=== PATIENT | male | born 1940 | race Caucasian/White ===

== ENCOUNTER 2016-09-28 21:31 | Emergency (ER) | payer MEDICARE, OTHER ==
[2016-09-28] MEDS ORDERED: OXYMETAZOLINE 0.05% NASL SPRAY 15 ML NASAL STA (22:25)
[2016-09-28 22:26] VITALS: RESP 18
--- NOTE | 2016-09-28 22:31 | ED ---
General Adult HPI - General Chief complaint: ENT Stated complaint: nose bleed-recurring Time Seen by Provider: 09/28/16 22:05 Source: patient, RN notes reviewed Mode of arrival: ambulatory Limitations: no limitations - History of Present Illness Initial comments: Chief complaint and history of present illness a 75-year-old male to complaint of on-again off-again nosebleed for the past 24 hours. It appears to be an anterior nosebleed the patient is able to control it by holding it. It starts again. Patient recently had a sinus infection for which she was treated. Denies injury, denies being on blood thinners other than aspirin. - Related Data Previous Rx's Medication Instructions Recorded Cephalexin [Keflex] 500 mg PO Q6HR #10 cap 09/28/16 Allergies Allergy/AdvReac Type Severity Reaction Status Date / Time No Known Allergies Allergy Verified 09/28/16 21:59 Review of Systems ROS Statement: Those systems with pertinent positive or pertinent negative responses have been documented in the HPI. Review of systems no headache or visual acuity changes no pain to his nose just right sided epistaxis. he presents to the emergency room with cotton stuffed in both nares. Leading at this time is controlled. Denies chest pain shows breath GI/ problems and denies any neuro deficits. All systems were reviewed. Past medical problems significant for hypertension. Denies any surgeries. Family history not to be dry. Patient denies any ALLERGIES. Nonsmoker. ROS Other: All systems not noted in ROS Statement are negative. Past Medical History Past Medical History: Hypertension History of Any Multi-Drug Resistant Organisms: None Reported Past Surgical History: No Surgical Hx Reported Past Psychological History: No Psychological Hx Reported Smoking Status: Never smoker Past Alcohol Use History: Occasional Past Drug Use History: None Reported General Exam - General Exam Comments Initial Comments: General: The patient is awake and alert, presents with right nares epistaxis. Vital signs are temperature 98.2 pulse 80 respiratory rate 20 pulse ox 97% room air blood pressure 188/91. This is repeated just after his nose was fixed with a Merocel. At 140/105. This be repeated Eye: Pupils are equal, round and reactive to light, extra-ocular movements are intact ; there is normal conjunctiva bilaterally. No signs of icterus. Ears, nose, mouth and throat: There are moist mucous membranes. Patient denies bleeding from the right nares which is controlled at this time. Patient blow his nose removed clots. Neck: The neck is supple, Cardiovascular: Regular rate and rhythm. No murmur appreciated. No chest pain. Respiratory: No difficulty breathing Gastrointestinal: No complaint of nausea vomiting or diarrhea. Limitations: no limitations Course Vital Signs 09/28/16 09/28/16 21:59 22:25 Temperature 98.2 F Pulse Rate 80 76 Respiratory 20 18 Rate Blood Pressure 188/91 148/108 O2 Sat by Pulse 97 97 Oximetry Medical Decision Making - Medical Decision Making Patient tolerated procedure well of placing a Merocel sponges with Afrin in his right nares. No bleeding. The patient's blood pressure came down to 139/86. Accu-Chek was performed. Patient is alert oriented having a difficulties. He was given 1 cephalexin 500 to be on antibiotics as long as his koi nasal passageways plugged. The patient wants to try to remove the nasal packing on his own in 2 days. He was advised how to do that by using an keeping the sponge moist with Afrin which is provided. If after removal he develops a recurrent bleeding is return emergency room. Disposition Clinical Impression: Anterior epistaxis Disposition: HOME SELF-CARE Condition: Stable Instructions: Nosebleed (ED) Additional Instructions: Use provided nasal clamp as directed. Follow directions for home well in 2 days. Take cephalexin 4 times daily as long as the sponges and your nose. Follow-up with family physician return emergency room as needed. Prescriptions: Cephalexin [Keflex] 500 mg PO Q6HR #10 cap Time of Disposition: 23:16
[2016-09-28] MEDS ORDERED: CEPHALEXIN 500MG STARTER PACK 4 CAP BTL PO STA (23:12)
[2016-09-28 23:13] VITALS: BP 139/86; PULSE 60
[2016-09-28 23:15] LABS: Glucose,Whole Blood 131 mg/dL (75-99)
[2016-09-28 23:26] VITALS: TEMP 97
== END 2016-09-28 23:29 | disposition home or self-care (01) ==
LOC: EC 21:31
DX: R04.0 Epistaxis (principal)
CPT/HCPCS: 30901; 36415; 99283

== ENCOUNTER 2017-10-13 17:00 | Inpatient (IN) | payer MEDICARE, OTHER ==
[2017-10-13 17:24] LABS: Glucose,Whole Blood 125 mg/dL (75-99)
[2017-10-13] MEDS ORDERED: SODIUM CHLORIDE 0.9% 1,000 ML IV STA (17:36)
--- NOTE | 2017-10-13 18:16 | CT ---
EXAMINATION TYPE: CT brain wo con DATE OF EXAM: 10/13/2017 COMPARISON: NONE HISTORY: Hand and facial numbness on and off for 1-[address] DLP: 1266 mGycm Automated exposure control for dose reduction was used. FINDINGS: There is cerebral cortical atrophy. There is no mass effect nor midline shift. There is no sign of in tracranial hemorrhage. There is some hypodensity in the periventricular white matter. There is mild m ucosal thickening in the lateral right maxillary sinus. Calvarium is intact. IMPRESSION: CEREBRAL ATROPHY AND CHRONIC SMALL VESSEL ISCHEMIA. NO ACUTE INTRACRANIAL ABNORMALITY.
--- NOTE | 2017-10-13 18:17 | XR ---
EXAMINATION TYPE: XR chest 2V DATE OF EXAM: 10/13/2017 COMPARISON: NONE HISTORY: Altered mental status TECHNIQUE: Frontal and lateral views of the chest are obtained. FINDINGS: There is no heart failure nor confluent pneumonic infiltrate. There is some linear density at the left lung base. There are chest leads. Costophrenic angles are clear. There is spurring in th e thoracic spine. IMPRESSION: Subsegmental atelectasis at the left lung base. No heart failure.
[2017-10-13 18:29] LABS: Basophils % (A) 1 %; Eosinophils # (A) 0.1 k/uL (0-0.7); Eosinophils % (A) 3 %; HCT 40.6 % (39.0-53.0); Lymphocytes # (A) 1.4 k/uL (1.0-4.8); Lymphocytes % (A) 27 %; MCH 29.2 pg (25.0-35.0); MCHC 34.3 g/dL (31.0-37.0); MCV 85.2 fL (80.0-100.0); Mean Platelet Volume 8.2; Monocytes # (A) 0.4 k/uL (0-1.0); Monocytes % (A) 8 %; Neutrophils # (A) 3.1 k/uL (1.3-7.7); Neutrophils % (A) 60 %; Platelet Count 167 k/uL (150-450); RBC 4.77 m/uL (4.30-5.90); RDW 13.7 % (11.5-15.5); WBC 5.1 k/uL (3.8-10.6)
[2017-10-13 18:39] LABS: INR 1.1 (<1.2); Partial Thromboplastin Time 22.5 sec (22.0-30.0); Prothrombin Time 10.6 sec (9.0-12.0)
[2017-10-13 18:50] LABS: ALT 24 U/L (21-72); AST 26 U/L (17-59); Albumin 3.9 g/dL (3.5-5.0); Alkaline Phosphatase 66 U/L (38-126); Anion Gap 16 mmol/L; Blood Urea Nitrogen 22 mg/dL (9-20); Calcium 9.4 mg/dL (8.4-10.2); Carbon Dioxide 24 mmol/L (22-30); Chloride 106 mmol/L (98-107); Glucose 119 mg/dL (74-99); Potassium 3.6 mmol/L (3.5-5.1); Sodium 146 mmol/L (137-145); Total Bilirubin 0.5 mg/dL (0.2-1.3); Total Protein 6.6 g/dL (6.3-8.2)
[2017-10-13 19:22] LABS: Creatine Kinase 165 U/L (55-170)
[2017-10-13 19:35] LABS: Creatine Kinase MB 1.9 ng/mL (0.0-2.4); Troponin I <0.012 ng/mL (0.000-0.034)
[2017-10-13] MEDS ORDERED: ENOXAPARIN 100 MG/ML SYRINGE SQ STA (21:01)
[2017-10-13] MEDS ORDERED: DILTIAZEM 50 MG in SODIUM CHLORIDE 0.9% 40 ML IV ONE (21:15)
--- NOTE | 2017-10-13 21:20 | ED ---
General Adult HPI - General Chief complaint: Neuro Symptoms/Deficit Stated complaint: Stroke like symptoms Time Seen by Provider: 10/13/17 17:29 Source: patient Mode of arrival: wheelchair Limitations: no limitations - History of Present Illness Initial comments: 76 years old male was visiting [place] 3 days ago he had episode where family noticed that he was forgetful for about a half an hour he was also complaining about some numbness and tingling in his fingers down his both hands. No weakness of upper or lower extremities he does have a history of firm high blood pressure he does take him parents for that today in the ER he noticed will complain about palpitations now there is no confusion some palpitation no chest pain no pleuritic chest pain no symptoms of TIA or CVA no abdominal pain no frequency urgency dysuria no signs of TIA or CVA - Related Data Home Medications Medication Instructions Recorded Confirmed Allopurinol [Zyloprim] 300 mg PO DAILY 10/13/17 10/13/17 Atorvastatin [Lipitor] 20 mg PO HS 10/13/17 10/13/17 Fluticasone Nasal [place] [Flonase 1 spray EA NOSTRIL RT-DAILY PRN 10/13/17 Nasal [place]] Ginkgo Biloba 500 mg PO DAILY 10/13/17 10/13/17 Metoprolol Succinate (ER) [Toprol 50 mg PO DAILY 10/13/17 10/13/17 Xl] Mirabegron [Myrbetriq] 25 mg PO DAILY 10/13/17 10/13/17 Prostate 1 tab PO DAILY 10/13/17 10/13/17 Triamterene/Hydrochlorothiazid 1 cap PO DAILY 10/13/17 10/13/17 [Dyazide 37.5-25 Capsule] amLODIPine BESYLATE/BENAZEPRIL 1 cap PO DAILY 10/13/17 10/13/17 [Lotrel 10-20 mg Capsule] Allergies Allergy/AdvReac Type Severity Reaction Status Date / Time No Known Allergies Allergy Verified 10/13/17 18:24 Review of Systems ROS Statement: Those systems with pertinent positive or pertinent negative responses have been documented in the HPI. ROS Other: All systems not noted in ROS Statement are negative. Past Medical History Past Medical History: Hypertension History of Any Multi-Drug Resistant Organisms: None Reported Past Surgical History: No Surgical Hx Reported Past Psychological History: No Psychological Hx Reported Smoking Status: Former smoker Past Alcohol Use History: Occasional Past Drug Use History: None Reported General Exam - General Exam Comments Initial Comments: General: The patient is awake and alert, in no distress, and does not appear acutely ill. Skin: Skin is warm and dry and no rashes or lesions are noted. Eye: Pupils are equal, round and reactive to light, extra-ocular movements are intact; there is normal conjunctiva bilaterally. Ears, nose, mouth and throat: There are moist mucous membranes and no oral lesions. Neck: The neck is supple, there is no tenderness or JVD. Cardiovascular: Noticed atrial fibrillation with RVR at the time of the exam heart rate was once pain Respiratory: To auscultation bilateral, no wheezing no rhonchi no distress respiratory sterling noticed Gastrointestinal: Soft, non-distended, non-tender abdomen without masses or organomegaly noted. There is no rebound or guarding present. Bowel sounds are unremarkable. Back: There is no tenderness to palpation in the midline. There is no obvious deformity. Musculoskeletal: Normal ROM, no tenderness, There is no pedal edema. There is no calf tenderness or swelling. No cords were appreciated. Neurological: CN II-XII intact, Cranial nerves III through XII are intact. There are no obvious motor or sensory deficits. Coordination appears grossly intact. Speech is normal. Psychiatric: Cooperative, appropriate mood & affect, normal judgment. Limitations: no limitations Course Vital Signs 10/13/17 10/13/17 10/13/17 17:03 17:32 18:07 Temperature 98.7 F Pulse Rate 101 H 71 92 Respiratory 18 20 18 Rate Blood Pressure 169/86 131/69 148/80 O2 Sat by Pulse 95 97 96 Oximetry 10/13/17 20:43 Temperature Pulse Rate 90 Respiratory 18 Rate Blood Pressure 170/106 O2 Sat by Pulse 98 Oximetry EKG Findings - EKG Comments: EKG Findings:: ALLERGIES no defibrillation medical evaluation he wants to got the old EKG from 2069 is a sinus rhythm medical rate is 93 QRS duration is 86 QT/QTc is 370/460 review of this EKG does not reveal any ST elevation or definite afebrile afebrile Medical Decision Making - Lab Data Result diagrams: 10/13/17 18:18 10/13/17 18:18 Lab Results 05/07/18 05/07/18 05/07/18 Range/Units 17:23 18:18 18:18 WBC 5.1 (3.8-10.6) k/uL RBC 4.77 (4.30-5.90) m/uL Hgb 14.0 (13.0-17.5) gm/dL Hct 40.6 (39.0-53.0) % MCV 85.2 (80.0-100.0) fL MCH 29.2 (25.0-35.0) pg MCHC 34.3 (31.0-37.0) g/dL RDW 13.7 (11.5-15.5) % Plt Count 167 (150-450) k/uL Neutrophils % 60 % Lymphocytes % 27 % Monocytes % 8 % Eosinophils % 3 % Basophils % 1 % Neutrophils # 3.1 (1.3-7.7) k/uL Lymphocytes # 1.4 (1.0-4.8) k/uL Monocytes # 0.4 (0-1.0) k/uL Eosinophils # 0.1 (0-0.7) k/uL Basophils # 0.0 (0-0.2) k/uL PT (9.0-12.0) sec INR (<1.2) APTT (22.0-30.0) sec Sodium (137-145) mmol/L Potassium (3.5-5.1) mmol/L Chloride (98-107) mmol/L Carbon Dioxide (22-30) mmol/L Anion Gap mmol/L BUN (9-20) mg/dL Creatinine (0.66-1.25) mg/dL Est GFR (CKD-EPI)AfAm (>60 ml/min/1.73 sqM) Est GFR (CKD-EPI)NonAf (>60 ml/min/1.73 sqM) Glucose (74-99) mg/dL POC Glucose (mg/dL) 125 H (75-99) mg/dL POC Glu Detail Technician ID Ambreen Ferreira Calcium (8.4-10.2) mg/dL Total Bilirubin (0.2-1.3) mg/dL AST (17-59) U/L ALT (21-72) U/L Alkaline Phosphatase (38-126) U/L Total Creatine Kinase 165 (55-170) U/L CK-MB (CK-2) 1.9 (0.0-2.4) ng/mL CK-MB (CK-2) Rel Index 1.2 Troponin I <0.012 (0.000-0.034) ng/mL Total Protein (6.3-8.2) g/dL Albumin (3.5-5.0) g/dL 10/13/17 10/13/17 Range/Units 18:18 18:18 WBC (3.8-10.6) k/uL RBC (4.30-5.90) m/uL Hgb (13.0-17.5) gm/dL Hct (39.0-53.0) % MCV (80.0-100.0) fL MCH (25.0-35.0) pg MCHC (31.0-37.0) g/dL RDW (11.5-15.5) % Plt Count (150-450) k/uL Neutrophils % % Lymphocytes % % Monocytes % % Eosinophils % % Basophils % % Neutrophils # (1.3-7.7) k/uL Lymphocytes # (1.0-4.8) k/uL Monocytes # (0-1.0) k/uL Eosinophils # (0-0.7) k/uL Basophils # (0-0.2) k/uL PT 10.6 (9.0-12.0) sec INR 1.1 (<1.2) APTT 22.5 (22.0-30.0) sec Sodium 146 H (137-145) mmol/L Potassium 3.6 (3.5-5.1) mmol/L Chloride 106 (98-107) mmol/L Carbon Dioxide 24 (22-30) mmol/L Anion Gap 16 mmol/L BUN 22 H (9-20) mg/dL Creatinine 0.90 (0.66-1.25) mg/dL Est GFR (CKD-EPI)AfAm >90 (>60 ml/min/1.73 sqM) Est GFR (CKD-EPI)NonAf 82 (>60 ml/min/1.73 sqM) Glucose 119 H (74-99) mg/dL POC Glucose (mg/dL) (75-99) mg/dL POC Glu Detail Technician ID Calcium 9.4 (8.4-10.2) mg/dL Total Bilirubin 0.5 (0.2-1.3) mg/dL AST 26 (17-59) U/L ALT 24 (21-72) U/L Alkaline Phosphatase 66 (38-126) U/L Total Creatine Kinase (55-170) U/L CK-MB (CK-2) (0.0-2.4) ng/mL CK-MB (CK-2) Rel Index Troponin I (0.000-0.034) ng/mL Total Protein 6.6 (6.3-8.2) g/dL Albumin 3.9 (3.5-5.0) g/dL Critical Care Time Total Critical Care Time: 30 Critical Care Time: Noticed new-onset atrial fibrillation with the RVR also noticed blood pressure was quite elevated patient had the PA and a TIA when he was traveling to [place] his amnesia stayed for about half an hour then he had down change in the mental status where he was confused there was also 2 days ago he is not on any blood thinners at this point her blood pressure was quite high as well though he does take him Norvasc plus KARLI inhibitor combination along with some diuretics and he said he took all his pills today he was given Lovenox 1 mg/kg subcu his creatinine is good, cardiology be consulted and he is currently echocardiogram to see if he needs to go on his overall toe a Coumadin with the that to cardiology will also consult neurology for amnesia which lasted for about [address] was done it did not show any subdural or epidural, didn't show any infarction either Disposition Clinical Impression: Atrial fibrillation with RVR, TIA (transient ischemic attack), Hypertension Disposition: ADMITTED IP TO THIS HOSP Condition: Good Referrals: Julio Gurrola MD [Primary Care Provider] - 1-2 days
[2017-10-13] MEDS ORDERED: ONDANSETRON 4 MG/2 ML VIAL IVP PRN (21:25)
[2017-10-13] MEDS ORDERED: MORPHINE SULFATE 4 MG/ML SYRINGE IV PRN (21:25)
[2017-10-13] MEDS ORDERED: NALOXONE 0.4 MG/ML 1 ML VIAL IV PRN (21:25)
[2017-10-13] MEDS ORDERED: FLUTICASONE 50MCG/SPRAY NASAL 16GM EA NOSTRIL PRN (21:31)
[2017-10-13 22:38] VITALS: BMI 32.5
[2017-10-14] MEDS: DILTIAZEM 50 MG in SODIUM CHLORIDE 0.9% 40 ML IV SCH ×2 (06:24→16:10)
--- NOTE | 2017-10-14 06:33 | HP ---
HISTORY AND PHYSICAL DATE OF SERVICE: 10/14/2017. CHIEF COMPLAINTS: Tingling, numbness, some forgetfulness. HISTORY OF PRESENT ILLNESS: This 77-year-old gentleman with a past medical history of multiple medical problems including hypertension, being followed by Dr. Gurrola in the outpatient setting was apparently went down to and the patient woke up and the family found the patient slightly disoriented. Patient feeling dizzy. Because of concern for stroke, patient taken to [facility] and admitted for further evaluation and treatment. CT scan of the brain did not show any acute abnormality, but however the patient was found to have new onset atrial fibrillation. Lovenox was given and the patient was also started on Cardizem drip at 5 mg with control of the heart rate. There is no history of any fever, rigors. No history of chest pain, palpitation at this time. PAST MEDICAL HISTORY: History of hypertension. MEDICATIONS: Prior to admission include home medications are: 1. Ginkgo biloba prostate 1 p.o. daily. 2. Zyloprim 300 mg. 3. Myrbetriq 25 mg p.o. daily. 4. Flonase 1 spray daily p.r.n. 5. Lipitor 20 mg q.h.s. 6. Lotrel 10/20 p.o. daily. 7. 37.5/25 p.o. daily. 8. Toprol-XL 50 mg. ALLERGIES: None. FAMILY HISTORY: History of CVA, TIA in the family. SOCIAL HISTORY: History of alcohol. No history of smoking. REVIEW OF SYSTEMS: ENT: No diminished hearing or vision. CARDIOVASCULAR: No angina. RESPIRATORY: As mentioned earlier. GI: No nausea. : No dysuria. NERVOUS SYSTEM: As mentioned earlier. ALLERGY: No asthma. MUSCULOSKELETAL: As mentioned earlier. HEMATOLOGY: No history of anemia. ENDOCRINE: No history of diabetes or hyperthyroidism. CONSTITUTIONAL: As mentioned earlier. DERMATOLOGY: Negative. RHEUMATOLOGY: Negative. PSYCHIATRY: As mentioned earlier. PHYSICAL EXAMINATION: Alert and oriented x2. Pulse 95. Blood pressure 149/83, respiration 18, temperature 98.3, pulse ox 94% on room air. HEENT: Conjunctivae normal. Oral mucosa moist. Neck is no jugular venous distention. No carotid bruit. No lymph node enlargement. CARDIOVASCULAR: S1, S2. No S3, no S4. RESPIRATORY: Breath sounds diminished in the bases. A few scattered rhonchi. No crackles. ABDOMEN: Soft, nontender. No mass palpable. LEGS: No edema, no swelling. NERVOUS SYSTEM: Higher functions as mentioned earlier. Moves all 4 limbs. No focal motor deficits. LYMPHATICS: No lymphadenopathy in the neck, axillae, groin. SKIN: No ulcers. LAB STUDIES: At this time, sodium 142. CBC within normal limits. ASSESSMENT: 1. Weakness and dizziness and disorientation, possible acute transient ischemic attack. 2. Atrial fibrillation with new fast ventricular rate. 3. Hypertension. 4. Hyperlipidemia. RECOMMENDATIONS AND DISCUSSION: This 77-year-old gentleman who presented with multiple complex medical issues, will monitor the patient closely. Continue the current management and symptomatic treatment. Start antiplatelet agents, full neurovascular workup. Cardiology and neurology consultations will be obtained. 2D echo and carotid Doppler. Prognosis guarded because of the complex medical issues. The patient is given Lovenox at this time. Long-term anticoagulation is recommended after evaluation with a 2D echo. Discussed with the patient who understands. Further recommendations to follow. Dr. Bush will follow. MMODL / IJN: [id number] / MTDD
[2017-10-14] MEDS: amLODIPine 10 MG TAB PO SCH (08:49)
[2017-10-14] MEDS: METOPROLOL SUCCINATE (ER) 50 MG TAB.ER.24H PO SCH (08:49)
[2017-10-14] MEDS: TRIAMTERENE-HCTZ 37.5-25MG 1 EACH CAP PO SCH (08:49)
[2017-10-14] MEDS: ALLOPURINOL 300 MG TAB PO SCH (08:49)
[2017-10-14] MEDS: ASPIRIN 81 MG PO SCH (08:49)
[2017-10-14] MEDS: LISINOPRIL 20 MG TAB PO SCH (08:49)
[2017-10-14] MEDS: NON-FORMULARY DRUG (Mirabegron [Myrbetriq] 25 MG) PO SCH (08:59)
[2017-10-14] MEDS ORDERED: NON-FORMULARY DRUG (Ginkgo Biloba [Ginkgo Biloba] 500 MG) PO SCH (09:00)
[2017-10-14] MEDS ORDERED: ENOXAPARIN 100 MG/ML SYRINGE SQ SCH (09:00)
[2017-10-14] MEDS ORDERED: PROSTATE PO SCH (09:00)
--- NOTE | 2017-10-14 10:25 | ECHOF ---
Referral Reason:New onset afib MEASUREMENTS -------- HEIGHT: 152.4 cm WEIGHT: 103.0 kg BP: 200/60 IVSd: 1.4 cm (0.6 - 1.1) LVIDd: 5.2 cm (3.9 - 5.3) LVPWd: 1.2 cm (0.6 - 1.1) IVSs: 1.5 cm LVIDs: 3.1 cm LVPWs: 1.6 cm LA Diam: 4.9 cm (2.7 - 3.8) LAESV Index (A-L): 35.46 ml/m Ao Diam: 4.0 cm (2.0 - 3.7) AV Cusp: 1.9 cm (1.5 - 2.6) LA Diam: 4.2 cm (2.7 - 3.8) MV EXCURSION: 16.898 mm (> 18.000) MV EF SLOPE: 158 mm/s (70 - 150) EPSS: 0.2 cm MV E Thor: 0.86 m/s MV DecT: 157 ms MV A Thor: 0.33 m/s MV E/A Ratio: 2.63 RAP: 5.00 mmHg RVSP: 27.27 mmHg FINDINGS -------- Atrial fibrillation. This was a technically adequate study. The left ventricular size is normal. There is mild concentric left ventricular hypertrophy. Overa ll left ventricular systolic function is low-normal with, an EF between 50 - 55 %. The right ventricle is normal in size. The left atrium is markedly dilated. LA is moderately dilated 34-39 ml/m2 The right atrial size is normal. The aortic valve is trileaflet, and appears structurally normal. No aortic stenosis or regurgitation. Mild mitral annular calcification present. Mild mitral regurgitation is present. Mild tricuspid regurgitation present. There is no evidence of pulmonary hypertension. The right v entricular systolic pressure, as measured by Doppler, is 27.27mmHg. There is no pulmonic regurgitation present. The aortic root size is normal. There is no pericardial effusion. CONCLUSIONS -------- 1. The left ventricular size is normal. 2. There is mild concentric left ventricular hypertrophy. 3. Overall left ventricular systolic function is low-normal with, an EF between 50 - 55 %. 4. The left atrium is markedly dilated. 5. LA is moderately dilated 34-39 ml/m2 6. The aortic valve is trileaflet, and appears structurally normal. No aortic stenosis or regurgitati on. 7. Mild mitral annular calcification present. 8. Mild mitral regurgitation is present. 9. Mild tricuspid regurgitation present. 10. There is no evidence of pulmonary hypertension. 11. The right ventricular systolic pressure, as measured by Doppler, is 27.27mmHg. 12. There is no pulmonic regurgitation present. 13. The aortic root size is normal. 14. There is no pericardial effusion. COMMUNICATIONS PROJECT MANAGER: Jennifer Alston RDCS
[2017-10-14] MEDS ORDERED: MORPHINE ORAL SOLN 10 MG/5 ML CUP PO PRN (10:33)
--- NOTE | 2017-10-14 12:05 | US ---
EXAMINATION TYPE: US carotid duplex BILAT DATE OF EXAM: 10/14/2017 COMPARISON: NONE CLINICAL HISTORY: 77-year-old male numbness/tingling in arms, episode of amnesia. TECHNIQUE: Carotid duplex ultrasound examination. Indirect Doppler criteria was utilized. FINDINGS: EXAM MEASUREMENTS: RIGHT: Peak Systolic Velocity (PSV) cm/sec ----- Right CCA: 70.3 ----- Right ICA: 104.4 ----- Right ECA: 95.6 ICA/CCA ratio: 1.5 RIGHT: End Diastole cm/sec ----- Right CCA: 20.6 ----- Right ICA: 21.3 ----- Right ECA: 11.8 LEFT: Peak Systolic Velocity (PSV) cm/sec ----- Left CCA: 63.6 ----- Left ICA: 65.0 ----- Left ECA: 23.9 ICA/CCA ratio: 1.0 LEFT: End Diastole cm/sec ----- Left CCA: 13.4 ----- Left ICA: 14.8 ----- Left ECA: 23.9 VERTEBRALS (direction of flow): Right Vertebral: unable to visualize Left Vertebral: Antegrade Rhythm: Arrhythmia Emergency Management System Director notes: Patient had thick neck, some technical limitations. Severe atherosclerotic changes with no significant velocity increases seen bilaterally. IMPRESSION: 1. 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 2. Unable to visualize the right vertebral artery. This could be due to technical limitations, congen itally diminutive size, or occlusion. Criteria for Assigning % of Stenosis / Diameter reduction (Estimation based on the indirect measurements of the internal carotid artery velocities (ICA PSV). 1. Normal (no stenosis)=ICA PSV < 125 cm/s: ratio < 2.0: ICA EDV<40 cm/s. 2. Less than 50% stenosis=ICA PSV < 125 cm/s: ratio < 2.0: ICA EDV<40 cm/s. 3. 50 to 69% stenosis=ICA PSV of 125 to 230 cm/s: ration 2.0 ? 4.0: ICA EDV 40-100 cm/s. 4. Greater than 70% stenosis to near occlusion= ICA PSV > 230 cm/s: ratio > 4.0: ICA EDV > 100 cm/s. 5. Near occlusion= ICA PSV velocities may be low or undetectable: variable ratio and ICA EDV. 6. Total occlusion=unable to detect flow.
[2017-10-14] MEDS ORDERED: PROPAFENONE 150 MG TAB PO STA (15:56)
--- NOTE | 2017-10-14 16:01 | P.CRDCN ---
History of Present Illness Consult date: 10/14/17 Requesting physician: Qing Alonso Consult reason: atrial fibrillation Chief complaint: Brief episode of memory loss, atrial fibrillation History of present illness: This is a pleasant 77-year-old gentleman with history of hypertension , hyperlipidemia, prior TIA, who was recently at the [facility], he states that he drank an excessive amount while he was there, the following morning upon wakening he did not know he where he was, the symptoms lasted approximately 15 minutes in duration. They drove home, and patient came to the hospital and for further evaluation. On presentation here patient was found to be in atrial fibrillation with rapid ventricular response on he was initiated on Lovenox as well as a Cardizem drip.Echo revealed an ejection fraction of 50- 55%. Time of my examination, patient continues to be in atrial fibrillation, he is asymptomatic. He is on a Cardizem drip at 5 and his heart rate is low 100s. We will give the patient a one-time dose of Rythmol to see if we can convert the patient to normal sinus rhythm. We'll discontinue the Lovenox and start the patient on Eliquis 5 mg one tablet by mouth twice a day. It was explained to the patient the importance of anticoagulation for stroke prevention. Past Medical History Past Medical History: Hypertension History of Any Multi-Drug Resistant Organisms: None Reported Past Surgical History: No Surgical Hx Reported Past Anesthesia/Blood Transfusion Reactions: Unable to Obtain Past Psychological History: No Psychological Hx Reported Smoking Status: Never smoker Past Alcohol Use History: Occasional Additional Past Alcohol Use History / Comment(s): Reports drinking 1-2 drinks per day. Used to smoke cigars. Past Drug Use History: None Reported - Past Family History Mother Family Medical History: CVA/TIA Father Family Medical History: Myocardial Infarction ([place]) Medications and Allergies Home Medications Medication Instructions Recorded Confirmed Type Allopurinol [Zyloprim] 300 mg PO DAILY 10/13/17 10/13/17 History Atorvastatin [Lipitor] 20 mg PO HS 10/13/17 10/13/17 History Fluticasone Nasal [place] [Flonase 1 spray EA NOSTRIL RT-DAILY PRN 10/13/17 History Nasal [place]] Ginkgo Biloba 500 mg PO DAILY 10/13/17 10/13/17 History Metoprolol Succinate (ER) [Toprol 50 mg PO DAILY 10/13/17 10/13/17 History Xl] Mirabegron [Myrbetriq] 25 mg PO DAILY 10/13/17 10/13/17 History Prostate 1 tab PO DAILY 10/13/17 10/13/17 History Triamterene/Hydrochlorothiazid 1 cap PO DAILY 10/13/17 10/13/17 History [Dyazide 37.5-25 Capsule] amLODIPine BESYLATE/BENAZEPRIL 1 cap PO DAILY 10/13/17 10/13/17 History [Lotrel 10-20 mg Capsule] Allergies Allergy/AdvReac Type Severity Reaction Status Date / Time No Known Allergies Allergy Verified 10/13/17 18:24 Physical Exam Vitals: Vital Signs Temp Pulse Pulse Resp BP BP Pulse Ox 10/14/17 15:19 96.0 F L 74 18 136/79 97 10/14/17 11:39 96.8 F L 92 16 167/87 95 10/14/17 09:13 95 10/14/17 08:00 96.0 F L 91 16 139/88 95 10/14/17 03:30 96.1 F L 98 18 141/83 96 10/14/17 00:00 97.0 F L 87 18 123/87 95 10/13/17 22:20 96.3 F L 95 18 148/93 94 L 10/13/17 22:03 94 18 160/80 98 10/13/17 21:25 98.2 F 93 20 146/80 98 10/13/17 20:43 90 18 170/106 98 10/13/17 18:07 92 18 148/80 96 10/13/17 17:32 71 20 131/69 97 10/13/17 17:03 98.7 F 101 H 18 169/86 95 Intake and Output 10/14/17 10/14/17 10/14/17 06:59 14:59 22:59 Intake Total 490 Output Total 450 Balance -450 490 Intake: Intake, IV Titration 160 Amount Sodium Chloride 0.9% 1, 160 000 ml @ 100 mls/hr IV . Q10H STA Rx#:[id number] Oral 330 Output: Urine 450 Other: Voiding Method Toilet Urinal # Voids 2 # Bowel Movements 0 Weight 103 kg PHYSICAL EXAMINATION: HEENT: Head is atraumatic, normocephalic. Pupils equal, round. Neck is supple. There is no elevated jugular venous pressure. HEART EXAMINATION: Heart S1 and S2 irregularly irregular CHEST EXAMINATION: Lungs are clear to auscultation and precussion. No chest wall tenderness is noted on palpation or with deep breathing. ABDOMEN: Soft, nontender. Bowel sounds are heard. No organomegaly noted. EXTREMITIES: 2+ peripheral pulses with no evidence of peripheral edema and no calf tenderness noted. NEUROLOGIC patient is awake, alert and oriented -3. . Results 10/13/17 18:18 10/13/17 18:18 Cardiac Enzymes 10/13/17 10/13/17 Range/Units 18:18 18:18 AST 26 (17-59) U/L CK-MB (CK-2) 1.9 (0.0-2.4) ng/mL Troponin I <0.012 (0.000-0.034) ng/mL Coagulation 10/13/17 Range/Units 18:18 PT 10.6 (9.0-12.0) sec APTT 22.5 (22.0-30.0) sec CBC 10/13/17 Range/Units 18:18 WBC 5.1 (3.8-10.6) k/uL RBC 4.77 (4.30-5.90) m/uL Hgb 14.0 (13.0-17.5) gm/dL Hct 40.6 (39.0-53.0) % Plt Count 167 (150-450) k/uL Comprehensive Metabolic Panel 10/13/17 Range/Units 18:18 Sodium 146 H (137-145) mmol/L Potassium 3.6 (3.5-5.1) mmol/L Chloride 106 (98-107) mmol/L Carbon Dioxide 24 (22-30) mmol/L BUN 22 H (9-20) mg/dL Creatinine 0.90 (0.66-1.25) mg/dL Glucose 119 H (74-99) mg/dL Calcium 9.4 (8.4-10.2) mg/dL AST 26 (17-59) U/L ALT 24 (21-72) U/L Alkaline Phosphatase 66 (38-126) U/L Total Protein 6.6 (6.3-8.2) g/dL Albumin 3.9 (3.5-5.0) g/dL Current Medications Generic Name Dose Route Start Last Admin Trade Name Freq PRN Reason Stop Dose Admin Allopurinol 300 mg 10/14/17 09:00 10/14/17 08:49 Zyloprim PO 300 mg DAILY CHAITANYA Administration Amlodipine Besylate 10 mg 10/14/17 09:00 10/14/17 08:49 Norvasc PO 10 mg DAILY CHAITANYA Administration Aspirin 81 mg 10/14/17 09:00 10/14/17 08:49 Aspirin PO 81 mg DAILY CHAITANYA Administration Atorvastatin Calcium 20 mg 10/14/17 21:00 Lipitor PO HS CHAITANYA Enoxaparin Sodium 100 mg 10/14/17 09:00 10/14/17 08:49 Lovenox SQ 100 mg BID [facility] Administration Fluticasone Propionate 1 spray 10/13/17 21:31 Flonase Nasal [place] EA NOSTRIL RT-DAILY PRN Allergy Symptoms Diltiazem HCl 50 mg/ Sodium 50 mls @ 5 mls/hr 10/14/17 04:00 10/14/17 06:24 Chloride IV 5 mg/hr .Q10H CHAITANYA 5 mls/hr 5 MG/HR Administration Lisinopril 20 mg 10/14/17 09:00 10/14/17 08:49 Zestril PO 20 mg DAILY [facility] Administration Metoprolol Succinate 50 mg 10/14/17 09:00 10/14/17 08:49 Toprol Xl PO 50 mg DAILY CHAITANYA Administration Morphine Sulfate 12 mg 10/14/17 10:33 Morphine Oral Allyn 2mg/Ml PO Q4HR PRN Severe Pain Naloxone HCl 0.2 mg 10/13/17 21:25 Narcan IV Q2M PRN Opioid Reversal Non-Formulary Medication 25 mg 10/14/17 09:00 10/14/17 08:59 Mirabegron [Myrbetriq] PO Not Given DAILY [facility] Ondansetron HCl 4 mg 10/13/17 21:25 Zofran IVP Q8HR PRN Nausea And Vomiting Triamterene/HCTZ 1 each 10/14/17 09:00 10/14/17 08:49 Dyazide PO 1 each DAILY CHAITANYA Administration Intake and Output 10/14/17 10/14/17 10/14/17 06:59 14:59 22:59 Intake Total 490 Output Total 450 Balance -450 490 Intake: Intake, IV Titration 160 Amount Sodium Chloride 0.9% 1, 160 000 ml @ 100 mls/hr IV . Q10H STA Rx#:[id number] Oral 330 Output: Urine 450 Other: Voiding Method Toilet Urinal # Voids 2 # Bowel Movements 0 Weight 103 kg 10/13/17 18:18 10/13/17 18:18 EKG Interpretations (text) EKG shows atrial fibrillation with a rapid ventricular response. Assessment and Plan Plan: Assessment and plan #1 atrial fibrillation with rapid ventricular response, of new onset, paroxysmal. #2 hypertension #3 hyperlipidemia #4 prior TIA #5 episode of excessive alcohol intake the night prior. #6 brief episode of memory loss. CT of the chest reveals cerebral atrophy and chronic small vessel ischemia. No acute intracranial abnormality noted Plan Echocardiogram with Doppler study was performed which revealed an ejection fraction of 50-55%. We will give the patient one time dose of Rythmol 600 mg now. Discontinue the IV Cardizem drip. Obtain TSH level .Discontinue Lovenox and initiate Eliquis 5 mg one tablet by mouth twice a day. Patient has been educated regarding the importance of anticoagulation for stroke prevention. We will continue to follow. DNP note has been reviewed, I agree with a documented findings and plan of care. Patient was seen and examined.
[2017-10-14] MEDS ORDERED: RX INFO: IV CONTRAST WAS GIVEN 1 EACH MISC MISCELLANE PRN (19:40)
[2017-10-14] MEDS: ATORVASTATIN 20 MG TAB PO SCH (20:24)
[2017-10-14] MEDS: APIXABAN 5 MG TAB PO SCH (20:25)
--- NOTE | 2017-10-14 22:51 | CONS ---
CONSULTATION DATE OF CONSULTATION: 10/14/2017 CHIEF COMPLAINT: Altered mental status. HISTORY OF PRESENT ILLNESS: The patient is a pleasant 77-year-old male who is being evaluated by the Neurology service per the request of Dr. Alonso for an episode of confusion. The patient was with his family on Friday night and was drinking heavily. When he woke up on Friday morning, he was quite confused and disoriented. The patient was taken home by his family and his symptoms slowly improved over the next couple of days. The patient was taken to his primary care physician, Dr. Gurrola yesterday and it was recommended that he be admitted for further workup and management. In the emergency room, a CT scan of the brain was done, which showed no acute findings. There was generalized atrophy and small-vessel ischemic changes. According to his son, who was at bedside at the time of my evaluation, the patient was still somewhat confused yesterday. His symptoms were gradually getting better. Today, the patient appears to be at his baseline. The patient denies any lateralizing numbness or weakness and denies any headache or dizziness. A carotid Doppler was done, which showed moderate atherosclerosis bilaterally with no hemodynamically significant stenosis. His right vertebral artery was not visualized. His CBC, INR, comprehensive metabolic profile, TSH and cardiac enzymes were reviewed and were all within normal limits. At the time of my evaluation, he is sitting in his bedside chair and appears to be in no acute distress. The patient has been ambulating with no difficulties. PAST MEDICAL HISTORY: Hypertension, dyslipidemia. SOCIAL HISTORY: He drinks alcohol usually on weekends. There is no history of any tobacco or drug use. FAMILY HISTORY: Positive for strokes. HOME MEDICATIONS: Reviewed in the chart. ALLERGIES: No known drug allergies. REVIEW OF SYSTEMS: CONSTITUTIONAL: Negative. EYES: Negative. ENT: Negative. CARDIOVASCULAR: Negative. RESPIRATORY: Negative. NEUROLOGICAL: As mentioned above. GASTROINTESTINAL: Negative. GENITOURINARY: Negative. DERMATOLOGICAL: Negative. PSYCHIATRIC: Negative. MUSCULOSKELETAL: Positive for occasional joint pain. ENDOCRINE: Negative. PHYSICAL EXAM: Vital signs show a temperature of 96.0, pulse 74, respiration 18, blood pressure 136/79. GENERAL APPEARANCE: The patient is a well-developed, elderly male, who appears to be in no acute distress. HEENT: Normocephalic, atraumatic, no facial asymmetry is seen. NECK: Supple with no masses felt. CARDIOVASCULAR: Irregularly irregular rhythm with a normal rate. ABDOMEN: Nontender, nondistended. Extremities showed no edema or clubbing. NEUROLOGICAL EXAM: The patient is alert, aware and oriented x3. Speech and language are normal. Strength is full in all 4 extremities. Sensory exam was normal to light touch in all 4 extremities. No pronator drift is seen. No tremors or seizure-like activity is noticed. No facial asymmetry is seen on cranial nerve testing. IMPRESSION: 1. Transient confusion. 2. Small vessel ischemic disease. 3. Atrial fibrillation, new diagnosis. 4. Abnormal carotid Doppler. RECOMMENDATION: The patient's altered mental status occurred after a night of heavy alcohol use. I do believe this was mostly alcohol related as he gradually improved over the weekend as mentioned above. The patient is back to baseline at this time. His CT of the brain showed no significant abnormalities and his neurological examination is normal. An EEG has been ordered. As for his carotid Doppler findings, which mentions that the right vertebral artery was not visualized, I will order a CT angiogram of the brain and the neck for confirmation of any occlusion versus normal variance. Continue neuro checks. I will continue to follow with you. Further recommendations to follow. Thank you for allowing me to participate in the care of your patient. If you have any questions, please feel free to contact me. KRISTA / IJN: [id number] /
--- NOTE | 2017-10-15 00:33 | CT ---
EXAMINATION TYPE: CT angio head neck DATE OF EXAM: 10/14/2017 HISTORY: Numbness in bilateral arms. COMPARISON: NONE CT DLP: 427.1 mGycm. Automated Exposure Control for Dose Reduction was Utilized. TECHNIQUE: CTA scan of the neck is performed with IV Contrast, patient injected with 65ml mL of Isov ue 370, axial images are obtained, coronal and sagittal reformatted images are reviewed. Three-D arden nstructed images are created on an independent workstation and reviewed. FINDINGS: There is normal branching pattern of the great vessels on the aortic arch. There is arterial flow in the vertebral arteries. Left vertebral artery is much larger than the right. There is arterial flow i n the common internal and external carotid arteries bilaterally. There is significant lung segment pl aque formation at the right carotid artery bifurcation and estimated lumen narrowing of 60-70%. This is seen in the proximal right internal carotid artery. There is mild plaque formation on the left anali e and estimated lumen narrowing of 25% in the proximal left internal carotid artery. There is bilater al wide patency of the external carotid arteries. There is no evidence of carotid dissection. There is arterial flow in the vertebral basilar artery system. There is no significant flow in the po sterior communicating arteries. There is arterial flow in the anterior middle and posterior cerebral arteries. There is flow in both intracranial internal carotid arteries. I see no evidence of aneurysm or neovascularity. There is no sign of spasm. There is no mass effect. I see no significant luminal narrowing. There is normal contrast opacification of the venous sinuses. : Conclusion There is approximate 70% stenosis in the proximal right internal carotid artery due to extensive calc ified plaque. There is approximate 25% stenosis proximal left internal carotid artery due to plaque. No significant intracranial abnormality.
[2017-10-15] MEDS: APIXABAN 5 MG TAB PO SCH ×2 (10:52→21:28)
[2017-10-15] MEDS: LISINOPRIL 20 MG TAB PO SCH (10:52)
[2017-10-15] MEDS: ASPIRIN 81 MG PO SCH (10:52)
[2017-10-15] MEDS: amLODIPine 10 MG TAB PO SCH (10:52)
[2017-10-15] MEDS: ALLOPURINOL 300 MG TAB PO SCH (10:52)
[2017-10-15] MEDS: TRIAMTERENE-HCTZ 37.5-25MG 1 EACH CAP PO SCH (10:53)
[2017-10-15] MEDS: METOPROLOL SUCCINATE (ER) 50 MG TAB.ER.24H PO SCH (10:53)
[2017-10-15] MEDS: NON-FORMULARY DRUG (Mirabegron [Myrbetriq] 25 MG) PO SCH (10:53)
[2017-10-15] MEDS ORDERED: DEXTROSE 5% IN WATER 100 ML with AMIODARONE 150 MG IV ONE (14:08)
--- NOTE | 2017-10-15 14:34 | P.PN ---
Subjective Progress Note Date: 10/15/17 Principal diagnosis: Altered mental status This 77-year-old male continuing be evaluated by the neurology service for an episode of confusion. He woke up confused on Friday morning after a Friday night of drinking. His symptoms were slow to improve over the next couple days. He was seen by his primary care physician and they felt that he needed further workup. CT of the brain in the emergency room showed no acute intracranial abnormalities. There was some generalized fast atrophy and small vessel ischemia. His altered mental status is resolved. Recall that her carotid Doppler showed moderate atherosclerosis bilaterally. The right vertebral artery was not visualized so CTA was performed. CTA showed 70% occlusion of the right internal carotid artery and 25% on the left. Cardiology is following. At the time of my exam he is resting comfortably in bed in no acute distress. Objective - Vital Signs Vital signs: Vital Signs Temp 97.1 F L 10/15/17 11:07 Pulse 87 10/15/17 11:09 Resp 18 10/15/17 11:09 BP 173/97 10/15/17 11:07 Pulse Ox 96 10/15/17 11:07 Intake & Output 10/14/17 10/15/17 10/15/17 18:59 06:59 18:59 Intake Total 730 230 Balance 730 230 Weight 105.9 kg Intake: Intake, IV Titration 160 Amount Sodium Chloride 0.9% 1, 160 000 ml @ 100 mls/hr IV . Q10H STA Rx#:[id number] Oral 570 230 Other: Voiding Method Toilet Toilet Urinal Urinal # Voids 2 2 # Bowel Movements 0 - Constitutional General appearance: Present: average body habitus, cooperative - EENT Eyes: Present: abnormal pupil, PERRLA. Absent: ptosis ENT: Present: hearing grossly normal - Neck Neck: Present: normal ROM. Absent: rigidity - Respiratory Respiratory: negative: prolonged expiration, prolonged inspiration - Cardiovascular Rhythm: regular - Gastrointestinal General gastrointestinal: Absent: distended, tenderness - Neurologic Neurologic Comment(s): The patient is alert awake and oriented 3. Speech and language are normal. There is no facial asymmetry. Strength is 5 out of 5 in bilateral upper and lower extremities. There is no sensory deficit. No tremors or seizures are seen. Cranial nerves II through XII are intact globally. - Labs CBC & Chem 7: 10/13/17 18:18 05/07/18 18:18 Assessment and Plan (1) Altered mental status Current Visit: Yes Status: Resolved Code(s): R41.82 - ALTERED MENTAL STATUS , UNSPECIFIED SNOMED Code(s): 961107402 (2) Small vessel disease, cerebrovascular Current Visit: Yes Status: Chronic Code(s): I67.9 - CEREBROVASCULAR DISEASE , UNSPECIFIED SNOMED Code(s): 779965935 (3) Atrial fibrillation Current Visit: Yes Status: Acute Code(s): I48.91 - UNSPECIFIED ATRIAL FIBRILLATION SNOMED Code(s): 12435058 (4) Carotid stenosis Current Visit: Yes Status: Chronic Code(s): I65.29 - OCCLUSION AND STENOSIS OF UNSPECIFIED CAROTID ARTERY SNOMED Code(s): 59254014 Plan: The patient's altered mental status has improved. Recommend following an outpatient with cardiovascular surgeon. Highly recommend alcohol cessation. Continue antiplatelets and antihyperlipidemics. Barring any unforeseen abnormalities on his EEG he is cleared from a neurological standpoint. I have performed a history and physical on the above patient. I have reviewed the above note, and agree.
[2017-10-15] MEDS: AMIODARONE 450 MG in DEXTROSE 5% IN WATER 250 ML IV SCH ×4 (15:26→21:25)
[2017-10-15] MEDS: SODIUM CHLORIDE 0.9% 1,000 ML IV SCH (17:17)
--- NOTE | 2017-10-15 18:28 | EEG ---
ELECTROENCEPHALOGRAM REPORT DATE OF SERVICE: 10/15/2017. REASON FOR TESTING: Altered mental status. DESCRIPTION OF THE PROCEDURE: This EEG was performed using a 21 channel digital electroencephalograph, following international 10-20 system. DESCRIPTION OF THE RECORDING: From the beginning of the tracing, and with patient's eyes closed, the background rhythm was mostly consisting of 8 Hz alpha frequency in the posterior occipital leads. No obvious asymmetry is seen. Photic stimulation was performed with a minimal driving response seen. No pathological waves were elicited. Hyperventilation was not performed. Occasional movement artifacts are seen. The patient remains awake throughout the tracing. No epileptiform discharges were seen. His EKG lead showed an irregularly irregular rhythm with a normal rate. INTERPRETATION: This awake EEG can be considered within normal limits except his EKG lead showed an irregularly irregular rhythm with a normal rate. No epileptiform discharges were seen. The absence of epileptiform discharges does not rule out the diagnosis of epilepsy, therefore clinical correlation is recommended. MMHEATHERL / IJN: [id number] /
--- NOTE | 2017-10-15 18:55 | PN ---
PROGRESS NOTE This patient was admitted with some mental status changes and questionable TIA. Neurology consultation noted. The patient remains in atrial flutter with a controlled rate. Blood pressure is 160/70 mmHg. First and second heart sounds are normal. Lungs are clinically clear to auscultation and percussion. Patient's carotid duplex study shows 70% stenosis. Discussed with the patient we will start the patient on IV amiodarone and see whether we can convert the patient to the normal sinus rhythm, otherwise patient will be considered for a STONE cardioversion tomorrow. MMODL / IJN: [id number] /
--- NOTE | 2017-10-15 20:09 | MR ---
EXAMINATION TYPE: MR brain wo/w con DATE OF EXAM: 10/15/2017 COMPARISON: NONE HISTORY: R/O CVA Gadavist 10 TECHNIQUE: Multiplanar, multisequence images of the brain and brainstem is performed without and with IV contras t, utilizing 10 mL intravenous Gadavist . FINDINGS: There is cerebral cortical atrophy. There is no mass effect nor midline shift. There is no sign of intracranial hemorrhage. There is thinning of the corpus callosum. There is mild extensive nu merous foci of increased signal in the periventricular white matter on the T2 and FLAIR images. These measure up to 1 cm in the total number is more than 25. There is mild mucosal thickening in the righ t maxillary and ethmoid air cells. There is no evidence of orbital mass. The brainstem is intact. I s ee no definite cortical infarct. I see no pathologic enhancement. IMPRESSION: Mild sinusitis. Extensive white matter changes consistent with chronic small vessel ischemia or demyelinating disease . Cerebral atrophy. No evidence of cortical infarct.
[2017-10-15] MEDS: ATORVASTATIN 20 MG TAB PO SCH (21:28)
--- NOTE | 2017-10-15 21:34 | PN ---
PROGRESS NOTE DATE OF SERVICE: 10/15/2017 PRESENTING COMPLAINT: Increasing forgetfulness. INTERVAL HISTORY: The patient admitted with increasing forgetfulness. Neuro workup is in play. The patient is more awake today, tolerating a diet, awaiting some more studies, including EEG results when I saw this patient, also was pending an MRI as per Neurology. The patient also remains in atrial fibrillation. REVIEW OF SYSTEMS: Done for constitutional, cardiovascular, GI, pulmonary; relevant findings as above. CURRENT MEDICATIONS: Reviewed that include: 1. Allopurinol. 2. Norvasc. 3. Eliquis. 4. Zestril. 5. Toprol. EXAMINATION: Temperature 97.1 pulse 87, respirations 18, blood pressure 133/97, pulse ox 96% on room air. GENERAL APPEARANCE: Sitting up at the edge of the bed, more comfortable. EYES: Pupil equal. Conjunctivae normal. NECK: JVD not raised. Mass not palpable. RESPIRATORY: Effort normal. LUNGS: Slightly decreased breath sounds. CARDIOVASCULAR: Heart sounds irregular. No edema. ABDOMEN: Soft, nontender. Liver, spleen not palpable. PSYCHIATRY: Awake, answering questions appropriately. INVESTIGATIONS: White count 5.1, potassium 4.6. ASSESSMENT: 1. Possible acute metabolic upon admission, cause unclear. 2. Essential hypertension. 3. Persistent atrial fibrillation. 4. Check for cognitive impairment. 5. Right internal carotid artery 70% stenosis. PLAN: Continue current medication and treatment plan. Await further input from Neurology later in the day. Cardiology has decided to put the patient on IV amiodarone and if does not revert to sinus rhythm, will consider doing a STONE and a cardioversion. It may be noted that the patient's left atrium is rather enlarged and the probability of him staying in sinus rhythm is not very high. Will do a mini-mental state examination on the patient. MMODL / IJN: [id number] /
[2017-10-16] MEDS: AMIODARONE 450 MG in DEXTROSE 5% IN WATER 250 ML IV SCH ×2 (01:11)
[2017-10-16 08:21] VITALS: RESP 16
[2017-10-16] MEDS ORDERED: IV FLUID CONTINUATION 950 ML IV ONE (08:25)
[2017-10-16] MEDS ORDERED: LIDOCAINE 1% INJ 10MG/ML (20 ML MDV) ONE (08:28)
[2017-10-16] MEDS ORDERED: PROPOFOL 10 MG/ML 20 ML VIAL IV ONE (08:28)
[2017-10-16] MEDS: BENZOCAINE SPRAY 1 CAN MUCOUS MEM ONE ×2 (08:40→08:44)
--- NOTE | 2017-10-16 09:14 | ECHOT ---
TRANSESOPHAGEAL ECHOCARDIOGRAM TRANSESOPHAGEAL ECHOCARDIOGRAM: Mr. Pierre is a 76-year-old gentleman who came to the hospital with recent onset of atrial fibrillation. Patient was tried on Rythmol as well as IV amiodarone but he persisted to be in atrial fibrillation. In view of that, the patient was advised transesophageal echocardiogram and cardioversion. PROCEDURE #1: Patient was given intravenous sedation with propofol by the nurse pest control service technician and transesophageal echocardiogram was performed without any complications. The left ventricular chamber is normal in size with normal left ventricular systolic function. There is a mild thickening of the mitral and aortic leaflets noted, tricuspid valve morphology is normal. There is mild to moderate mitral regurgitation noted. There is no evidence of thrombus in left atrium or atrial appendage. Mild amount of smoke is noted in the left atrium. There is no evidence of any significant aortic regurgitation. Interatrial septum is intact and there is no evidence of any PFO by saline contrast study. FINAL IMPRESSION: 1. Left ventricular systolic function is normal. 2. There is no evidence of thrombus in the left atrium or atrial appendage. A small amount of smoke is noted. 3. There is evidence of mild degree of mitral regurgitation. Interatrial septum is intact. RECOMMENDATIONS: Proceed with cardioversion. PROCEDURE #2: Elective cardioversion. Patient was given intravenous sedation by nurse pest control service technician and subsequently elective cardioversion was performed in synchronous mode with 200 joules. Patient converted to the normal sinus rhythm, and his vital signs remain stable. MMODL / IJN: [id number] /
[2017-10-16] MEDS: TRIAMTERENE-HCTZ 37.5-25MG 1 EACH CAP PO SCH (09:46)
[2017-10-16] MEDS: METOPROLOL SUCCINATE (ER) 50 MG TAB.ER.24H PO SCH (09:47)
[2017-10-16] MEDS: amLODIPine 10 MG TAB PO SCH (09:48)
[2017-10-16] MEDS: ALLOPURINOL 300 MG TAB PO SCH (09:48)
[2017-10-16] MEDS: ASPIRIN 81 MG PO SCH (09:48)
[2017-10-16] MEDS: APIXABAN 5 MG TAB PO SCH ×2 (09:48→21:16)
[2017-10-16] MEDS: LISINOPRIL 20 MG TAB PO SCH (09:48)
[2017-10-16] MEDS: NON-FORMULARY DRUG (Mirabegron [Myrbetriq] 25 MG) PO SCH (09:50)
[2017-10-16] MEDS ORDERED: SENNOSIDES 8.6 MG TAB PO STA (09:53)
[2017-10-16] MEDS: AMIODARONE 200 MG TAB PO SCH ×2 (11:03→21:16)
--- NOTE | 2017-10-16 15:35 | PN ---
PROGRESS NOTE DATE OF SERVICE: October 16, 2017. PRESENTING COMPLAINT: Increased forgetful. RECENT HISTORY: This patient admitted with increasing forgetfulness. Neuro workup was done. The patient also been in atrial fibrillation. This morning the patient did have a STONE. The thrombus was ruled out. Patient did undergo an successful cardioversion. Sitting up in a chair, comfortable. REVIEW OF SYSTEMS: Done for constitutional, cardiovascular, GI, pulmonary; relevant findings as above. CURRENT MEDICATIONS: Reviewed. EXAMINATION: Temperature 97.7, pulse 68, respirations 18, blood pressure 147/87, pulse ox 93% on room air. GENERAL APPEARANCE: Sitting up in a chair, comfortable. Eyes pupils are equal. Conjunctivae normal. HEENT external appearance of nose and ears normal. Oral cavity normal. Neck: JVD not raised. Mass not palpable. Respiratory effort normal. Lungs decreased breath sounds. Cardiovascular: First and second sounds normal. No edema. ABDOMEN: Soft. The liver and spleen not palpable. Psychiatry: Alert and oriented times three. Mood and affect normal. INVESTIGATIONS: No blood work from today. ASSESSMENT: 1. Acute metabolic encephalopathy, present on admission, cause unclear. 2. Essential hypertension. 3. Persistent atrial fibrillation, now status post cardioversion and sinus rhythm. 4. Right internal carotid artery stenosis 70%. 5. Possible mild cognitive impairment. PLAN: Continue current medication and treatment plan. Watch telemetry for another 24 hours. Will follow. MMHEATHERL / IJN: [id number] /
[2017-10-16] MEDS: SODIUM CHLORIDE 0.9% 1,000 ML IV SCH (16:25)
[2017-10-16] MEDS ORDERED: BISACODYL 5 MG TABLET.DR PO STA (16:34)
[2017-10-16 17:37] VITALS: TEMP 97.6
[2017-10-16] MEDS: ATORVASTATIN 20 MG TAB PO SCH (21:16)
[2017-10-17] MEDS: LISINOPRIL 20 MG TAB PO SCH (07:48)
[2017-10-17] MEDS: AMIODARONE 200 MG TAB PO SCH ×2 (07:48→15:30)
[2017-10-17] MEDS: METOPROLOL SUCCINATE (ER) 50 MG TAB.ER.24H PO SCH (07:48)
[2017-10-17] MEDS: ALLOPURINOL 300 MG TAB PO SCH (07:48)
[2017-10-17] MEDS: amLODIPine 10 MG TAB PO SCH (07:48)
[2017-10-17] MEDS: TRIAMTERENE-HCTZ 37.5-25MG 1 EACH CAP PO SCH (07:48)
[2017-10-17] MEDS: ASPIRIN 81 MG PO SCH (07:49)
[2017-10-17] MEDS: APIXABAN 5 MG TAB PO SCH (07:49)
[2017-10-17] MEDS: NON-FORMULARY DRUG (Mirabegron [Myrbetriq] 25 MG) PO SCH (07:50)
[2017-10-17 08:00] VITALS: PULSE 74
[2017-10-17 11:56] VITALS: BP 141/71
[2017-10-17] MEDS: SODIUM CHLORIDE 0.9% 1,000 ML IV SCH (13:38)
[2017-10-17] MEDS ORDERED: CEPHALEXIN 500 MG CAP PO STA (14:46)
--- NOTE | 2017-10-17 19:27 | DS ---
DISCHARGE SUMMARY DATE OF ADMISSION: 10/13/17. DATE OF DISCHARGE: 10/17/17. FINAL DIAGNOSES: 1. Acute metabolic encephalopathy, present on admission. 2. Essential hypertension. 3. Persistent atrial fibrillation, status post cardioversion and into sinus rhythm. 4. Right internal carotid artery stenosis 70%. 5. Possible mild cognitive impairment. 6. Acute cellulitis at the IV site in the right arm. HOSPITAL COURSE: This patient presented with some forgetfulness. The patient's MRI of the brain showed some chronic changes, some cerebral atrophy. EEG was within normal limits. CT angio 70% stenosis of the proximal right internal carotid artery. 2D echo, EF of 50-55%. No wall motion abnormality. The patient also had a STONE that did not show any thrombus, and cardioversion was done. Patient remained in sinus rhythm. The patient was noticed to have some cellulitis at the IV site for which patient was started on Keflex. The patient was cleared by Cardiology and Dr. Duran to be discharged. EXAM: Lungs: Fair entry. Cardiovascular: First and second sounds normal. Some redness in the right forearm at the IV site. DC MEDICATIONS: Allopurinol 300 mg a day, Lipitor 20 mg q.h.s., Flonase 1 spray each nostril daily, Toprol-XL 50 mg a day. Myrbetriq 25 mg p.o. daily, prostate 1 tab p.o. daily, Dyazide 37.5/125 one capsule p.o. daily, Cordarone 200 mg p.o. t.i.d., Eliquis 5 mg b.i.d., aspirin 81 mg a day, Keflex 500 mg p.o. q.8, Norvasc 10 mg p.o. daily. FOLLOWUP: Follow up with Dr. Gurrola on 10/27/17. Follow up with Dr. Duran in 10 days, follow Dr. VC Stein on 11/04/17. MMODL / IJN: [id number] /
== END 2017-10-17 16:00 | disposition home or self-care (01) | DRG 308 ==
LOC: EC 17:00 → 6SEL 21:31
PROVIDERS: ADMIT Hospitalist; ATTEND Hospitalist
PROC: B24BZZ4 Ultrasonography of Heart with Aorta, Transesophageal (ICD-10-PCS; 2017-10-16)
PROC: 5A2204Z Restoration of Cardiac Rhythm, Single (ICD-10-PCS; principal; 2017-10-16 09:40)
DX: I48.1 Persistent atrial fibrillation (principal); G93.41 Metabolic encephalopathy; L03.113 Cellulitis of right upper limb; T82.7XXA Infection and inflammatory reaction due to other cardiac and vascular devices, implants and grafts, initial encounter; E78.5 Hyperlipidemia, unspecified; I10 Essential (primary) hypertension; I65.21 Occlusion and stenosis of right carotid artery; I73.9 Peripheral vascular disease, unspecified; M10.9 Gout, unspecified; G31.84 Mild cognitive impairment of uncertain or unknown etiology; Z79.899 Other long term (current) drug therapy; Z87.891 Personal history of nicotine dependence; Z86.73 Personal history of transient ischemic attack (TIA), and cerebral infarction without residual deficits; Z82.49 Family history of ischemic heart disease and other diseases of the circulatory system; Z82.3 Family history of stroke
CPT/HCPCS: 36415; 70450; 70496; 70498; 70553; 71046; 80053; 82550; 82553; 84443; 84484; 85025; 85610; 85730; 92960; 93005; 93306; 93312; 93320; 93325; 93880; 94760; 95819

== ENCOUNTER 2018-05-07 10:29 | Emergency (ER) | payer MEDICARE, OTHER ==
[2018-05-07 10:59] VITALS: RESP 18
--- NOTE | 2018-05-07 11:39 | ED ---
Extremity Problem HPI - General Chief complaint: Extremity Problem,Nontraumatic Stated complaint: poss blood clot-sent by Time Seen by Provider: 05/07/18 11:15 Source: patient, RN notes reviewed, old records reviewed Mode of arrival: ambulatory - History of Present Illness Initial comments: Patient is a 77-year-old male presents emergency murmurs today with chief complaint of one week of left leg pain and swelling. He has a history of A. fib , currently in [facility]. He's had a history of TIAs. He denies any chest pain headaches or shortness of breath. Patient states that he went to his PCP for the leg pain and swelling yesterday. They called today due to increasing swelling and pain. They sent him here to get an ultrasound to rule out blood clot. Patient reports that he has had no trauma the leg. He denies any skin changes. - Related Data Home Medications Medication Instructions Recorded Confirmed Allopurinol [Zyloprim] 300 mg PO DAILY 10/13/17 05/07/18 Atorvastatin [Lipitor] 20 mg PO HS 10/13/17 05/07/18 Fluticasone Nasal [place] [Flonase 2 spray EA NOSTRIL BID 10/13/17 05/07/18 Nasal [place]] Metoprolol Succinate (ER) [Toprol 50 mg PO DAILY 10/13/17 05/07/18 XL] Triamterene/Hydrochlorothiazid 1 cap PO DAILY 10/13/17 05/07/18 [Dyazide 37.5-25 Capsule] ALPRAZolam [Xanax] 0.125 - 0.25 mg PO BID PRN 05/07/18 05/07/18 Amiodarone [Cordarone] 200 mg PO DAILY 05/07/18 05/07/18 Fish Oil/Dha/Epa [Fish Oil 1,200 2 cap PO DAILY 05/07/18 05/07/18 mg Fish Oil] Olmesartan Medoxomil 40 mg PO DAILY 05/07/18 05/07/18 Potassium Chloride ER [K-Dur 20] 20 meq PO DAILY 05/07/18 05/07/18 Tamsulosin HCl [Flomax] 0.4 mg PO DAILY 05/07/18 05/07/18 amLODIPine BESYLATE 5 mg PO DAILY 05/07/18 05/07/18 Previous Rx's Medication Instructions Recorded Apixaban [Eliquis] 5 mg PO BID #60 tab 10/17/17 amLODIPine [Norvasc] 10 mg PO DAILY #30 tab 10/17/17 Allergies Allergy/AdvReac Type Severity Reaction Status Date / Time No Known Allergies Allergy Verified 05/07/18 11:19 Review of Systems ROS Statement: Those systems with pertinent positive or pertinent negative responses have been documented in the HPI. ROS Other: All systems not noted in ROS Statement are negative. Past Medical History Past Medical History: Atrial Fibrillation, Hypertension History of Any Multi-Drug Resistant Organisms: None Reported Past Surgical History: No Surgical Hx Reported Past Anesthesia/Blood Transfusion Reactions: Unable to Obtain Past Psychological History: No Psychological Hx Reported Smoking Status: Never smoker Past Alcohol Use History: Occasional Past Drug Use History: None Reported - Past Family History Mother Family Medical History: CVA/TIA Father Family Medical History: Myocardial Infarction ([place]) General Exam - General Exam Comments Initial Comments: 77-year-old male. Alert and oriented. Patient appears in no significant distress. General appearance: alert, in no apparent distress Head exam: Present: atraumatic, normocephalic, normal inspection Eye exam: Present: normal appearance, PERRL, EOMI. Absent: scleral icterus, conjunctival injection, periorbital swelling ENT exam: Present: normal exam, mucous membranes moist Neck exam: Present: normal inspection. Absent: tenderness, meningismus, lymphadenopathy Respiratory exam: Present: normal lung sounds bilaterally. Absent: respiratory distress, wheezes, rales, rhonchi, stridor Cardiovascular Exam: Present: regular rate, normal rhythm, normal heart sounds. Absent: systolic murmur, diastolic murmur, rubs, gallop, clicks GI/Abdominal exam: Present: soft, normal bowel sounds. Absent: distended, tenderness, guarding, rebound, rigid Extremities exam: Present: normal inspection, full ROM, normal capillary refill. Absent: tenderness, pedal edema, joint swelling, calf tenderness Left Lower Leg exam: Present: normal inspection, full ROM Ankle exam: Present: normal inspection, full ROM Foot/Toe exam: Present: swelling (2+ swelling.). Absent: normal inspection Back exam: Present: normal inspection Course Vital Signs 05/07/18 10:53 Temperature 98.4 F Pulse Rate 55 L Respiratory 18 Rate Blood Pressure 154/67 O2 Sat by Pulse 95 Oximetry Medical Decision Making - Medical Decision Making 77-year-old male with left lower extremity swelling stepson week. Was sent in for ultrasound for DVT. He does have 2+ pedal edema. Compartment are soft. No overlying skin changes. There is no warmth. He does have some tenderness just generalized pain to the leg. At this time ultrasound was completed and negative for DVT. Discussed he may need to repeat an ultrasound in 2 days to reevaluate. X-ray shows degenerative disc changes. He states he feels like he may have pulled a muscle. She has no chest pain, shortness breath. Lungs are clear to auscultation. I discussed the Patient she is compression stockings. Legs up and elevated. Patient agrees to treatment plan will comply. Return parameters were discussed. - Radiology Data Radiology results: report reviewed Ultrasound is negative for DVT in the left lower extremity. No acute fracture dislocation and tib-fib. Moderate tricompartment degenerative change in the knee. There is mild spurring and ankle joint. There is diffuse and moderate subcu edema most prominent posterior mainly. Disposition Clinical Impression: Swelling of lower limb Disposition: HOME SELF-CARE Condition: Good Instructions: Leg Edema (ED) Additional Instructions: Patient is advised to keep the leg up and elevated. Use compression stockings. A temperature medication such as Motrin and Tylenol. Patient advised to keep the legs up of the heart with pillows while sleeping. Patient may need to repeat ultrasound in 2-3 days if swelling contains to persist. Is patient prescribed a controlled substance at d/c from ED?: No Referrals: Julio Gurrola MD [Primary Care Provider] - 1-2 days Time of Disposition: 13:51
--- NOTE | 2018-05-07 12:24 | US ---
EXAMINATION TYPE: US venous doppler duplex LE LT DATE OF EXAM: 05/07/2018 12:18 PM COMPARISON: NONE CLINICAL HISTORY: Pain. Left leg pain SIDE PERFORMED: Left TECHNIQUE: The lower extremity deep venous system is examined utilizing real time linear array sonog [employer] with graded compression, doppler sonography and color-flow sonography. VESSELS IMAGED: External Iliac Vein (EIV) Common Femoral Vein Deep Femoral Vein Greater Saphenous Vein * Femoral Vein Popliteal Vein Small Saphenous Vein * Proximal Calf Veins (* superficial vessels) Left Leg: Negative for DVT Grayscale, color doppler, spectral doppler imaging performed of the deep veins of the left lower extr emity. There is normal flow, compressibility, vascular waveforms. IMPRESSION: No ultrasound evidence for acute DVT in the left lower extremity.
--- NOTE | 2018-05-07 13:42 | XR ---
EXAMINATION TYPE: XR tibia fibula LT DATE OF EXAM: 05/07/2018 CLINICAL HISTORY: Pain mid calf. TECHNIQUE: Two views of the left leg are obtained. COMPARISON: None. FINDINGS: There is no acute fracture or dislocation seen in the left tibia or fibula. Mild to modera te tricompartment degenerative changes in the knee with anterior patellar spurring is present. . Ther e is mild to moderate spurring at ankle joint. There is mild to moderate diffuse subcutaneous edema m ost prominent posteriorly and medially. IMPRESSION: As above .
[2018-05-07 14:10] VITALS: BP 160/89; PULSE 57; TEMP 97.3
== END 2018-05-07 14:10 | disposition home or self-care (01) ==
LOC: EC 10:29
DX: M17.12 Unilateral primary osteoarthritis, left knee (principal); I48.91 Unspecified atrial fibrillation; I10 Essential (primary) hypertension; Z86.73 Personal history of transient ischemic attack (TIA), and cerebral infarction without residual deficits; Z79.899 Other long term (current) drug therapy
CPT/HCPCS: 99284

== ENCOUNTER 2018-06-29 00:26 | Emergency (ER) | payer MEDICARE, OTHER ==
[2018-06-29] MEDS ORDERED: hydrALAZINE HCL 20 MG/ML 1 ML VIAL IM STA (01:07)
--- NOTE | 2018-06-29 01:11 | ED ---
General Adult HPI - General Chief complaint: Recheck/Abnormal Lab/Rx Stated complaint: High blood pressure Source: patient Mode of arrival: ambulatory Limitations: no limitations - Related Data Home Medications Medication Instructions Recorded Confirmed Allopurinol [Zyloprim] 300 mg PO DAILY 10/13/17 05/07/18 Atorvastatin [Lipitor] 20 mg PO HS 10/13/17 05/07/18 Fluticasone Nasal [place] [Flonase 2 spray EA NOSTRIL BID 10/13/17 05/07/18 Nasal [place]] Metoprolol Succinate (ER) [Toprol 50 mg PO DAILY 10/13/17 05/07/18 XL] Triamterene/Hydrochlorothiazid 1 cap PO DAILY 10/13/17 05/07/18 [Dyazide 37.5-25 Capsule] ALPRAZolam [Xanax] 0.125 - 0.25 mg PO BID PRN 05/07/18 05/07/18 Amiodarone [Cordarone] 200 mg PO DAILY 05/07/18 05/07/18 Fish Oil/Dha/Epa [Fish Oil 1,200 2 cap PO DAILY 05/07/18 05/07/18 mg Fish Oil] Olmesartan Medoxomil 40 mg PO DAILY 05/07/18 05/07/18 Potassium Chloride ER [K-Dur 20] 20 meq PO DAILY 05/07/18 05/07/18 Tamsulosin HCl [Flomax] 0.4 mg PO DAILY 05/07/18 05/07/18 amLODIPine BESYLATE 5 mg PO DAILY 05/07/18 05/07/18 Previous Rx's Medication Instructions Recorded Apixaban [Eliquis] 5 mg PO BID #60 tab 10/17/17 amLODIPine [Norvasc] 10 mg PO DAILY #30 tab 10/17/17 Allergies Allergy/AdvReac Type Severity Reaction Status Date / Time No Known Allergies Allergy Verified 06/29/18 00:33 Review of Systems ROS Statement: Those systems with pertinent positive or pertinent negative responses have been documented in the HPI. ROS Other: All systems not noted in ROS Statement are negative. Past Medical History Past Medical History: Atrial Fibrillation, Hypertension History of Any Multi-Drug Resistant Organisms: None Reported Past Surgical History: No Surgical Hx Reported Past Anesthesia/Blood Transfusion Reactions: Unable to Obtain Past Psychological History: No Psychological Hx Reported Smoking Status: Never smoker Past Alcohol Use History: Occasional Past Drug Use History: None Reported - Past Family History Mother Family Medical History: CVA/TIA Father Family Medical History: Myocardial Infarction ([place]) General Exam Limitations: no limitations Course Vital Signs 06/29/18 06/29/18 00:30 02:33 Temperature 97.7 F Pulse Rate 85 70 Respiratory 18 16 Rate Blood Pressure 214/101 184/92 O2 Sat by Pulse 97 97 Oximetry Medical Decision Making - Medical Decision Making Dictation was produced using [employer] dictation software. please excuse any grammatical, word or spelling errors. Chief Complaint: 77-year-old male past medical history of H fibrillation and hypertension presents with elevated blood pressure. History of Present Illness: She was at home today. He checks his blood pressure intermittently. Several months ago patient had atrial fibrillation. He had STONE and cardioversion. Since then he was instructed by his primary care doctor to monitor his blood pressure at home. Patient takes blood pressure every other day. Patient was watching TV [employer] football playoff games today and had multiple alcoholic beverages. He checked his blood pressure after that and saw that it was abnormally high. Patient does not have any symptoms at this time. Denies headache, no symptoms. No chest pain or shortness of breath. Patient does take medications for his blood pressure. Patient was concerned came to the emergency department. The ROS documented in this emergency department record has been reviewed and confirmed by me. Those systems with pertinent positive or negative responses have been documented in the HPI. All other systems are other negative and/or noncontributory. PHYSICAL EXAM: General Impression: Alert and oriented x3, not in acute distress HEENT: Normocephalic atraumatic, extra-ocular movements intact, pupils equal and reactive to light bilaterally, mucous membranes moist. Cardiovascular: Heart regular rate and rhythm, S1&S2 audible, no murmurs, rubs or gallops Chest: Lungs clear to auscultation bilaterally, no rhonchi, no wheeze, no rales Abdomen: Bowel sounds present, abdomen soft, non-tender, non-distended, no organomegaly Musculoskeletal: Pulses present and equal in all extremities, no peripheral edema Motor: Power 5/5 bilaterally, no focal deficits noted Neurological: CN II-XII grossly intact, no focal motor or sensory deficits noted Skin: Intact with no visualized rashes Psych: Normal affect and mood ED course: 77-year-old male presents with clinical presentation consistent with asymptomatic hypertension. All signs upon arrival shows blood pressure 214/ 101. Patient does not have any symptoms at this time. Physical examination is unremarkable. EKG is unremarkable. Patient does not drink regularly. Patient' s elevated blood pressures likely secondary to alcohol ingestion. Patient given some IM hydralazine. EKG was obtained. There is findings of prolonged QT. QTC is 511. Laboratory evaluation obtained. Patient does have a potassium of 3.3. Discussed patient case with Dr. Benton who recommends providing potassium correction and recheck an EKG. EKG was performed showing correctional QT. It is now 484. Patient repeat vitals are improved. Patient clear for discharge. He is told to recheck his blood pressure tomorrow. Advised to follow-up with primary care physician for outpatient management of hypertension. - Lab Data Result diagrams: 06/29/18 00:55 Lab Results 06/29/18 Range/Units 00:55 Sodium 143 (137-145) mmol/L Potassium 3.3 L (3.5-5.1) mmol/L Chloride 104 (98-107) mmol/L Carbon Dioxide 29 (22-30) mmol/L Anion Gap 10 mmol/L BUN 18 (9-20) mg/dL Creatinine 1.11 (0.66-1.25) mg/dL Est GFR (CKD-EPI)AfAm 73 (>60 ml/min/1.73 sqM) Est GFR (CKD-EPI)NonAf 63 (>60 ml/min/1.73 sqM) Glucose 116 H (74-99) mg/dL Calcium 9.8 (8.4-10.2) mg/dL Magnesium 2.1 (1.6-2.3) mg/dL Disposition Clinical Impression: Hypokalemia, Hypertension Disposition: HOME SELF-CARE Condition: Good Instructions: Hypertension in the Older Adult (ED) Is patient prescribed a controlled substance at d/c from ED?: No Referrals: Julio Gurrola MD [Primary Care Provider] - 1-2 days Time of Disposition: 03:26
[2018-06-29 01:38] LABS: Potassium 3.3 mmol/L (3.5-5.1)
[2018-06-29 01:41] LABS: Calcium 9.8 mg/dL (8.4-10.2); Magnesium 2.1 mg/dL (1.6-2.3)
[2018-06-29] MEDS ORDERED: POTASSIUM CHLORIDE ER 20 MEQ TAB.ER PO STA (01:48)
[2018-06-29] MEDS ORDERED: POTASSIUM CHLORIDE 20 MEQ in WATER FOR INJECTION 1 100ML.BAG IVPB STA (02:09)
[2018-06-29 04:20] VITALS: BP 152/94; PULSE 87; RESP 18; TEMP 98
== END 2018-06-29 04:19 | disposition home or self-care (01) ==
LOC: EC 00:26
DX: E87.6 Hypokalemia (principal); I10 Essential (primary) hypertension; I45.81 Long QT syndrome; I48.91 Unspecified atrial fibrillation; Z79.899 Other long term (current) drug therapy
CPT/HCPCS: 36415; 93005; 80048; 83735; 99283; 96365; 96366; 96372; J0360; J3480

== ENCOUNTER 2018-07-01 10:17 | Inpatient (IN) | payer MEDICARE, OTHER ==
[2018-07-01] MEDS ORDERED: SODIUM CHLORIDE 0.9% 500 ML 500 ML IV STA (11:12)
[2018-07-01] MEDS ORDERED: ONDANSETRON 4 MG/2 ML VIAL IVP STA (11:12)
[2018-07-01] MEDS ORDERED: MECLIZINE 25 MG TAB PO STA (11:12)
[2018-07-01] MEDS ORDERED: DIAZEPAM 5 MG/ML 2 ML INJ IVP STA (11:12)
--- NOTE | 2018-07-01 11:25 | ED ---
General Adult HPI - General Chief complaint: Dizziness Stated complaint: Nausea, vomiting Time Seen by Provider: 07/01/18 10:20 Source: patient, EMS, RN notes reviewed Mode of arrival: EMS Limitations: no limitations - History of Present Illness Initial comments: This is a 77-year-old male presents emergency Department for being off balance. Patient states last night before he went to bed he tried to walk down the hallway is very off balance and he thought he might fall over. Patient use a multivitamin went to bed. Patient states when he got up this morning he continued to be off balance when he walks. Patient states after he was off balance and started becoming very nauseated and then even was sweaty. Patient denies any chest pain palpitations or difficulty breathing. Patient states movement does seem to make the symptoms worse. Family states they've noticed a couple times in the recent past where he was off balance and fell over 2 of those times occurred when he was on a cruise ship so they assumed the slow movement of the ship made it worse. Patient's family also states that he's been intermittently confused lately even this morning when they asked her who the president was he didn't know later on he didn't know and then again they asked him lately and he doesn't know again. Patient states that been new lately and these forgetful episode seemed to be worse at night. Patient denies any recent fever chills or cough. Patient denies any abdominal pain. Patient does states he still is nauseous - Related Data Home Medications Medication Instructions Recorded Confirmed Allopurinol [Zyloprim] 300 mg PO DAILY 10/13/17 05/07/18 Atorvastatin [Lipitor] 20 mg PO HS 10/13/17 05/07/18 Fluticasone Nasal [place] [Flonase 2 spray EA NOSTRIL BID 10/13/17 05/07/18 Nasal [place]] Metoprolol Succinate (ER) [Toprol 50 mg PO DAILY 10/13/17 05/07/18 XL] Triamterene/Hydrochlorothiazid 1 cap PO DAILY 10/13/17 05/07/18 [Dyazide 37.5-25 Capsule] ALPRAZolam [Xanax] 0.125 - 0.25 mg PO BID PRN 05/07/18 05/07/18 Amiodarone [Cordarone] 200 mg PO DAILY 05/07/18 05/07/18 Fish Oil/Dha/Epa [Fish Oil 1,200 2 cap PO DAILY 05/07/18 05/07/18 mg Fish Oil] Olmesartan Medoxomil 40 mg PO DAILY 05/07/18 05/07/18 Potassium Chloride ER [K-Dur 20] 20 meq PO DAILY 05/07/18 05/07/18 Tamsulosin HCl [Flomax] 0.4 mg PO DAILY 05/07/18 05/07/18 amLODIPine BESYLATE 5 mg PO DAILY 05/07/18 05/07/18 Previous Rx's Medication Instructions Recorded Apixaban [Eliquis] 5 mg PO BID #60 tab 10/17/17 amLODIPine [Norvasc] 10 mg PO DAILY #30 tab 10/17/17 Allergies Allergy/AdvReac Type Severity Reaction Status Date / Time No Known Allergies Allergy Verified 07/01/18 10:57 Review of Systems ROS Statement: Those systems with pertinent positive or pertinent negative responses have been documented in the HPI. ROS Other: All systems not noted in ROS Statement are negative. Past Medical History Past Medical History: Atrial Fibrillation, Hypertension History of Any Multi-Drug Resistant Organisms: None Reported Past Surgical History: No Surgical Hx Reported Past Anesthesia/Blood Transfusion Reactions: Unable to Obtain Past Psychological History: No Psychological Hx Reported Smoking Status: Never smoker Past Alcohol Use History: Occasional Past Drug Use History: None Reported - Past Family History Mother Family Medical History: CVA/TIA Father Family Medical History: Myocardial Infarction ([place]) General Exam - General Exam Comments Initial Comments: GENERAL: Patient is well-developed and well-nourished. Patient is nontoxic and well- hydrated and is in mild distress. ENT: Neck is soft and supple. No significant lymphadenopathy is noted. Oropharynx is clear. Moist mucous membranes. Neck has full range of motion without eliciting any pain. EYES: The sclera were anicteric and conjunctiva were pink and moist. Extraocular movements were intact and pupils were equal round and reactive to light. Eyelids were unremarkable. PULMONARY: Unlabored respirations. Good breath sounds bilaterally. No audible rales rhonchi or wheezing was noted. CARDIOVASCULAR: There is a regular rate and rhythm without any murmurs gallops or rubs. Femoral pulses are equal bilaterally ABDOMEN: Soft and nontender with normal bowel sounds. No palpable organomegaly was noted. There is no palpable pulsatile mass. SKIN: Skin is clear with no lesions or rashes and otherwise unremarkable. NEUROLOGIC: Patient is alert and oriented x3. Cranial nerves II through XII are grossly intact. Motor and sensory are also intact. Normal speech, volume and content. Symmetrical smile. MUSCULOSKELETAL: Normal extremities with adequate strength and full range of motion. No lower extremity swelling or edema. No calf tenderness. LYMPHATICS: No significant lymphadenopathy is noted PSYCHIATRIC: Normal psychiatric evaluation. Limitations: no limitations Course Vital Signs 07/01/18 07/01/18 10:20 13:03 Temperature 96.9 F L Pulse Rate 56 L 59 L Respiratory 18 16 Rate Blood Pressure 186/84 179/90 O2 Sat by Pulse 97 97 Oximetry Medical Decision Making - Medical Decision Making EKG shows sinus bradycardia 57 bpm OH interval is 2:30 QRS is 96 QT interval 424 QTC is 412. Patient's EKG shows no ST segment elevation or depression or T wave abnormalities are noted. Chest x-ray showed no acute abnormality. Computed tomography scan showed no acute normalities. Daughter came back to the room and went back to talk with her she stated that he did vomit earlier and there was some blood in the vomit as well. She also states this is been an ongoing problem with his dizziness and is getting worse and that he was also altered mentally did not know the high school library media specialist which she would normally know. She states that this waxes and wanes quite quickly and currently he is alert and oriented [address] Bush agreed to admit the patient admitted the patient wrote admitting orders. - Lab Data Result diagrams: 07/01/18 10:58 07/01/18 10:58 Lab Results 07/01/18 07/01/18 07/01/18 Range/Units 10:58 10:58 10:58 WBC 6.0 (3.8-10.6) k/uL RBC 4.85 (4.30-5.90) m/uL Hgb 13.9 (13.0-17.5) gm/dL Hct 42.4 (39.0-53.0) % MCV 87.5 (80.0-100.0) fL MCH 28.7 (25.0-35.0) pg MCHC 32.7 (31.0-37.0) g/dL RDW 13.7 (11.5-15.5) % Plt Count 146 L (150-450) k/uL Neutrophils % 84 % Lymphocytes % 8 % Monocytes % 5 % Eosinophils % 1 % Basophils % 1 % Neutrophils # 5.0 (1.3-7.7) k/uL Lymphocytes # 0.5 L (1.0-4.8) k/uL Monocytes # 0.3 (0-1.0) k/uL Eosinophils # 0.1 (0-0.7) k/uL Basophils # 0.0 (0-0.2) k/uL PT (9.0-12.0) sec INR (<1.2) APTT (22.0-30.0) sec Sodium 142 (137-145) mmol/L Potassium 3.8 (3.5-5.1) mmol/L Chloride 107 (98-107) mmol/L Carbon Dioxide 27 (22-30) mmol/L Anion Gap 8 mmol/L BUN 23 H (9-20) mg/dL Creatinine 0.95 (0.66-1.25) mg/dL Est GFR (CKD-EPI)AfAm 88 (>60 ml/min/1.73 sqM) Est GFR (CKD-EPI)NonAf 76 (>60 ml/min/1.73 sqM) Glucose 153 H (74-99) mg/dL Calcium 9.4 (8.4-10.2) mg/dL Magnesium 2.1 (1.6-2.3) mg/dL Total Bilirubin 1.3 (0.2-1.3) mg/dL AST 39 (17-59) U/L ALT 65 (21-72) U/L Alkaline Phosphatase 62 (38-126) U/L Total Creatine Kinase 112 (55-170) U/L CK-MB (CK-2) 0.9 (0.0-2.4) ng/mL CK-MB (CK-2) Rel Index 0.8 Troponin I <0.012 (0.000-0.034) ng/mL Total Protein 7.5 (6.3-8.2) g/dL Albumin 4.5 (3.5-5.0) g/dL Urine Color Urine Appearance (Clear) Urine pH (5.0-8.0) Ur Specific [place] (1.001-1.035) Urine Protein (Negative) Urine Glucose (UA) (Negative) Urine Ketones (Negative) Urine Blood (Negative) Urine Nitrite (Negative) Urine Bilirubin (Negative) Urine Urobilinogen (<2.0) mg/dL Ur Leukocyte Esterase (Negative) Urine RBC (0-5) /hpf Urine WBC (0-5) /hpf Urine Mucus (None) /hpf 07/01/18 07/01/18 Range/Units 10:58 12:29 WBC (3.8-10.6) k/uL RBC (4.30-5.90) m/uL Hgb (13.0-17.5) gm/dL Hct (39.0-53.0) % MCV (80.0-100.0) fL MCH (25.0-35.0) pg MCHC (31.0-37.0) g/dL RDW (11.5-15.5) % Plt Count (150-450) k/uL Neutrophils % % Lymphocytes % % Monocytes % % Eosinophils % % Basophils % % Neutrophils # (1.3-7.7) k/uL Lymphocytes # (1.0-4.8) k/uL Monocytes # (0-1.0) k/uL Eosinophils # (0-0.7) k/uL Basophils # (0-0.2) k/uL PT 11.2 (9.0-12.0) sec INR 1.1 (<1.2) APTT 22.8 (22.0-30.0) sec Sodium (137-145) mmol/L Potassium (3.5-5.1) mmol/L Chloride (98-107) mmol/L Carbon Dioxide (22-30) mmol/L Anion Gap mmol/L BUN (9-20) mg/dL Creatinine (0.66-1.25) mg/dL Est GFR (CKD-EPI)AfAm (>60 ml/min/1.73 sqM) Est GFR (CKD-EPI)NonAf (>60 ml/min/1.73 sqM) Glucose (74-99) mg/dL Calcium (8.4-10.2) mg/dL Magnesium (1.6-2.3) mg/dL Total Bilirubin (0.2-1.3) mg/dL AST (17-59) U/L ALT (21-72) U/L Alkaline Phosphatase (38-126) U/L Total Creatine Kinase (55-170) U/L CK-MB (CK-2) (0.0-2.4) ng/mL CK-MB (CK-2) Rel Index Troponin I (0.000-0.034) ng/mL Total Protein (6.3-8.2) g/dL Albumin (3.5-5.0) g/dL Urine Color Yellow Urine Appearance Clear (Clear) Urine pH 6.0 (5.0-8.0) Ur Specific [place] 1.018 (1.001-1.035) Urine Protein 2+ H (Negative) Urine Glucose (UA) Negative (Negative) Urine Ketones 2+ H (Negative) Urine Blood Negative (Negative) Urine Nitrite Negative (Negative) Urine Bilirubin Negative (Negative) Urine Urobilinogen 2.0 (<2.0) mg/dL Ur Leukocyte Esterase Negative (Negative) Urine RBC 2 (0-5) /hpf Urine WBC 1 (0-5) /hpf Urine Mucus Rare H (None) /hpf Disposition Clinical Impression: Hematemesis, Vertigo, Altered mental status Disposition: ADMITTED IP TO THIS HOSP Referrals: Julio Gurrola MD [Primary Care Provider] - 1-2 days Time of Disposition: 13:40
--- NOTE | 2018-07-01 11:45 | XR ---
EXAMINATION TYPE: XR chest 2V DATE OF EXAM: 07/01/2018 COMPARISON: 10/13/2017 HISTORY: 77-year-old male with chest pain TECHNIQUE: AP and lateral views FINDINGS: Heart mildly enlarged. Mild interstitial prominence. Stable opacity at the cardiac apex suggesting ep icardial fat pad. The mild patchy posterior basilar opacity on the lateral view. IMPRESSION: 1. Mild cardiomegaly and chronic changes. 2. Some patchy posterior basilar atelectasis or early infiltrate on the lateral view. The former is f avored.
--- NOTE | 2018-07-01 11:47 | CT ---
EXAMINATION TYPE: CT brain wo con DATE OF EXAM: 07/01/2018 COMPARISON: 10/13/2017 HISTORY: Nausea and vomiting CT DLP: 1140.[address] of the brain was performed. The ventricles, basal cisterns and sulci overlying the cerebral convexities demonstrate mild enlargem ent. There is no evidence for intracranial hemorrhage or sulcal effacement. There is decreased attenuation about the periventricular white matter and deep white matter of both c erebral hemispheres, compatible with chronic small vessel ischemia. Differential diagnosis does inclu de demyelination. No mass effects are seen.No midline shift. Osseous calvarium is intact. If symptoms persist consider MRI. IMPRESSION: 1. Age related atrophic and chronic small vessel ischemic change without acute intracranial process s een at this time.
[2018-07-01 11:52] LABS: Basophils % (A) 1 %; Eosinophils # (A) 0.1 k/uL (0-0.7); Eosinophils % (A) 1 %; HCT 42.4 % (39.0-53.0); HGB 13.9 gm/dL (13.0-17.5); Lymphocytes # (A) 0.5 k/uL (1.0-4.8); Lymphocytes % (A) 8 %; MCH 28.7 pg (25.0-35.0); MCHC 32.7 g/dL (31.0-37.0); MCV 87.5 fL (80.0-100.0); Mean Platelet Volume 7.6; Monocytes # (A) 0.3 k/uL (0-1.0); Monocytes % (A) 5 %; Neutrophils % (A) 84 %; Platelet Count 146 k/uL (150-450); RBC 4.85 m/uL (4.30-5.90); RDW 13.7 % (11.5-15.5)
[2018-07-01 12:00] LABS: Albumin 4.5 g/dL (3.5-5.0); Calcium 9.4 mg/dL (8.4-10.2); Magnesium 2.1 mg/dL (1.6-2.3); Total Bilirubin 1.3 mg/dL (0.2-1.3); Total Protein 7.5 g/dL (6.3-8.2)
[2018-07-01 12:06] LABS: Potassium 3.8 mmol/L (3.5-5.1)
[2018-07-01 12:11] LABS: Creatine Kinase 112 U/L (55-170)
[2018-07-01 12:19] LABS: INR 1.1 (<1.2); Partial Thromboplastin Time 22.8 sec (22.0-30.0); Prothrombin Time 11.2 sec (9.0-12.0)
[2018-07-01 12:25] LABS: Creatine Kinase MB 0.9 ng/mL (0.0-2.4); Troponin I <0.012 ng/mL (0.000-0.034)
[2018-07-01 12:52] LABS: Appearance,Urine Clear (Clear); Bilirubin,Urine Negative (Negative); Blood,Urine Negative (Negative); Color,Urine Yellow; Glucose,Urine (UA) Negative (Negative); Ketones,Urine 2+ (Negative); Leukocyte Esterase,Urine Negative (Negative); Mucus,Urine Rare /hpf; Nitrite,Urine Negative (Negative); Protein,Urine 2+ (Negative); RBC,Urine 2 /hpf (0-5); Specific Gravity,Urine 1.018 (1.001-1.035); WBC,Urine 1 /hpf (0-5)
[2018-07-01] MEDS ORDERED: SODIUM CHLORIDE 0.9% 1,000 ML IV ONE (13:44)
[2018-07-01] MEDS ORDERED: MECLIZINE 25 MG TAB PO PRN (13:50)
[2018-07-01] MEDS ORDERED: hydrALAZINE HCL 20 MG/ML 1 ML VIAL IVP STA (14:29)
[2018-07-01] MEDS ORDERED: LOSARTAN 50 MG TAB PO SCH (16:45)
[2018-07-01] MEDS ORDERED: amLODIPine 5 MG TAB PO SCH (16:45)
[2018-07-01] MEDS ORDERED: TRIAMTERENE-HCTZ 37.5-25MG 1 EACH CAP PO SCH (16:45)
[2018-07-01] MEDS: ALLOPURINOL 300 MG TAB PO SCH (17:26)
[2018-07-01] MEDS: AMIODARONE 200 MG TAB PO SCH (17:26)
[2018-07-01] MEDS: SODIUM CHLORIDE 0.9% 1,000 ML IV SCH (17:27)
[2018-07-01] MEDS: TAMSULOSIN 0.4 MG CAP.ER.24H PO SCH (17:27)
[2018-07-01 20:47] LABS: Basophils % (A) 1 %; Eosinophils # (A) 0.1 k/uL (0-0.7); Eosinophils % (A) 1 %; HCT 41.9 % (39.0-53.0); HGB 14.2 gm/dL (13.0-17.5); Lymphocytes # (A) 1.1 k/uL (1.0-4.8); Lymphocytes % (A) 17 %; MCH 30.2 pg (25.0-35.0); MCHC 33.9 g/dL (31.0-37.0); MCV 88.9 fL (80.0-100.0); Mean Platelet Volume 8.4; Monocytes # (A) 0.5 k/uL (0-1.0); Monocytes % (A) 8 %; Neutrophils % (A) 73 %; Platelet Count 149 k/uL (150-450); RBC 4.71 m/uL (4.30-5.90); RDW 13.8 % (11.5-15.5); WBC 6.8 k/uL (3.8-10.6)
[2018-07-01] MEDS ORDERED: ATORVASTATIN 20 MG TAB PO SCH (21:00)
[2018-07-01] MEDS: APIXABAN 5 MG TAB PO SCH (21:37)
[2018-07-01] MEDS ORDERED: amLODIPine 5 MG TAB PO STA (22:38)
[2018-07-01] MEDS ORDERED: LISINOPRIL-HCTZ 10-12.5 MG 1 EACH TAB PO SCH (22:45)
--- NOTE | 2018-07-02 00:02 | HP ---
HISTORY AND PHYSICAL DATE OF ADMISSION AND SERVICE: 07/01/2018 PRESENTING COMPLAINT: Dizziness. HISTORY OF PRESENTING COMPLAINT: This is a pleasant 77-year-old patient who follows with Dr. Gurrola. Chronic stable medical conditions include atrial fibrillation, hyperlipidemia, osteoarthritis. Patient presents with unsteadiness of the gait and blood pressure running high. The family had left when I saw the patient but did inform the nurse that he has been having some neurological symptoms since around [place], when they went on a cruise, and they thought they were because of being out on the sea; they felt his symptoms were from that. Patient states that his blood pressure has been running quite high at home, patient has been having some flushed feeling. The patient also noticed that his walking is somewhat unsteady, going from one side to the other side. It happened 2 or 3 times yesterday. He also had some perspiration. He thinks he occasionally gets blurring of the vision. Denies any focal weakness. The patient also noticed that he has been becoming forgetful. Patient's blood pressure has been running high. Patient was here in the ER a couple of days ago with a high blood pressure. Patient's telemetry did report patient being in and out of atrial fibrillation, which he has had in the past and for which patient is already on Eliquis. The patient did have a slight cough today and maybe brought up a very tiny amount of blood, maybe dime-sized. Hence patient was admitted to the hospital. Also patient had a slight headache earlier which is better now. REVIEW OF SYSTEMS: CONSTITUTIONAL: Tired. HEENT: A bit flushed. RESPIRATORY: None. CARDIOVASCULAR: No chest pain. GASTROINTESTINAL: None. GENITOURINARY: None. MUSCULOSKELETAL: Arthritic pain in many joints. DERMATOLOGICAL: None. HEMATOLOGICAL: None. LYMPHATICS: None. PSYCHIATRY: Has been starting to get forgetful. NEUROLOGICAL: As above. PAST MEDICAL HISTORY: 1. Atrial fibrillation. 2. Questionable TIA. 3. Hyperlipidemia. 4. Hypertension. 5. Memory impairment. 6. Osteoarthritis. 7. Prostate disorder. 8. Gout. 9. Arthritis. 10.Right carotid stenosis 70%. SURGICAL HISTORY: 1. STONE. 2. Cardioversion. SOCIAL HISTORY: Lives by himself. Smoked about 3 packs a day for 20 years. Stopped in 1978, FAMILY HISTORY: CVA. HOME MEDICATIONS: 1. Olmesartan 40 mg p.o. daily. 2. Amlodipine 5 mg p.o. daily. 3. Dyazide 37.5/25 one capsule p.o. daily. 4. Flomax 0.4 mg p.o. daily. 5. Potassium 20 mEq p.o. daily. 6. Lipitor 20 mg at bedtime. 7. Eliquis 5 mg p.o. b.i.d. 8. Cordarone 200 mg p.o. daily. 9. Allopurinol 300 mg p.o. daily. 10.Toprol-XL 50 mg p.o. daily. ALLERGIES: NONE. PHYSICAL EXAMINATION: VITAL SIGNS ON PRESENTATION: Temperature 97.7, pulse 55, respiration 18, blood pressure 214/101, pulse ox 97% on room air. GENERAL APPEARANCE: Well built; BMI 31.6. Lying in bed, not in distress. EYES: Pupils equal. Conjunctivae normal. HEENT: External appearance of nose and ears normal. Oral cavity normal. NECK: JVD not raised. Mass not palpable. RESPIRATORY: Effort normal. LUNGS: Fair air entry. CARDIOVASCULAR: First and second sounds normal. No edema. ABDOMEN: Soft, non-tender. Liver and spleen not palpable. LYMPHATIC: No lymph node palpable in neck or axillae. PSYCHIATRY: Patient is able to answer questions mostly, but sometimes slow. NEUROLOGICAL: Questionable right-gaze nystagmus. Some dysdiadochokinesia, questionable past-pointing. Power and sensation grossly intact. INVESTIGATIONS: White count 6.8, hemoglobin 14.2, platelets 149. Potassium 3.8, BUN 23, creatinine 0.95. EKG tracing, personally reviewed by me, shows normal sinus rhythm, nonspecific T-wave changes. CT scan of the brain shows age-related changes. Chest x-ray film, personally reviewed by me, shows some cardiomegaly, questionable venous prominence. ASSESSMENT: 1. This is a patient who, according to the family, has been having symptoms since [place]; that is close to 5 weeks; has been unsteady on his feet, a bit more forgetful, with some blurriness of vision. Blood pressure has been running high at home, uncontrolled. Now presents with some possible findings of cerebellar ischemia. 2. Intermittent/paroxysmal atrial fibrillation with prior history of cardioversion, for which patient is on Eliquis. 3. Hyperlipidemia. 4. Primary osteoarthritis. 5. Obesity; body mass index of 31.6. 6. Mild cognitive impairment. 7. Right carotid stenosis of 30%. PLAN: Will do an MRI of the brain with and without contrast, carotid Doppler, 2D echo. Will get a cardiology consultation. For blood pressure, will increase the amlodipine to 10 mg a day, cut back on the fluids started in the ER. Patient only had a very small amount of bloody emesis when he coughed up, which was very minimal. I am not sure there is much significance to the same. Will do neuro checks, move the patient to telemetry floor. Currently no family is at the bedside. MMODL / IJN: [id number] /
[2018-07-02] MEDS: TAMSULOSIN 0.4 MG CAP.ER.24H PO SCH (08:15)
[2018-07-02] MEDS: METOPROLOL SUCCINATE (ER) 50 MG TAB.ER.24H PO SCH (08:15)
[2018-07-02] MEDS: POTASSIUM CHLORIDE ER 20 MEQ TAB.ER PO SCH (08:15)
[2018-07-02] MEDS: AMIODARONE 200 MG TAB PO SCH (08:15)
[2018-07-02] MEDS: APIXABAN 5 MG TAB PO SCH ×2 (08:15→20:05)
[2018-07-02] MEDS: amLODIPine 10 MG TAB PO SCH (08:15)
[2018-07-02] MEDS: ALLOPURINOL 300 MG TAB PO SCH (08:15)
--- NOTE | 2018-07-02 09:53 | ECHOF ---
Referral Reason:af MEASUREMENTS -------- HEIGHT: 152.4 cm WEIGHT: 108.0 kg BP: 144/74 RVIDd: 2.8 cm (< 3.3) IVSd: 1.3 cm (0.6 - 1.1) LVIDd: 5.3 cm (3.9 - 5.3) LVPWd: 1.1 cm (0.6 - 1.1) IVSs: 1.5 cm LVIDs: 3.4 cm LVPWs: 1.6 cm LAESV Index (A-L): 30.12 ml/m MV EXCURSION: 17.961 mm (> 18.000) MV EF SLOPE: 93 mm/s (70 - 150) EPSS: 0.5 cm MV E Thor: 0.57 m/s MV DecT: 286 ms MV A Thor: 0.71 m/s MV E/A Ratio: 0.81 RAP: 5.00 mmHg RVSP: 10.02 mmHg FINDINGS -------- Sinus rhythm. This was a technically adequate study. The left ventricular size is normal. There is mild concentric left ventricular hypertrophy. Overa ll left ventricular systolic function is normal with, an EF between 55 - 60 %. The right ventricle is normal in size. The left atrial size is normal. The right atrial size is normal. There is mild aortic valve sclerosis. There is no evidence of aortic regurgitation. Mild mitral annular calcification present. Mild mitral regurgitation is present. There is no pulmonic regurgitation present. The aortic root size is normal. There is no pericardial effusion. CONCLUSIONS -------- 1. The left ventricular size is normal. 2. There is mild concentric left ventricular hypertrophy. 3. Overall left ventricular systolic function is normal with, an EF between 55 - 60 %. 4. The right ventricle is normal in size. 5. The left atrial size is normal. 6. The right atrial size is normal. 7. There is mild aortic valve sclerosis. 8. Mild mitral annular calcification present. 9. Mild mitral regurgitation is present. 10. There is no pulmonic regurgitation present. 11. The aortic root size is normal. 12. There is no pericardial effusion. MEDIA SERVICES DIRECTOR: Jennifer Alston RDCS
--- NOTE | 2018-07-02 10:06 | MR ---
EXAMINATION TYPE: MR angio head wo con DATE OF EXAM: 07/02/2018 COMPARISON: NONE HISTORY: Dizzy spells TECHNIQUE: Utilizing 3-D [id number] intracranial MRA of the [place] was performed. FINDINGS: The vertebrobasilar and carotid systems are patent. There is no sizable aneurysm or vascular malform ation. IMPRESSION: 1. No evidence of vascular malformation or sizable aneurysm.
--- NOTE | 2018-07-02 10:42 | P.CONS ---
History of Present Illness - Reason for Consult Consult date: 07/02/18 hematemesis Requesting physician: Zak Bush - Chief Complaint weakness increased forgetfulness, hematemesis - History of Present Illness 77-year-old gentleman with a past medical history of atrial fibrillation maintained on Eliquis, hyperlipidemia, forgetfulness admitted with worsening forgetfulness were last few months weakness unsteadiness of his gait elevated blood pressures. Patient states he has been intermittently forgetful for the last 4 years but worsened over the last few months. Patient states he had a few episodes of blood-tinged emesis yesterday without hematochezia or melena. No history GI bleed. No history of recent EGD colonoscopy. No NSAIDs alcohol. Admission hemoglobin 13.9 presently increased to 14.2. Platelet 149. INR 1.1. BUN 23. Creatinine 0.9. Denies abdominal pain weight loss changes in appetite. MRA head/MRI brain completed results pending. CT brain age-related atrophic chronic small vessel ischemic changes without acute intracranial process. Review of Systems Constitutional: Denies fever, chills, sweats, weight gain, or loss. History of forgetfulness. Admitted with weakness. HEENT: Negative for migraines, blurred vision or loss, earaches, drainage, tinnitus, oral mucosal lesions, dysphagia, or odynophagia. Cardiac: Negative for chest pain, arrhythmias, or palpitation. Respiratory: Negative for shortness of breath, hemoptysis, cough, or sputum production. Gastrointestinal: See HPI for pertinent findings. Genitourinary: Negative for hematuria, urgency, frequency, polyuria, dysuria, or penile discharge. Musculoskeletal: Negative for muscle aches, swelling, arthritis, and arthralgias. Neurologic: Negative for stroke or TIA. Endocrine: Negative for thyroid problems. Skin: Negative for rash or itching. Psychiatric: Negative history for depression and anxiety Past Medical History Past Medical History: Atrial Fibrillation, CVA/TIA, Hyperlipidemia, Hypertension , Memory Impairment, Osteoarthritis (OA), Prostate Disorder Additional Past Medical History / Comment(s): 07-01-18 admission-pt's daughter stated that friday was in [place] d/t "feeling funny" and elevated bp. furthur stated pt having episodes of dizziness/headache/reddness and puffiness to face / and today 07-01-18 balance issues,confusion, rt eye blurry and vomited x2 they noted blood in it. other pmh includes: tia 2009,gout, arthirits lt hip, gets up at least 3 times at night to urinate History of Any Multi-Drug Resistant Organisms: None Reported Past Surgical History: No Surgical Hx Reported Additional Past Surgical History / Comment(s): ebony, cardioversion, colonoscopy/ polypectomy-benign Past Anesthesia/Blood Transfusion Reactions: No Reported Reaction Additional Past Anesthesia/Blood Transfusion Reaction / Comm: pt lives alone in a single level home, [address], no home care services, no medical equipment. pt served in the [employer]. Smoking Status: Former smoker - Past Family History Mother Family Medical History: CVA/TIA Father Family Medical History: Myocardial Infarction ([place]) Medications and Allergies Home Medications Medication Instructions Recorded Confirmed Type Allopurinol [Zyloprim] 300 mg PO DAILY 10/13/17 07/01/18 History Atorvastatin [Lipitor] 20 mg PO HS 10/13/17 07/01/18 History Metoprolol Succinate (ER) [Toprol 50 mg PO DAILY 10/13/17 07/01/18 History XL] Triamterene/Hydrochlorothiazid 1 cap PO DAILY 10/13/17 07/01/18 History [Dyazide 37.5-25 Capsule] Apixaban [Eliquis] 5 mg PO BID #60 tab 10/17/17 07/01/18 Rx Amiodarone [Cordarone] 200 mg PO DAILY 05/07/18 07/01/18 History Olmesartan Medoxomil 40 mg PO DAILY 05/07/18 07/01/18 History Potassium Chloride ER [K-Dur 20] 20 meq PO DAILY 05/07/18 07/01/18 History Tamsulosin HCl [Flomax] 0.4 mg PO DAILY 05/07/18 07/01/18 History amLODIPine BESYLATE 5 mg PO DAILY 05/07/18 07/01/18 History Allergies Allergy/AdvReac Type Severity Reaction Status Date / Time No Known Allergies Allergy Verified 07/01/18 13:47 Physical Exam Vitals: Vital Signs Temp Pulse Pulse Resp BP BP BP 07/02/18 08:00 98.4 F 60 16 163/82 07/02/18 04:00 60 15 144/74 01/24/19 00:00 64 16 178/77 153/70 07/01/18 22:45 198/89 07/01/18 21:50 60 175/82 07/01/18 21:00 97.1 F L 58 L 16 197/85 07/01/18 18:48 62 176/81 07/01/18 17:23 61 162/77 07/01/18 15:30 97.6 F 63 18 197/88 07/01/18 15:04 56 L 18 170/87 07/01/18 13:03 59 L 16 179/90 Pulse Ox 07/02/18 08:00 93 L 07/02/18 04:00 90 L 07/02/18 00:00 92 L 07/01/18 22:45 07/01/18 21:50 94 L 07/01/18 21:00 91 L 07/01/18 18:48 94 L 07/01/18 17:23 07/01/18 15:30 91 L 07/01/18 15:04 93 L 07/01/18 13:03 97 Intake and Output 07/01/18 07/02/18 07/02/18 22:59 06:59 14:59 Intake Total 1080 Output Total 800 500 400 Balance 280 -500 -400 Intake: Intake, IV Titration 200 Amount Sodium Chloride 0.9% 1, 200 000 ml @ 10 mls/hr IV . Q24H [facility] Rx#:[id number] Oral 880 Output: Urine 800 500 400 Other: Voiding Method Urinal Urinal Urinal # Voids 1 Weight 99.3 kg General appearance: The patient is alert, oriented, in no acute distress. HET: Head is normocephalic and atraumatic. Pupils are equal and reactive. Oropharynx is clear without lesions. Neck: Supple without lymphadenopathy. Trachea midline. Heart: S1 S2. Lungs: No crackles or wheezes are heard. Abdomen: Soft, nontender, nondistended with bowel sounds. No peritoneal signs. No palpable organomegaly or masses. Extremities: Normal skin color and turgor. No cyanosis, rash, ulceration, clubbing, or edema. Radial and pedal pulses are 2/4 bilaterally. Neurological: No focal deficits. Strength and sensation are grossly intact. Results CBC & Chem 7: 07/01/18 19:53 07/01/18 10:58 Labs: Abnormal Lab Results - Last 24 Hours (Table) 07/01/18 07/01/18 07/01/18 Range/Units 10:58 10:58 12:29 Plt Count 146 L (150-450) k/uL Lymphocytes # 0.5 L (1.0-4.8) k/uL BUN 23 H (9-20) mg/dL Glucose 153 H (74-99) mg/dL Urine Protein 2+ H (Negative) Urine Ketones 2+ H (Negative) Urine Mucus Rare H (None) /hpf 07/01/18 Range/Units 19:53 Plt Count 149 L (150-450) k/uL Lymphocytes # (1.0-4.8) k/uL BUN (9-20) mg/dL Glucose (74-99) mg/dL Urine Protein (Negative) Urine Ketones (Negative) Urine Mucus (None) /hpf Assessment and Plan (1) Hematemesis Narrative/Plan: 77-year-old male and with acute on chronic forgetfulness with vertigo hypertension weakness few episodes of pink red tinged hematemesis on anticoagulation for history of atrial fibrillation. Suspect a Stacey-Silvestre tear underlying peptic ulcer disease cannot be excluded however hemoglobin is trending upwards presently 14.2 with no recurrence of hematemesis, hematochezia or melena. Current Visit: Yes Status: Acute Code(s): K92.0 - HEMATEMESIS SNOMED Code( s): 2487998 (2) Altered mental status Current Visit: Yes Status: Acute Code(s): R41.82 - ALTERED MENTAL STATUS, UNSPECIFIED SNOMED Code(s): 723450289 (3) Vertigo Current Visit: Yes Status: Acute Code(s): R42 - DIZZINESS AND GIDDINESS SNOMED Code(s): 220875894 (4) Atrial fibrillation Current Visit: No Status: Acute Code(s): I48.91 - UNSPECIFIED ATRIAL FIBRILLATION SNOMED Code(s): 10507786 Plan: 1. Inpatient endoscopic exams not planned at this time unless patient manifests active GI bleed or precipitous drop in hemoglobin. Patient is to receiving anticoagulation. CBC monitoring. We'll follow with you. Thank you for this kind referral and the opportunity to participate in the care of your patient. This consultation was discussed with Dr. Reyez. The impression and plan of care have been directed as dictated.
--- NOTE | 2018-07-02 11:00 | MR ---
EXAMINATION TYPE: MR brain wo/w con DATE OF EXAM: 07/02/2018 COMPARISON: 10/15/2017 HISTORY: Dizziness TECHNIQUE: Multiplanar, multisequence images of the brain and brainstem is performed without and with IV contras t, utilizing 10 mL intravenous Gadavist . FINDINGS: Diffusion weighted images demonstrate 2 mm area of increased signal diffusion imaging the r ight parietal lobe. There is moderate generalized degenerative change and there are diffuse areas of abnormal signal thro ughout the white matter bilaterally in a nonspecific pattern. Changes of chronic sinusitis noted with nasal septal deviation. No midline shift or mass effect. There is a partially empty sella turcica. Craniocervical junction maintained. No enhancing mass or mass effect. Abnormal signal seen in the basal ganglia may represent prominent V irchow-Oleg spaces rather than tiny remote lacunar infarcts. Trace amount of fluid surrounding the o ptic nerves correlate for papilledema. IMPRESSION: 1. Small focal area of acute ischemia measuring 2 to 3 mm right parietal lobe. Report called to patie nt's nurse. No mass effect. 2. Degenerative and nonspecific white matter changes most typical remote microvascular ischemia. 3. Trace amount of fluid surrounding the optic nerves is a nonspecific finding correlate clinically t o exclude papilledema or increased intracranial pressure.
[2018-07-02] MEDS: ASPIRIN 81 MG PO SCH (11:16)
--- NOTE | 2018-07-02 12:33 | US ---
EXAMINATION TYPE: US carotid duplex BILAT DATE OF EXAM: 07/02/2018 COMPARISON: CLINICAL HISTORY: dizziness. HTN- controlled with meds, TIA x 10 years ago EXAM MEASUREMENTS: RIGHT: Peak Systolic Velocity (PSV) cm/sec ----- Right CCA: 77.3 ----- Right ICA: 132.4 ----- Right ECA: 168.6 ICA/CCA ratio: 1.7 RIGHT: End Diastole cm/sec ----- Right CCA: 12.7 ----- Right ICA: 18.1 ----- Right ECA: 11.0 LEFT: Peak Systolic Velocity (PSV) cm/sec ----- Left CCA: 74.5 ----- Left ICA: 157.5 ----- Left ECA: 154.9 ICA/CCA ratio: 2.1 LEFT: End Diastole cm/sec ----- Left CCA: 12.4 ----- Left ICA: 21.5 ----- Left ECA: 9.1 VERTEBRALS (direction of flow): Right Vertebral: Unable to visualized Left Vertebral: Antegrade Rhythm: Normal Elevated right proximal ICA, bilateral ECA and proximal left ICA. Plaque seen in bilateral bulbs ext ending into proximal ICA. No wall thickening. Elevated left significant stenosis. IMPRESSION: 1. Atheromatous plaquing contributing to moderate stenosis at the bilateral carotid bifurcations, est imated between 50 and 69%. 2. Nonvisualization of the right vertebral artery. Criteria for Assigning % of Stenosis / Diameter reduction (Estimation based on the indirect measurements of the internal carotid artery velocities (ICA PSV). 1. Normal (no stenosis)=ICA PSV < 125 cm/s: ratio < 2.0: ICA EDV<40 cm/s. 2. Less than 50% stenosis=ICA PSV < 125 cm/s: ratio < 2.0: ICA EDV<40 cm/s. 3. 50 to 69% stenosis=ICA PSV of 125 to 230 cm/s: ration 2.0 ? 4.0: ICA EDV 40-100 cm/s. 4. Greater than 70% stenosis to near occlusion= ICA PSV > 230 cm/s: ratio > 4.0: ICA EDV > 100 cm/s. 5. Near occlusion= ICA PSV velocities may be low or undetectable: variable ratio and ICA EDV. 6. Total occlusion=unable to detect flow.
--- NOTE | 2018-07-02 13:10 | P.CRDCN ---
History of Present Illness Consult date: 07/02/18 Chief complaint: Hypertension emergency History of present illness: This is a pleasant 77-year-old gentleman with a past medical history significant for paroxysmal atrial fibrillation as well as hypertension was brought by his family to the emergency room because he was not feeling well. The patient's family noticed that the patient has been off balance. He was more tired and fatigued than normal. Beside that he was having some blurry vision. These symptoms started a few days ago. No symptoms of chest pain or chest discomfort, no shortness of breath, and no syncope. It was noticed that the patient also was experiencing symptoms of heart racing and fluttering. The family noticed that the patient's blood pressure was more than 200 mm systolic and because of that they decided to bring him to the emergency room. The EKG showed sinus bradycardia. There is diffuse nonspecific ST and T wave abnormalities. The cardiac enzymes were checked and came in to be unremarkable. The patient underwent an MRI of the brain and that showed possible small area of acute ischemia involving the right parietal lobe. Carotid duplex study was performed and showed intermediate bilateral carotid disease. I'll follow-up with the patient today, July [id number], he stated that he is feeling better. He denies having any chest pain or chest discomfort. No shortness of breath. The feeling of heart racing and fluttering has resolved. He was on Norvasc is 5 mg by mouth daily and that was increased to 10 mg by mouth daily. I am going to start the patient on hydralazine at 25 mg by mouth 3 times a day. An echocardiogram was performed and revealed normal left ventricle systolic function. I am also going to decrease the dose of amiodarone in view of the bradycardia which could be contributing to the patient 's symptoms of feeling dizzy and lightheaded. Past Medical History Past Medical History: Atrial Fibrillation, CVA/TIA, Hyperlipidemia, Hypertension , Memory Impairment, Osteoarthritis (OA), Prostate Disorder Additional Past Medical History / Comment(s): 07-01-18 admission-pt's daughter stated that friday was in [place] d/t "feeling funny" and elevated bp. furthur stated pt having episodes of dizziness/headache/reddness and puffiness to face / and today 07-01-18 balance issues,confusion, rt eye blurry and vomited x2 they noted blood in it. other pmh includes: tia 2009,gout, arthirits lt hip, gets up at least 3 times at night to urinate History of Any Multi-Drug Resistant Organisms: None Reported Past Surgical History: No Surgical Hx Reported Additional Past Surgical History / Comment(s): ebony, cardioversion, colonoscopy/ polypectomy-benign Past Anesthesia/Blood Transfusion Reactions: No Reported Reaction Additional Past Anesthesia/Blood Transfusion Reaction / Comment(s): pt lives alone in a single level home, [address], no home care services, no medical equipment. pt served in the [employer]. Smoking Status: Former smoker - Past Family History Mother Family Medical History: CVA/TIA Father Family Medical History: Myocardial Infarction ([place]) Medications and Allergies Home Medications Medication Instructions Recorded Confirmed Type Allopurinol [Zyloprim] 300 mg PO DAILY 10/13/17 07/01/18 History Atorvastatin [Lipitor] 20 mg PO HS 10/13/17 07/01/18 History Metoprolol Succinate (ER) [Toprol 50 mg PO DAILY 10/13/17 07/01/18 History XL] Triamterene/Hydrochlorothiazid 1 cap PO DAILY 10/13/17 07/01/18 History [Dyazide 37.5-25 Capsule] Apixaban [Eliquis] 5 mg PO BID #60 tab 10/17/17 07/01/18 Rx Amiodarone [Cordarone] 200 mg PO DAILY 05/07/18 07/01/18 History Olmesartan Medoxomil 40 mg PO DAILY 05/07/18 07/01/18 History Potassium Chloride ER [K-Dur 20] 20 meq PO DAILY 05/07/18 07/01/18 History Tamsulosin HCl [Flomax] 0.4 mg PO DAILY 05/07/18 07/01/18 History amLODIPine BESYLATE 5 mg PO DAILY 05/07/18 07/01/18 History Allergies Allergy/AdvReac Type Severity Reaction Status Date / Time No Known Allergies Allergy Verified 07/01/18 13:47 Physical Exam Vitals: Vital Signs Temp Pulse Pulse Resp BP BP BP 07/02/18 11:15 56 L 16 158/71 07/02/18 08:00 98.4 F 60 16 163/82 07/02/18 04:00 60 15 144/74 07/02/18 00:00 64 16 178/77 153/70 07/01/18 22:45 198/89 07/01/18 21:50 60 175/82 07/01/18 21:00 97.1 F L 58 L 16 197/85 07/01/18 18:48 62 176/81 07/01/18 17:23 61 162/77 07/01/18 15:30 97.6 F 63 18 197/88 07/01/18 15:04 56 L 18 170/87 Pulse Ox 07/02/18 11:15 92 L 07/02/18 08:00 93 L 07/02/18 04:00 90 L 07/02/18 00:00 92 L 07/01/18 22:45 07/01/18 21:50 94 L 07/01/18 21:00 91 L 07/01/18 18:48 94 L 07/01/18 17:23 07/01/18 15:30 91 L 07/01/18 15:04 93 L Intake and Output 07/01/18 07/02/18 07/02/18 22:59 06:59 14:59 Intake Total 1080 Output Total 800 500 400 Balance 280 -500 -400 Intake: Intake, IV Titration 200 Amount Sodium Chloride 0.9% 1, 200 000 ml @ 10 mls/hr IV . Q24H [facility] Rx#:[id number] Oral 880 Output: Urine 800 500 400 Other: Voiding Method Urinal Urinal Urinal # Voids 1 Weight 99.3 kg - Constitutional General appearance: no acute distress - Respiratory Respiratory: bilateral: CTA - Cardiovascular Rhythm: regular Heart sounds: normal: S1, S2 Abnormal Heart Sounds: systolic murmur Results 07/01/18 19:53 07/01/18 10:58 CBC 07/01/18 Range/Units 19:53 WBC 6.8 (3.8-10.6) k/uL RBC 4.71 (4.30-5.90) m/uL Hgb 14.2 (13.0-17.5) gm/dL Hct 41.9 (39.0-53.0) % Plt Count 149 L (150-450) k/uL Current Medications Generic Name Dose Route Start Last Admin Trade Name Freq PRN Reason Stop Dose Admin Allopurinol 300 mg 07/01/18 16:45 07/02/18 08:15 Zyloprim PO 300 mg DAILY [facility]ANYA Administration Amiodarone HCl 200 mg 07/01/18 16:45 07/02/18 08:15 Cordarone PO 200 mg DAILY [facility]ANYA Administration Amlodipine Besylate 10 mg 07/02/18 09:00 07/02/18 08:15 Norvasc PO 10 mg DAILY [facility] Administration Apixaban 5 mg 07/01/18 21:45 07/02/18 08:15 Eliquis PO 5 mg BID [facility]ANYA Administration Aspirin 81 mg 07/02/18 11:15 07/02/18 11:16 Aspirin PO 81 mg DAILY [facility]ANYA Administration Atorvastatin Calcium 40 mg 07/02/18 21:00 Lipitor PO HS CHAITANYA Hydralazine HCl 25 mg 07/02/18 16:00 Apresoline PO TID [facility]AITANYA Sodium Chloride 1,000 mls @ 10 mls/hr 07/01/18 16:45 07/01/18 17:27 Saline 0.9% IV 50 mls/hr .Q24H [facility] Administration Losartan Potassium 150 mg 07/02/18 21:00 Cozaar PO HS [facility]AITANYA Meclizine HCl 25 mg 07/01/18 13:50 07/01/18 17:27 Antivert PO 25 mg TID PRN Administration Vertigo Metoprolol Succinate 50 mg 07/02/18 09:00 07/02/18 08:15 Toprol Xl PO 50 mg DAILY [facility]ANY[facility] Administration Potassium Chloride 20 meq 07/02/18 09:00 07/02/18 08:15 K-Dur 20 PO 20 meq DAILY [facility] Administration Tamsulosin HCl 0.4 mg 07/01/18 16:45 07/02/18 08:15 Flomax PO 0.4 mg DAILY [facility]A Administration Intake and Output 07/01/18 07/02/18 07/02/18 22:59 06:59 14:59 Intake Total 1080 Output Total 800 500 400 Balance 280 -500 -400 Intake: Intake, IV Titration 200 Amount Sodium Chloride 0.9% 1, 200 000 ml @ 10 mls/hr IV . Q24H [facility] Rx#:[id number] Oral 880 Output: Urine 800 500 400 Other: Voiding Method Urinal Urinal Urinal # Voids 1 Weight 99.3 kg 07/01/18 19:53 07/01/18 10:58 Assessment and Plan Assessment: Assessment #1 paroxysmal atrial fibrillation the patient has been maintaining normal sinus mechanism #2 sinus bradycardia #3 hypertension emergency #4 possible noncompliance with medications Plan #1 agree about increasing the dose of Norvasc #2 I am going to add hydralazine to the current medical regimen for better blood pressure control #3 decrease the dose of amiodarone in view of the bradycardia #4 the echocardiogram was reviewed #5 follow-up with the patient. Thank you for allowing us participate in his care and we'll continue following up with him
[2018-07-02] MEDS: SODIUM CHLORIDE 0.9% 1,000 ML IV SCH (14:15)
[2018-07-02] MEDS: hydrALAZINE HCL 25 MG TAB PO SCH ×2 (16:12→23:26)
[2018-07-02] MEDS ORDERED: LOSARTAN 50 MG TAB PO SCH (21:00)
[2018-07-02] MEDS ORDERED: ATORVASTATIN 40 MG TAB PO SCH (21:00)
[2018-07-03] MEDS ORDERED: AMIODARONE 100 MG TAB PO SCH (09:00)
--- NOTE | 2018-07-03 09:25 | P.PN ---
Subjective Progress Note Date: 07/03/18 Principal diagnosis: Hypertension emergency This is a pleasant 77-year-old gentleman with a past medical history significant for paroxysmal atrial fibrillation as well as hypertension was brought by his family to the emergency room because he was not feeling well. The patient's family noticed that the patient has been off balance. He was more tired and fatigued than normal. Beside that he was having some blurry vision. These symptoms started a few days ago. No symptoms of chest pain or chest discomfort, no shortness of breath, and no syncope. It was noticed that the patient also was experiencing symptoms of heart racing and fluttering. The family noticed that the patient's blood pressure was more than 200 mm systolic and because of that they decided to bring him to the emergency room. The EKG showed sinus bradycardia. There is diffuse nonspecific ST and T wave abnormalities. The cardiac enzymes were checked and came in to be unremarkable. The patient underwent an MRI of the brain and that showed possible small area of acute ischemia involving the right parietal lobe. Carotid duplex study was performed and showed intermediate bilateral carotid disease. I'll follow-up with the patient today, July [id number], he remains asymptomatic from the cardiovascular standpoint of view. The blood pressure continues to be not well-controlled. I would increase the dose of hydralazine to 50 mg by mouth 3 times a day and add hydrochlorothiazide 25 mg by mouth daily. The echocardiogram revealed with and revealed normal LV function with mild MR and mild TR. Carotid duplex study was performed and revealed intermediate bilateral disease. Objective - Vital Signs Vital signs: Vital Signs Temp 98 F 07/02/18 20:00 Pulse 55 L 07/03/18 04:00 Resp 16 07/03/18 04:00 BP 164/80 07/03/18 04:00 Pulse Ox 94 L 07/03/18 04:00 Intake & Output 07/02/18 07/03/18 07/03/18 18:59 06:59 18:59 Intake Total 410 Output Total 1400 1 0 Balance -990 -1 0 Weight 99.9 kg Intake: Oral 410 Output: Urine 1400 1 0 Other: Voiding Method Urinal Urinal # Voids 2 - Constitutional General appearance: Present: no acute distress - Respiratory Respiratory: bilateral: CTA - Cardiovascular Rhythm: regular Heart sounds: normal: S1, S2 - Labs CBC & Chem 7: 07/01/18 19:53 07/01/18 10:58 Assessment and Plan Assessment: Assessment #1 paroxysmal atrial fibrillation the patient has been maintaining normal sinus mechanism #2 sinus bradycardia #3 hypertension emergency #4 possible noncompliance with medications Plan #1 continue the current medical regimen #2 increase the dose of hydralazine #3 add hydrochlorothiazide #4 follow-up
[2018-07-03] MEDS: APIXABAN 5 MG TAB PO SCH (09:45)
[2018-07-03] MEDS: ALLOPURINOL 300 MG TAB PO SCH (09:45)
[2018-07-03] MEDS: amLODIPine 10 MG TAB PO SCH (09:45)
[2018-07-03] MEDS: POTASSIUM CHLORIDE ER 20 MEQ TAB.ER PO SCH (09:46)
[2018-07-03] MEDS: TAMSULOSIN 0.4 MG CAP.ER.24H PO SCH (09:46)
[2018-07-03] MEDS: METOPROLOL SUCCINATE (ER) 50 MG TAB.ER.24H PO SCH (09:46)
[2018-07-03] MEDS: ASPIRIN 81 MG PO SCH (09:53)
--- NOTE | 2018-07-03 10:40 | P.PN ---
Subjective Progress Note Date: 07/03/18 Principal diagnosis: hematemesis No bleeding. Denies abdominal pain. Afebrile. Objective - Vital Signs Vital signs: Vital Signs Temp 98 F 07/02/18 20:00 Pulse 55 L 07/03/18 04:00 Resp 16 07/03/18 04:00 BP 164/80 07/03/18 04:00 Pulse Ox 94 L 07/03/18 04:00 Intake & Output 07/02/18 07/03/18 07/03/18 18:59 06:59 18:59 Intake Total 410 Output Total 1400 1 Balance -990 -1 Weight 99.9 kg Intake: Oral 410 Output: Urine 1400 1 Other: Voiding Method Urinal Urinal # Voids 2 - Exam General appearance: The patient is alert, oriented, in no acute distress. HET: Head is normocephalic and atraumatic. Pupils are equal and reactive. Oropharynx is clear without lesions. Neck: Supple without lymphadenopathy. Trachea midline. Heart: S1 S2. Regular rate and rhythm. Lungs: No crackles or wheezes are heard. Abdomen: Soft, nontender, nondistended with bowel sounds. No peritoneal signs. No palpable organomegaly or masses. Extremities: Normal skin color and turgor. No cyanosis, rash, ulceration, clubbing, or edema. Radial and pedal pulses are 2/4 bilaterally. Neurological: No focal deficits. Strength and sensation are grossly intact. - Labs CBC & Chem 7: 07/01/18 19:53 07/01/18 10:58 Assessment and Plan (1) Hematemesis Narrative/Plan: 77-year-old male and with acute on chronic forgetfulness with vertigo hypertension weakness few episodes of pink red tinged hematemesis on anticoagulation for history of atrial fibrillation. Suspect a Stacey-Silvestre tear underlying peptic ulcer disease cannot be excluded however hemoglobin is trending upwards presently 14.2 with no recurrence of hematemesis, hematochezia or melena. Since admission no further episodes of hematemesis. No evidence of hematochezia or melena. Current Visit: Yes Status: Acute Code(s): K92.0 - HEMATEMESIS SNOMED Code( s): 1486879 (2) Altered mental status Current Visit: Yes Status: Acute Code(s): R41.82 - ALTERED MENTAL STATUS, UNSPECIFIED SNOMED Code(s): 759933612 (3) Vertigo Current Visit: Yes Status: Acute Code(s): R42 - DIZZINESS AND GIDDINESS SNOMED Code(s): 818853626 (4) Atrial fibrillation Current Visit: No Status: Acute Code(s): I48.91 - UNSPECIFIED ATRIAL FIBRILLATION SNOMED Code(s): 46969644 Plan: 1. Inpatient endoscopic exams not planned at this time unless patient manifests active GI bleed or precipitous drop in hemoglobin. Patient is receiving anticoagulation. CBC monitoring. Will follow as needed. Assessment and plan a care discussed with Dr. Reyez
[2018-07-03] MEDS: hydrALAZINE HCL 25 MG TAB PO SCH (11:26)
[2018-07-03 12:11] VITALS: RESP 18
[2018-07-03] MEDS: SODIUM CHLORIDE 0.9% 1,000 ML IV SCH (12:57)
[2018-07-03] MEDS ORDERED: hydrALAZINE HCL 50 MG TAB PO SCH (16:00)
[2018-07-03 16:13] VITALS: PULSE 56; TEMP 97.9
[2018-07-03 16:55] VITALS: BP 155/75
--- NOTE | 2018-07-03 22:25 | PN ---
PROGRESS NOTE DATE OF SERVICE: 07/02/2018 PRESENTING COMPLAINT: Dizziness. INTERVAL HISTORY: This patient was seen by me yesterday evening. Patient presented with dizziness, uncontrolled blood pressure. MRI did confirm a right parietal stroke. Patient is on antiplatelet agents and dose of Lipitor is being increased. Blood pressure is coming down. Overall feels better. REVIEW OF SYSTEMS: Done for constitutional, cardiovascular, GI, pulmonary; relevant findings as above. CURRENT MEDICATIONS: Reviewed. They include Eliquis and Lipitor. PHYSICAL EXAMINATION: VITAL SIGNS: Temperature 97.6, pulse 55, respiration 16, blood pressure 159/58, pulse ox 95% on room air. GENERAL APPEARANCE: Lying in bed, comfortable. EYES: Pupils equal. Conjunctivae normal. NECK: JVD not raised. Mass not palpable. RESPIRATORY: Effort normal. Lungs are clear. CARDIOVASCULAR: First and second sounds normal. No edema. ABDOMEN: Soft, non-tender. Liver and spleen not palpable. PSYCHIATRY: Alert and oriented x3. Answering questions appropriately. INVESTIGATIONS: Carotid Doppler does not show any critical stenosis. Two-D echo, EF of 55% to 60%. Brain MRI shows small focal area of acute ischemia, right parietal lobe. ASSESSMENT: 1. 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 2. Paroxysmal atrial fibrillation. Patient is on Eliquis. 3. Hyperlipidemia. 4. Primary osteoarthritis. 5. Obesity; body mass index 31.6. 6. Mild cognitive impairment. 7. Non-critical carotid artery stenosis. PLAN: Continue current medication and treatment plan. Patient is on antiplatelet agents, Eliquis, and dose of Lipitor is increased. Will watch the patient for another 24 hours. MMODL / IJN: [id number] /
--- NOTE | 2018-07-04 08:17 | DS ---
DISCHARGE SUMMARY DATE OF ADMISSION: July 01, 2018. DATE OF DISCHARGE: July 03, 2018. FINAL DIAGNOSES: 1. Acute right parietal stroke in a right-handed patient, probably ischemic. 2. Accelerated hypertension. 3. Paroxysmal atrial fibrillation, prior history of cardioversion for which patient is on Eliquis. 4. Hyperlipidemia. 5. Primary osteoarthritis. 6. Obesity; BMI 31.6. 7. Mild cognitive impairment. 8. Nonobstructive coronary artery stenosis less than 70%. HOSPITAL COURSE: This patient who has been having high blood pressure, presented with dizziness. MRI of the brain did show right parietal stroke. MRA of the brain was unremarkable. Carotid Doppler showed between 50-69 percent. There was nonvisualization of right vertebral artery. 2D echocardiogram EF was normal. Initial CT scan of the brain was unremarkable. Patient's TSH was normal. So was vitamin B12. The patient's blood pressure much better controlled. CONSULTATION: Dr. Jimenez from Cardiology. PHYSICAL EXAMINATION: VITAL SIGNS: Temperature 97.9, pulse 56, respiratory 18, blood pressure 155/75, pulse ox 94 percent on room air. GENERAL APPEARANCE: Sitting up, answering questions. LUNGS: Fair air entry. CARDIOVASCULAR: 1st and 2nd sounds normal. No focal neurological signs. DISCHARGE MEDICATIONS: 1. Allopurinol 300 mg a day. 2. Toprol-XL 50 mg a day. 3. Eliquis 5 mg b.i.d. 4. Cordarone 200 mg a day. 5. Flomax 0.4 mg a day. 6. Aspirin 81 mg a day. 7. Lipitor 40 mg at bedtime. 8. Pepcid 20 mg b.i.d. 9. 40 mg at bedtime. 10.Norvasc 10 mg p.o. daily. 11.Hydralazine 50 mg p.o. t.i.d. Discontinued medications include Dyazide, Lipitor 20, potassium 20, Norvasc 5 mg a day. FOLLOWUP: With [facility], follow up with Dr. Gurrola on July 09, 2018. Follow up with Dr. Elham Stein on July 17, 2018. The patient is to follow up with vascular surgery for the carotids in 2-3 weeks. This to be coordinated by Dr. Gurrola. Discussion and discharge planning more than 35 minutes. Questions were answered to the son and the patient. Copy to Dr. Gurrola. MMEDIS / IJN: [id number] /
[2018-07-04] MEDS ORDERED: HYDROCHLOROTHIAZIDE 25 MG TAB PO SCH (09:00)
== END 2018-07-03 17:05 | disposition home health service (06) | DRG 65 ==
LOC: EC 10:17 → 3NMEDONC 14:07 → 3SCARD 22:33 → OBSVTOIN 07-02 12:09
PROVIDERS: ADMIT Hospitalist; ATTEND Hospitalist
DX: I63.9 Cerebral infarction, unspecified (principal); I16.1 Hypertensive emergency; K92.0 Hematemesis; R42 Dizziness and giddiness; M10.9 Gout, unspecified; I65.21 Occlusion and stenosis of right carotid artery; E78.5 Hyperlipidemia, unspecified; G31.84 Mild cognitive impairment of uncertain or unknown etiology; I48.0 Paroxysmal atrial fibrillation; M19.91 Primary osteoarthritis, unspecified site; I10 Essential (primary) hypertension; I25.10 Atherosclerotic heart disease of native coronary artery without angina pectoris; R00.1 Bradycardia, unspecified; E66.9 Obesity, unspecified; Z79.01 Long term (current) use of anticoagulants; Z79.899 Other long term (current) drug therapy; Z87.891 Personal history of nicotine dependence; Z68.31 Body mass index [BMI] 31.0-31.9, adult; Z82.3 Family history of stroke; Z82.49 Family history of ischemic heart disease and other diseases of the circulatory system; Z86.73 Personal history of transient ischemic attack (TIA), and cerebral infarction without residual deficits
CPT/HCPCS: 36415; 70450; 70544; 70553; 71046; 80053; 81001; 82550; 82553; 82607; 83735; 84443; 84484; 85025; 85610; 85730; 93005; 93306; 93880; 96361; 96374; 99285

== ENCOUNTER 2018-07-29 16:32 | Emergency (ER) | payer MEDICARE, OTHER ==
[2018-07-29 16:38] LABS: Glucose,Whole Blood 110 mg/dL (75-99)
--- NOTE | 2018-07-29 17:14 | ED ---
General Adult HPI - General Chief complaint: Neuro Symptoms/Deficit Stated complaint: NUMBNESS Time Seen by Provider: 07/29/18 16:46 Source: EMS Mode of arrival: EMS Limitations: no limitations - History of Present Illness Initial comments: Dictation was produced using [employer]LED-[employer] dictation software. please excuse any grammatical, word or spelling errors. Chief Complaint: 77-year-old male with past medical history of TIA percents with total body tingling. History of Present Illness: Patient is a 77-year-old male. Patient was recently discharged from this hospital for TIA workup. Patient was admitted and MRI was performed showing right parietal stroke. MRA was unremarkable. Patient did have carotid Doppler showing stenosis of 50-69%. Patient states that since being discharged he felt well until this morning. Patient went to bed and woke up did not know where he was. States that he also has paresthesias to his entire body. Patient states is an [place] without difficulties. Patient was scheduled to have a appointment with vascular surgery for possible carotid endarterectomy. MRI in the chart showed small focal area of acute ischemia 2-3 mm right parietal lobe. Patient otherwise feels well. Patient has been evaluated by neurology in the past. She has history of excessive alcohol use. Reports he is afraid he is having a TIA. Denies any numbness tingling however does complain of some pins and needles like sensation to his entire body. The ROS documented in this emergency department record has been reviewed and confirmed by me. Those systems with pertinent positive or negative responses have been documented in the HPI. All other systems are other negative and/or noncontributory. PHYSICAL EXAM: General Impression: Alert and oriented x3, not in acute distress HEENT: Normocephalic atraumatic, extra-ocular movements intact, pupils equal and reactive to light bilaterally, mucous membranes moist. Cardiovascular: Heart regular rate and rhythm, S1&S2 audible, no murmurs, rubs or gallops Chest: Lungs clear to auscultation bilaterally, no rhonchi, no wheeze, no rales Abdomen: Bowel sounds present, abdomen soft, non-tender, non-distended, no organomegaly Musculoskeletal: Pulses present and equal in all extremities, no peripheral edema Motor: Power 5/5 bilaterally, no focal deficits noted Neurological: CN II-XII grossly intact, no focal motor or sensory deficits noted Skin: Intact with no visualized rashes Psych: Normal affect and mood ED course: 77-year-old male presents with total body pins and needle sensation. Patient does not have any neuro deficits. Physical examination is benign. Signs upon arrival shows blood pressure 170/84, rest of vital signs within acceptable limits. Laboratory evaluation obtained. CBC, metabolic panel, electrolytes unremarkable. Patient reports that he is feeling a lot better. Patient does not have clinical presentation or HPI to suggest acute CVA. Patient has normal neurologic exam. Patient appears well at this time. This point there is no clear source of his total body tingling. Patient clear for discharge. EKG interpretation: Ventricular rate 66, normal sinus rhythm, AZ interval 206, QS 96, QTC 471. No AZ prolongation, no QTC prolongation, no ST or T-wave changes noted. . Overall, this EKG is unremarkable - Related Data Home Medications Medication Instructions Recorded Confirmed Allopurinol [Zyloprim] 300 mg PO DAILY@209910/13/17 07/29/18 Metoprolol Succinate (ER) [Toprol 50 mg PO DAILY@89910/13/17 07/29/18 XL] Amiodarone [Cordarone] 200 mg PO DAILY@209905/07/18 07/29/18 Tamsulosin HCl [Flomax] 0.4 mg PO DAILY@89905/07/18 07/29/18 Apixaban [Eliquis] 5 mg PO BID@09,209907/29/18 07/29/18 Aspirin 81 mg PO DAILY@89907/29/18 07/29/18 Atorvastatin [Lipitor] 40 mg PO HS@209907/29/18 07/29/18 Famotidine [Pepcid] 20 mg PO BID@09,209907/29/18 07/29/18 Olmesartan Medoxomil [Benicar] 40 mg PO DAILY@209907/29/18 07/29/18 Spironolactone 25 mg PO DAILY@89907/29/18 07/29/18 amLODIPine [Norvasc] 10 mg PO DAILY@0907/29/18 07/29/18 hydrALAZINE HCL [Apresoline] 50 mg PO TID@0900,1600,209907/29/18 07/29/18 Allergies Allergy/AdvReac Type Severity Reaction Status Date / Time No Known Allergies Allergy Verified 07/29/18 17:30 Review of Systems ROS Statement: Those systems with pertinent positive or pertinent negative responses have been documented in the HPI. ROS Other: All systems not noted in ROS Statement are negative. Past Medical History Past Medical History: Atrial Fibrillation, CVA/TIA, Hyperlipidemia, Hypertension , Memory Impairment, Osteoarthritis (OA), Prostate Disorder Additional Past Medical History / Comment(s): tia 2009,gout, arthirits lt hip, History of Any Multi-Drug Resistant Organisms: None Reported Past Surgical History: No Surgical Hx Reported Additional Past Surgical History / Comment(s): ebony, cardioversion, colonoscopy/ polypectomy-benign Past Anesthesia/Blood Transfusion Reactions: No Reported Reaction Additional Past Anesthesia/Blood Transfusion Reaction / Comment(s): pt lives alone in a single level home, has [address], no home care services, no medical equipment. pt served in the [employer], [employer] and [employer]. Past Psychological History: No Psychological Hx Reported Smoking Status: Former smoker Past Alcohol Use History: Rare Past Drug Use History: None Reported - Past Family History Mother Family Medical History: CVA/TIA Father Family Medical History: Myocardial Infarction (CA) General Exam Limitations: no limitations Course Vital Signs 07/29/18 16:35 Temperature 97.6 F Pulse Rate 66 Respiratory 18 Rate Blood Pressure 178/84 O2 Sat by Pulse 96 Oximetry Medical Decision Making - Lab Data Result diagrams: 07/29/18 16:43 07/29/18 16:43 Lab Results 07/29/18 07/29/18 07/29/18 Range/Units 16:36 16:43 16:43 WBC 4.9 (3.8-10.6) k/uL RBC 4.57 (4.30-5.90) m/uL Hgb 13.7 (13.0-17.5) gm/dL Hct 41.2 (39.0-53.0) % MCV 90.2 (80.0-100.0) fL MCH 30.0 (25.0-35.0) pg MCHC 33.3 (31.0-37.0) g/dL RDW 14.1 (11.5-15.5) % Plt Count 171 (150-450) k/uL Neutrophils % 67 % Lymphocytes % 15 % Monocytes % 9 % Eosinophils % 6 % Basophils % 1 % Neutrophils # 3.3 (1.3-7.7) k/uL Lymphocytes # 0.7 L (1.0-4.8) k/uL Monocytes # 0.4 (0-1.0) k/uL Eosinophils # 0.3 (0-0.7) k/uL Basophils # 0.1 (0-0.2) k/uL Sodium 140 (137-145) mmol/L Potassium 3.9 (3.5-5.1) mmol/L Chloride 106 (98-107) mmol/L Carbon Dioxide 27 (22-30) mmol/L Anion Gap 7 mmol/L BUN 18 (9-20) mg/dL Creatinine 1.01 (0.66-1.25) mg/dL Est GFR (CKD-EPI)AfAm 82 (>60 ml/min/1.73 sqM) Est GFR (CKD-EPI)NonAf 71 (>60 ml/min/1.73 sqM) Glucose 119 H (74-99) mg/dL POC Glucose (mg/dL) 110 H (75-99) mg/dL POC Glu [employer] TONG Ambreen Ferreira Calcium 9.5 (8.4-10.2) mg/dL Ionized Calcium Nnamdi 5.1 (4.5-5.3) mg/dL Phosphorus 3.3 (2.5-4.5) mg/dL Disposition Clinical Impression: Paresthesias Disposition: HOME SELF-CARE Condition: Good Is patient prescribed a controlled substance at d/c from ED?: No Referrals: Julio Gurrola MD [Primary Care Provider] - 1-2 days Time of Disposition: 17:55
[2018-07-29 17:29] LABS: Basophils # (A) 0.1 k/uL (0-0.2); Basophils % (A) 1 %; Eosinophils # (A) 0.3 k/uL (0-0.7); Eosinophils % (A) 6 %; HCT 41.2 % (39.0-53.0); HGB 13.7 gm/dL (13.0-17.5); Lymphocytes # (A) 0.7 k/uL (1.0-4.8); Lymphocytes % (A) 15 %; MCHC 33.3 g/dL (31.0-37.0); MCV 90.2 fL (80.0-100.0); Mean Platelet Volume 8.3; Monocytes # (A) 0.4 k/uL (0-1.0); Monocytes % (A) 9 %; Neutrophils # (A) 3.3 k/uL (1.3-7.7); Neutrophils % (A) 67 %; Platelet Count 171 k/uL (150-450); RBC 4.57 m/uL (4.30-5.90); RDW 14.1 % (11.5-15.5); WBC 4.9 k/uL (3.8-10.6)
[2018-07-29 17:32] LABS: Ionized Calcium 5.1 mg/dL (4.5-5.3)
[2018-07-29 17:42] LABS: Calcium 9.5 mg/dL (8.4-10.2); Phosphorus 3.3 mg/dL (2.5-4.5); Potassium 3.9 mmol/L (3.5-5.1)
[2018-07-29 18:20] VITALS: BP 169/89; PULSE 63; RESP 17; TEMP 98
== END 2018-07-29 18:20 | disposition home or self-care (01) ==
LOC: EC 16:32
DX: R20.2 Paresthesia of skin (principal); I48.91 Unspecified atrial fibrillation; E78.5 Hyperlipidemia, unspecified; I10 Essential (primary) hypertension; M16.12 Unilateral primary osteoarthritis, left hip; M10.9 Gout, unspecified; N42.9 Disorder of prostate, unspecified; Z87.891 Personal history of nicotine dependence; Z79.01 Long term (current) use of anticoagulants; Z79.82 Long term (current) use of aspirin; Z79.899 Other long term (current) drug therapy; Z86.73 Personal history of transient ischemic attack (TIA), and cerebral infarction without residual deficits; Z86.59 Personal history of other mental and behavioral disorders; Z98.890 Other specified postprocedural states
CPT/HCPCS: 36415; 80048; 82330; 84100; 85025; 93005; 99284

== ENCOUNTER 2023-11-11 06:52 | Inpatient (IN) | payer MEDICARE, OTHER ==
[2023-11-11 07:41] LABS: Basophils % (A) 0 %; Eosinophils # (A) 0.1 k/uL (0-0.7); Eosinophils % (A) 1 %; HCT 28.5 % (39.0-53.0); HGB 9.2 gm/dL (13.0-17.5); Hypochromasia Slight; Lymphocytes # (A) 0.6 k/uL (1.0-4.8); Lymphocytes % (A) 6 %; MCH 29.1 pg (25.0-35.0); MCHC 32.3 g/dL (31.0-37.0); MCV 90.1 fL (80.0-100.0); Mean Platelet Volume 8.6; Monocytes # (A) 0.4 k/uL (0-1.0); Monocytes % (A) 4 %; Neutrophils # (A) 7.8 k/uL (1.3-7.7); Neutrophils % (A) 87 %; Platelet Count 287 k/uL (150-450); RBC 3.16 m/uL (4.30-5.90); RDW 14.8 % (11.5-15.5)
[2023-11-11] MEDS: TRANEXAMIC ACID 1,000 MG/10 ML VIAL MISCELLANE ONE (07:57)
[2023-11-11 07:58] LABS: INR 1.3 (<1.2); Partial Thromboplastin Time 31.3 sec (22.0-30.0); Prothrombin Time 13.7 sec (10.0-12.5)
[2023-11-11] MEDS: OXYMETAZOLINE 0.05% NASL SPRAY 1 SPRAY BOTTLE NASAL STA (07:58)
[2023-11-11 08:11] LABS: ALT 32 U/L (4-49); AST 41 U/L (17-59); African American GFR (CKD) >90 (>60 ml/min/1.73 sqM); Albumin 3.2 g/dL (3.5-5.0); Alkaline Phosphatase 85 U/L (38-126); Anion Gap 8 mmol/L; Blood Urea Nitrogen 18 mg/dL (9-20); Calcium 8.4 mg/dL (8.4-10.2); Carbon Dioxide 20 mmol/L (22-30); Chloride 112 mmol/L (98-107); Glucose 192 mg/dL (74-99); Magnesium 1.8 mg/dL (1.6-2.3); Non-African American GFR(CKD) 85 (>60 ml/min/1.73 sqM); Potassium 3.7 mmol/L (3.5-5.1); Sodium 140 mmol/L (137-145); Total Protein 5.8 g/dL (6.3-8.2)
--- NOTE | 2023-11-11 08:59 | ED ---
GI Bleed HPI - General Chief complaint: GI Bleed Stated complaint: GI bleed, nose bleed Time Seen by Provider: 11/11/23 07:12 Source: patient, EMS Mode of arrival: EMS Limitations: no limitations - History of Present Illness Initial comments: 83-year-old male who presents to the emergency department with epistaxis and lower GI bleeding. He reports that he has had a nosebleed for the past 2 days. He is on Eliquis for A-fib. He also was placed on Mobic for his arthritis by his primary care doctor. He woke up this morning to the nosebleeding fairly significantly. He went into the bathroom where he had a near syncopal event. He laid on the ground and ended up having bright red blood per rectum. Patient believes it is because of all the blood he is swallowing. He also had an episode of emesis. He denies any abdominal pain. No history of GI bleeding per patient. He denies any injuries from the near syncopal event. Patient denies any chest pain or shortness of breath. No other alleviating, precipitating or modifying factors - Related Data Home Medications Medication Instructions Recorded Confirmed Metoprolol Succinate (ER) [Toprol 50 mg PO DAILY 10/13/17 11/11/23 XL] allopurinoL [Zyloprim] 300 mg PO DAILY 10/13/17 11/11/23 Tamsulosin HCl [Flomax] 0.4 mg PO DAILY 05/07/18 11/11/23 Apixaban [Eliquis] 5 mg PO BID 07/29/18 11/11/23 Atorvastatin [Lipitor] 40 mg PO HS 07/29/18 11/11/23 Olmesartan Medoxomil [Benicar] 40 mg PO DAILY 07/29/18 11/11/23 amLODIPine [Norvasc] 10 mg PO DAILY 07/29/18 11/11/23 hydrALAZINE HCL [Apresoline] 50 mg PO TID 07/29/18 11/11/23 Celecoxib [CeleBREX] 200 mg PO DAILY 11/11/23 11/11/23 Donepezil 23mg Tab 23 mg PO DAILY 11/11/23 11/11/23 Fluticasone Nasal [place] [Flonase 1 spray EA NOSTRIL BID PRN 11/11/23 11/11/23 Nasal [place]] Furosemide [Lasix] 20 mg PO DAILY 11/11/23 11/11/23 Loratadine [Claritin] 10 mg PO DAILY 11/11/23 11/11/23 Meloxicam [Mobic] 15 mg PO DAILY 11/11/23 11/11/23 Potassium Chloride ER [K-Dur 20] 20 meq PO DAILY 11/11/23 11/11/23 Sildenafil Citrate 50 - 100 mg PO DAILY PRN 11/11/23 11/11/23 Triamcinolone 0.1% Cream [Kenalog 1 applicatio TOPICAL BID PRN 11/11/23 11/11/23 0.1% Cream] hydrOXYzine HCL [Atarax] 25 mg PO HS PRN 11/11/23 11/11/23 Allergies Allergy/AdvReac Type Severity Reaction Status Date / Time No Known Allergies Allergy Verified 11/11/23 09:44 Review of Systems ROS Statement: Those systems with pertinent positive or pertinent negative responses have been documented in the HPI. ROS Other: All systems not noted in ROS Statement are negative. Past Medical History Past Medical History: Atrial Fibrillation, CVA/TIA, Hyperlipidemia, Hypertension, Memory Impairment, Osteoarthritis (OA), Prostate Disorder Additional Past Medical History / Comment(s): tia 2008,gout, arthirits lt hip, History of Any Multi-Drug Resistant Organisms: None Reported Past Surgical History: No Surgical Hx Reported Additional Past Surgical History / Comment(s): ebony, cardioversion, colonoscopy/polypectomy-benign Past Anesthesia/Blood Transfusion Reactions: No Reported Reaction Additional Past Anesthesia/Blood Transfusion Reaction / Comment(s): pt lives alone in a single level home, has [address], no home care services, no medical equipment. pt served in the [employer] and [employer]. Past Psychological History: No Psychological Hx Reported Smoking Status: Former smoker Past Alcohol Use History: Rare Past Drug Use History: None Reported - Past Family History Mother Family Medical History: CVA/TIA Father Family Medical History: Myocardial Infarction ([place]) General Exam Limitations: no limitations General appearance: alert, in no apparent distress Head exam: Present: atraumatic, other Eye exam: Present: normal appearance, PERRL, EOMI. Absent: scleral icterus, conjunctival injection, periorbital swelling ENT exam: Present: other (Right nare is coated and bright red blood. No active bleeding at this time) Respiratory exam: Present: normal lung sounds bilaterally. Absent: respiratory distress, wheezes, rales, rhonchi, stridor Cardiovascular Exam: Present: tachycardia, irregular rhythm GI/Abdominal exam: Present: soft, normal bowel sounds. Absent: distended, tenderness, guarding, rebound, rigid Rectal exam: Present: heme (+) stool, bloody stool Course Vital Signs 11/11/23 11/11/23 11/11/23 06:55 07:35 08:45 Temperature 98.0 F 97.3 F L Pulse Rate 138 H 126 H 126 H Respiratory 22 16 22 Rate Blood Pressure 109/74 116/76 125/87 Blood Pressure [Left Arm] O2 Sat by Pulse 97 95 95 Oximetry 11/11/23 11/11/23 11/11/23 11:07 15:05 16:25 Temperature 97.9 F 98.0 F 98.0 F Pulse Rate 110 H 89 93 Respiratory 17 17 17 Rate Blood Pressure 140/88 153/87 146/86 Blood Pressure [Left Arm] O2 Sat by Pulse 96 96 94 L Oximetry 11/11/23 11/11/23 18:22 21:38 Temperature Pulse Rate 96 Respiratory 18 18 Rate Blood Pressure 129/90 Blood Pressure 129/86 [Left Arm] O2 Sat by Pulse 94 L 96 Oximetry Procedures - Yolyn Protocol (Time Out) Nurse: Lee Ann Lam Medical Decision Making - Medical Decision Making Was pt. sent in by a medical professional or institution (ELISA Mcfadden, PARTS FACILITATOR, urgent care, hospital, or senior care...) When possible be specific @ -No Did you speak to anyone other than the patient for history (EMS, parent, family, police, friend...)? What history was obtained from this source @ -Spoke with the patient's family for history Did you review nursing and triage notes (agree or disagree)? Why? @ -I reviewed and agree with nursing and triage notes Were old charts reviewed (outside hosp., previous admission, EMS record, old EKG, old radiological studies, urgent care reports/EKG's, senior care records)? Report findings @ -No old charts were reviewed Differential Diagnosis (chest pain, altered mental status, abdominal pain women, abdominal pain men, vaginal bleeding, weakness, fever, dyspnea, syncope, headache, dizziness, GI bleed, back pain, seizure, CVA, palpatations, mental health, musculoskeletal)? @ -Differential GI Bleed: Esophageal varices, aortoenteric fistula, Stacey-Silvestre, gastritis, peptic ulcer disease, diverticulosis, inflammatory bowel disease, hemorrhoids, fissure, colitis, malignancy, Meckels diverticulum, this is not meant to be an all- inclusive list. EKG interpreted by me (3pts min.). @ -yes and demonstrates A-fib with a rate of 143. QRS 90. QTc of 401. No acute ST segment elevations or depressions X-rays interpreted by me (1pt min.). @ -None done CT interpreted by me (1pt min.). @ -None done U/S interpreted by me (1pt. min.). @ -None done What testing was considered but not performed or refused? (CT, X-rays, U/S, labs)? Why? @ -None What meds were considered but not given or refused? Why? @ -None Did you discuss the management of the patient with other professionals (prof valerioionals i.e. , PA, PARTS FACILITATOR, lab, RT, psych nurse, social science analyst, director private, teacher, air defense artillery officer, pillowcase folder)? Give summary @ -Spoke with Dr. Stephen who thinks that the patient's GI bleeding is likely coming from his nosebleed. Spoke with Dr. Dodson who will admit the patient Was smoking cessation discussed for >3mins.? @ -No Was critical care preformed (if so, how long)? @ -No Were there social determinants of health that impacted care today? How? (Homelessness, low income, unemployed, alcoholism, drug addiction, transportation, low edu. Level, literacy, decrease access to med. care, shelter, rehab)? @ -No Was there de-escalation of care discussed even if they declined (Discuss DNR or withdrawal of care, Hospice)? DNR status @ -No What co-morbidities impacted this encounter? (DM, HTN, Smoking, COPD, CAD, Cancer, CVA, ARF, Chemo, Hep., AIDS, mental health diagnosis, sleep apnea, morb id obesity)? @ -A-fib on anticoagulation Was patient admitted / discharged? Hospital course, mention meds given and route, prescriptions, significant lab abnormalities, going to OR and other pertinent info. @ -Upon arrival patient was seen and evaluated in room 9. Thorough history and physical exam was performed. Nose is not actively bleeding at this time however it is packed to prevent any further bleeding. Place an 8 cm Merocel in the patient's right nostril. IV is established. Laboratory studies are conducted. Rectal exam was performed which demonstrates bright maroon blood. Laboratory studies do reveal anemia. Patient is hemodynamically stable. I did recommend admission in order to trend his hemoglobin's. I spoke with GI who feels that his GI bleed is likely related to his epistaxis. Spoke with Dr. Dodson for admission Undiagnosed new problem with uncertain prognosis? @ -No Drug Therapy requiring intensive monitoring for toxicity (Heparin, Nitro, Insulin, Cardizem)? @ -No Were any procedures done? @ -No Diagnosis/symptom? @ -Acute epistaxis, acute melena, A-fib with RVR, acute blood loss anemia Acute, or Chronic, or Acute on Chronic? @ -Acute Uncomplicated (without systemic symptoms) or Complicated (systemic symptoms)? @ -Complicated Side effects of treatment? @ -No Exacerbation, Progression, or Severe Exacerbation? @ -No Poses a threat to life or bodily function? How? (Chest pain, USA, ND, pneumonia, PE, COPD, DKA, ARF, appy, cholecystitis, CVA, Diverticulitis, Homicidal, Suicidal, threat to staff... and all critical care pts) @ -Yes as patient is anemic - Lab Data Result diagrams: 11/13/23 06:59 11/13/23 06:59 Lab Results 11/11/23 11/11/23 11/11/23 Range/Units 07:02 07:02 07:02 WBC 9.0 (3.8-10.6) k/uL RBC 3.16 L (4.30-5.90) m/uL Hgb 9.2 L (13.0-17.5) gm/dL Hct 28.5 L (39.0-53.0) % MCV 90.1 (80.0-100.0) fL MCH 29.1 (25.0-35.0) pg MCHC 32.3 (31.0-37.0) g/dL RDW 14.8 (11.5-15.5) % Plt Count 287 (150-450) k/uL MPV 8.6 Neutrophils % 87 % Lymphocytes % 6 % Monocytes % 4 % Eosinophils % 1 % Basophils % 0 % Neutrophils # 7.8 H (1.3-7.7) k/uL Lymphocytes # 0.6 L (1.0-4.8) k/uL Monocytes # 0.4 (0-1.0) k/uL Eosinophils # 0.1 (0-0.7) k/uL Basophils # 0.0 (0-0.2) k/uL Hypochromasia Slight PT 13.7 H (10.0-12.5) sec INR 1.3 H (<1.2) APTT 31.3 H (22.0-30.0) sec Sodium 140 (137-145) mmol/L Potassium 3.7 (3.5-5.1) mmol/L Chloride 112 H (98-107) mmol/L Carbon Dioxide 20 L (22-30) mmol/L Anion Gap 8 mmol/L BUN 18 (9-20) mg/dL Creatinine 0.72 (0.66-1.25) mg/dL Est GFR (CKD-EPI)AfAm >90 (>60 ml/min/1.73 sqM) Est GFR (CKD-EPI)NonAf 85 (>60 ml/min/1.73 sqM) Glucose 192 H (74-99) mg/dL Lactic Ac Sepsis Rflx Plasma Lactic Acid Federico (0.7-2.0) mmol/L Calcium 8.4 (8.4-10.2) mg/dL Magnesium 1.8 (1.6-2.3) mg/dL Total Bilirubin 1.0 (0.2-1.3) mg/dL AST 41 (17-59) U/L ALT 32 (4-49) U/L Alkaline Phosphatase 85 (38-126) U/L Total Protein 5.8 L (6.3-8.2) g/dL Albumin 3.2 L (3.5-5.0) g/dL Stool Occult Blood (Negative) Blood Type Blood Type Confirm Blood Type Recheck Bld Type Recheck Status Antibody Screen Spec Expiration Date 11/11/23 11/11/23 11/11/23 Range/Units 07:02 07:02 07:08 WBC (3.8-10.6) k/uL RBC (4.30-5.90) m/uL Hgb (13.0-17.5) gm/dL Hct (39.0-53.0) % MCV (80.0-100.0) fL MCH (25.0-35.0) pg MCHC (31.0-37.0) g/dL RDW (11.5-15.5) % Plt Count (150-450) k/uL MPV Neutrophils % % Lymphocytes % % Monocytes % % Eosinophils % % Basophils % % Neutrophils # (1.3-7.7) k/uL Lymphocytes # (1.0-4.8) k/uL Monocytes # (0-1.0) k/uL Eosinophils # (0-0.7) k/uL Basophils # (0-0.2) k/uL Hypochromasia PT (10.0-12.5) sec INR (<1.2) APTT (22.0-30.0) sec Sodium (137-145) mmol/L Potassium (3.5-5.1) mmol/L Chloride (98-107) mmol/L Carbon Dioxide (22-30) mmol/L Anion Gap mmol/L BUN (9-20) mg/dL Creatinine (0.66-1.25) mg/dL Est GFR (CKD-EPI)AfAm (>60 ml/min/1.73 sqM) Est GFR (CKD-EPI)NonAf (>60 ml/min/1.73 sqM) Glucose (74-99) mg/dL Lactic Ac Sepsis Rflx Plasma Lactic Acid Federico 4.0 H* (0.7-2.0) mmol/L Calcium (8.4-10.2) mg/dL Magnesium (1.6-2.3) mg/dL Total Bilirubin (0.2-1.3) mg/dL AST (17-59) U/L ALT (4-49) U/L Alkaline Phosphatase (38-126) U/L Total Protein (6.3-8.2) g/dL Albumin (3.5-5.0) g/dL Stool Occult Blood (Negative) Blood Type A Negative Blood Type Confirm A Negative Blood Type Recheck No Previous Record Bld Type Recheck Status CABO Indicated Antibody Screen NEGATIVE Spec Expiration Date 11/14/2023230111/11/23 11/11/23 Range/Units 07:42 08:12 WBC (3.8-10.6) k/uL RBC (4.30-5.90) m/uL Hgb (13.0-17.5) gm/dL Hct (39.0-53.0) % MCV (80.0-100.0) fL MCH (25.0-35.0) pg MCHC (31.0-37.0) g/dL RDW (11.5-15.5) % Plt Count (150-450) k/uL MPV Neutrophils % % Lymphocytes % % Monocytes % % Eosinophils % % Basophils % % Neutrophils # (1.3-7.7) k/uL Lymphocytes # (1.0-4.8) k/uL Monocytes # (0-1.0) k/uL Eosinophils # (0-0.7) k/uL Basophils # (0-0.2) k/uL Hypochromasia PT (10.0-12.5) sec INR (<1.2) APTT (22.0-30.0) sec Sodium (137-145) mmol/L Potassium (3.5-5.1) mmol/L Chloride (98-107) mmol/L Carbon Dioxide (22-30) mmol/L Anion Gap mmol/L BUN (9-20) mg/dL Creatinine (0.66-1.25) mg/dL Est GFR (CKD-EPI)AfAm (>60 ml/min/1.73 sqM) Est GFR (CKD-EPI)NonAf (>60 ml/min/1.73 sqM) Glucose (74-99) mg/dL Lactic Ac Sepsis Rflx Y Plasma Lactic Acid Federico (0.7-2.0) mmol/L Calcium (8.4-10.2) mg/dL Magnesium (1.6-2.3) mg/dL Total Bilirubin (0.2-1.3) mg/dL AST (17-59) U/L ALT (4-49) U/L Alkaline Phosphatase (38-126) U/L Total Protein (6.3-8.2) g/dL Albumin (3.5-5.0) g/dL Stool Occult Blood Positive (Negative) Blood Type Blood Type Confirm Blood Type Recheck Bld Type Recheck Status Antibody Screen Spec Expiration Date Disposition Clinical Impression: Hematemesis, Atrial fibrillation with RVR, Epistaxis, Anemia, Lactic acidosis Disposition: ADMITTED IP TO THIS HOSP Condition: Undetermined Is patient prescribed a controlled substance at d/c from ED?: No Time of Disposition: 08:59 Decision to Admit Reason: Admit from EC Decision Date: 11/11/23 Decision Time: 08:59
[2023-11-11] MEDS ORDERED: NALOXONE 0.4 MG/ML 1 ML VIAL IV PRN (09:00)
[2023-11-11] MEDS: SODIUM CHLORIDE 0.9% 1,000 ML IV SCH (11:12)
[2023-11-11] MEDS ORDERED: ACETAMINOPHEN TAB 325 MG TAB PO PRN (13:29)
--- NOTE | 2023-11-11 13:52 | P.HPIM ---
History of Present Illness H&P Date: 11/11/23 Patient is a 3-year-old male with history of atrial fibrillation on Eliquis, hypertension, osteoarthritis, gout, dementia, BPH presenting with epistaxis and hematochezia. He claims that 2 days ago he developed epistaxis which self resolved, and then recurred last night. He was severely epistaxis leading to him swallowing a lot of blood, which led to hematochezia as well. He claims julius t he saw bright red blood per rectum. He denies any chest pain, shortness of breath, abdominal pain, nausea, vomiting, or urinary complaints. He denies any fevers or chills. He claims that his epistaxis resolved when he came to the hospital. In the ED, temperature was 98, pulse 138, respiratory 22, blood pressure 109/74, saturating at 97% on room air. Hemoglobin 9.2, baseline is around 14. INR 1.3, APTT 31.3, bicarb 20, BUN 18, creatinine 0.72, lactate 4, total magnesium 1.8. GI was consulted. Nose was packed. Patient being admitted for further observation and workup. Pertinent positives and negatives as discussed in HPI, a complete review of systems was performed and all other systems are negative. Patient seen and examined at bedside. Vital signs reviewed General: nontoxic, no distress, appears at stated age Derm: warm, dry Head: atraumatic, normocephalic, symmetric Eyes: EOMI, no lid lag, anicteric sclera, pupils equal round reactive to light ENT: Nasal packing on the right no active bleeding Neck: No thyromegaly, supple Mouth: no lip lesion, mucus membranes moist, no blood noted within the mouth Cardiovascular: S1S2 tachycardic, irregular, no murmur, no edema Lungs: clear to auscultation bilateral, no rhonchi, no rales, no wheeze, no accessory muscle use Abdominal: soft, nontender to palpation, no guarding, no appreciable organomegaly Ext: no gross muscle atrophy, muscle strength muscle strength 5 out of 5 in all 4 extremities, no contractures Neuro: CN II-XII grossly intact Psych: Alert, oriented, appropriate affect Assessment/Plan: Active: Acute GI bleed Bright red blood per rectum Acute epistaxis, resolved Acute blood loss anemia -GI has been consulted, pending recommendations -Keep n.p.o. -Given hemodynamic stability as well as bright red blood per rectum, possibility of lower GI bleed-differential versus acute epistaxis leading to hematochezia. -Repeat hemoglobin this afternoon. -Hold Eliquis -Started on IV pantoprazole 40 twice daily, upper GI bleed not ruled out -Okay to continue normal saline at 130 cc an hour, hold diuretics Atrial fibrillation with RVR -Restarted home metoprolol 50 daily, patient has not received his medications today -Continue telemetry monitoring Resolved: Lactic acidosis Chronic: Hypertension Gout Dyslipidemia Dementia BPH The patient is admitted with an anticipated less than 2 midnight stay as inpati ent status for evaluation of GI bleed. Surrogate decision-maker: Daughter CODE STATUS: Full code DVT prophylaxis: SCDs Anticipated discharge date: Pending clinical course Anticipated discharge place: Pending clinical course A total of 55 minutes was spent on the care of this complex patient more than 50% of the time was spent in counseling and care coordination. Past Medical History Past Medical History: Atrial Fibrillation, CVA/TIA, Hyperlipidemia, Hypertension, Memory Impairment, Osteoarthritis (OA), Prostate Disorder Additional Past Medical History / Comment(s): tia 2008,gout, arthirits lt hip, History of Any Multi-Drug Resistant Organisms: None Reported Past Surgical History: No Surgical Hx Reported Additional Past Surgical History / Comment(s): ebony, cardioversion, colonoscopy/polypectomy-benign Past Anesthesia/Blood Transfusion Reactions: No Reported Reaction Additional Past Anesthesia/Blood Transfusion Reaction / Comment(s): pt lives alone in a single level home, has [address], no home care services, no medical equipment. pt served in the [employer] and [employer]. Past Psychological History: No Psychological Hx Reported Smoking Status: Former smoker Past Alcohol Use History: Rare Past Drug Use History: None Reported - Past Family History Mother Family Medical History: CVA/TIA Father Family Medical History: Myocardial Infarction ([place]) Medications and Allergies Home Medications Medication Instructions Recorded Confirmed Type Metoprolol Succinate (ER) [Toprol 50 mg PO DAILY 10/13/17 11/11/23 History XL] allopurinoL [Zyloprim] 300 mg PO DAILY 10/13/17 11/11/23 History Tamsulosin HCl [Flomax] 0.4 mg PO DAILY 05/07/18 11/11/23 History Apixaban [Eliquis] 5 mg PO BID 07/29/18 11/11/23 History Atorvastatin [Lipitor] 40 mg PO HS 07/29/18 11/11/23 History Olmesartan Medoxomil [Benicar] 40 mg PO DAILY 07/29/18 11/11/23 History amLODIPine [Norvasc] 10 mg PO DAILY 07/29/18 11/11/23 History hydrALAZINE HCL [Apresoline] 50 mg PO TID 07/29/18 11/11/23 History Celecoxib [CeleBREX] 200 mg PO DAILY 11/11/23 11/11/23 History Donepezil 23mg Tab 23 mg PO DAILY 11/11/23 11/11/23 History Fluticasone Nasal [place] [Flonase 1 spray EA NOSTRIL BID PRN 11/11/23 11/11/23 History Nasal [place]] Furosemide [Lasix] 20 mg PO DAILY 11/11/23 11/11/23 History Loratadine [Claritin] 10 mg PO DAILY 11/11/23 11/11/23 History Meloxicam [Mobic] 15 mg PO DAILY 11/11/23 11/11/23 History Potassium Chloride ER [K-Dur 20] 20 meq PO DAILY 11/11/23 11/11/23 History Sildenafil Citrate 50 - 100 mg PO DAILY PRN 11/11/23 11/11/23 History Triamcinolone 0.1% Cream [Kenalog 1 applicatio TOPICAL BID PRN 11/11/23 11/11/23 History 0.1% Cream] hydrOXYzine HCL [Atarax] 25 mg PO HS PRN 11/11/23 11/11/23 History Allergies Allergy/AdvReac Type Severity Reaction Status Date / Time No Known Allergies Allergy Verified 11/11/23 09:44 Physical Exam Vitals: Vital Signs Temp Pulse Resp BP Pulse Ox 11/11/23 11:07 97.9 F 110 H 17 140/88 96 11/11/23 08:45 126 H 22 125/87 95 11/11/23 07:35 97.3 F L 126 H 16 116/76 95 11/11/23 06:55 98.0 F 138 H 22 109/74 97 Intake and Output 11/10/23 11/11/23 11/11/23 22:59 06:59 14:59 Other: Weight 102.512 kg Results CBC & Chem 7: 11/11/23 07:02 11/11/23 07:02 Labs: Abnormal Lab Results - Last 24 Hours (Table) 11/11/23 11/11/23 11/11/23 Range/Units 07:02 07:02 07:02 RBC 3.16 L (4.30-5.90) m/uL Hgb 9.2 L (13.0-17.5) gm/dL Hct 28.5 L (39.0-53.0) % Neutrophils # 7.8 H (1.3-7.7) k/uL Lymphocytes # 0.6 L (1.0-4.8) k/uL PT 13.7 H (10.0-12.5) sec INR 1.3 H (<1.2) APTT 31.3 H (22.0-30.0) sec Chloride 112 H (98-107) mmol/L Carbon Dioxide 20 L (22-30) mmol/L Glucose 192 H (74-99) mg/dL Plasma Lactic Acid Federico (0.7-2.0) mmol/L Total Protein 5.8 L (6.3-8.2) g/dL Albumin 3.2 L (3.5-5.0) g/dL 11/11/23 Range/Units 07:02 RBC (4.30-5.90) m/uL Hgb (13.0-17.5) gm/dL Hct (39.0-53.0) % Neutrophils # (1.3-7.7) k/uL Lymphocytes # (1.0-4.8) k/uL PT (10.0-12.5) sec INR (<1.2) APTT (22.0-30.0) sec Chloride (98-107) mmol/L Carbon Dioxide (22-30) mmol/L Glucose (74-99) mg/dL Plasma Lactic Acid Federico 4.0 H* (0.7-2.0) mmol/L Total Protein (6.3-8.2) g/dL Albumin (3.5-5.0) g/dL
[2023-11-11] MEDS: DONEPEZIL 10 MG TAB PO SCH (14:50)
[2023-11-11] MEDS: HYDROcodone/APAP 5-325MG 1 EACH TAB PO PRN (14:50)
[2023-11-11] MEDS: PANTOPRAZOLE 40 MG/10 ML VIAL IVP SCH (14:51)
[2023-11-11] MEDS: LOSARTAN 50 MG TAB PO SCH (14:52)
[2023-11-11] MEDS: TAMSULOSIN 0.4 MG CAP.ER.24H PO SCH (14:52)
[2023-11-11] MEDS: amLODIPine 10 MG TAB PO SCH (14:52)
[2023-11-11] MEDS: METOPROLOL SUCCINATE (ER) 50 MG TAB.ER.24H PO SCH (14:52)
--- NOTE | 2023-11-11 15:49 | P.CONS ---
History of Present Illness - Reason for Consult Consult date: 11/11/23 Hematochezia Requesting physician: Lakia Santamaria - Chief Complaint Nosebleed - History of Present Illness This is a pleasant 83-year-old male with a history atrial fibrillation on Eliquis who presented to the emergency department by EMS for significant nosebleeding and reported rectal bleeding. Patient states he had a nosebleed that started yesterday which was quite significant and sounds like it went on for hours until today when he came to the emergency department. Apparently patient was covered in blood he had been swallowing blood and could not get the nosebleed to stop. He had a previous nosebleed about a month ago but it had stopped after some pressure was held. Apparently when EMS came to [place] the patient he was walking down the [place] towards the bathroom and was having incontinence with some stool and blood mixed in with the stool. Gastroenterol richa was consulted for hematochezia. Patient states last colonoscopy was about 10 years ago. He denies any abdominal pain, nausea or vomiting. States he did cough up some blood. No previous history of GI bleed. Admitting hemoglobin 9.2 platelets 287,000 INR 1.3, patient also had elevated lactic acid and stool occult blood was positive. Patient currently has nasal Review of Systems REVIEW OF SYSTEMS: CARDIOPULMONARY: No chest pain or shortness of breath. Gastrointestinal: No abdominal pain. No nausea or vomiting. No hematemesis, coffee-ground emesis. Reported rectal bleeding. GENITOURINARY: No dysuria or hematuria. MUSCULOSKELETAL: Reports normal range of motion., Joint pain. SKIN: No rashes. No jaundice. ENDOCRINE: No chills, fevers. No excessive weight gain or loss. No polydipsia or polyuria. PSYCHIATRIC: Unremarkable. NEUROLOGY: No change in mental status. Denies dizziness, headache. ENT: Vision unremarkable. Heavy nosebleed for 1 to 2 days duration. CONSTITUTIONAL: No recent weight loss. No fever, chills, night sweats. Past Medical History Past Medical History: Atrial Fibrillation, CVA/TIA, Hyperlipidemia, Hypertension, Memory Impairment, Osteoarthritis (OA), Prostate Disorder Additional Past Medical History / Comment(s): tia 2008,gout, arthirits lt hip, History of Any Multi-Drug Resistant Organisms: None Reported Past Surgical History: No Surgical Hx Reported Additional Past Surgical History / Comment(s): ebony, cardioversion, colonoscopy/polypectomy-benign Past Anesthesia/Blood Transfusion Reactions: No Reported Reaction Additional Past Anesthesia/Blood Transfusion Reaction / Comm: pt lives alone in a single level home, has [address], no home care services, no medical equipment. pt served in the [employer] and [employer]. Past Psychological History: No Psychological Hx Reported Smoking Status: Former smoker Past Alcohol Use History: Rare Past Drug Use History: None Reported - Past Family History Mother Family Medical History: CVA/TIA Father Family Medical History: Myocardial Infarction (DE) Medications and Allergies Home Medications Medication Instructions Recorded Confirmed Type Metoprolol Succinate (ER) [Toprol 50 mg PO DAILY 10/13/17 11/11/23 History XL] allopurinoL [Zyloprim] 300 mg PO DAILY 10/13/17 11/11/23 History Tamsulosin HCl [Flomax] 0.4 mg PO DAILY 05/07/18 11/11/23 History Apixaban [Eliquis] 5 mg PO BID 07/29/18 11/11/23 History Atorvastatin [Lipitor] 40 mg PO HS 07/29/18 11/11/23 History Olmesartan Medoxomil [Benicar] 40 mg PO DAILY 07/29/18 11/11/23 History amLODIPine [Norvasc] 10 mg PO DAILY 07/29/18 11/11/23 History hydrALAZINE HCL [Apresoline] 50 mg PO TID 07/29/18 11/11/23 History Celecoxib [CeleBREX] 200 mg PO DAILY 11/11/23 11/11/23 History Donepezil 23mg Tab 23 mg PO DAILY 11/11/23 11/11/23 History Fluticasone Nasal [place] [Flonase 1 spray EA NOSTRIL BID PRN 11/11/23 11/11/23 History Nasal [place]] Furosemide [Lasix] 20 mg PO DAILY 11/11/23 11/11/23 History Loratadine [Claritin] 10 mg PO DAILY 11/11/23 11/11/23 History Meloxicam [Mobic] 15 mg PO DAILY 11/11/23 11/11/23 History Potassium Chloride ER [K-Dur 20] 20 meq PO DAILY 11/11/23 11/11/23 History Sildenafil Citrate 50 - 100 mg PO DAILY PRN 11/11/23 11/11/23 History Triamcinolone 0.1% Cream [Kenalog 1 applicatio TOPICAL BID PRN 11/11/23 11/11/23 History 0.1% Cream] hydrOXYzine HCL [Atarax] 25 mg PO HS PRN 11/11/23 11/11/23 History Allergies Allergy/AdvReac Type Severity Reaction Status Date / Time No Known Allergies Allergy Verified 11/11/23 09:44 Physical Exam Vitals: Vital Signs Temp Pulse Resp BP Pulse Ox 11/11/23 08:45 126 H 22 125/87 95 11/11/23 07:35 97.3 F L 126 H 16 116/76 95 11/11/23 06:55 98.0 F 138 H 22 109/74 97 Intake and Output 11/10/23 11/11/23 11/11/23 22:59 06:59 14:59 Other: Weight 102.512 kg General appearance: The patient is alert, oriented, appears in no acute distress. HET: Head is normocephalic and atraumatic. Conjunctiva pink. Sclera anicteric. Nasal packing on right. Neck: Supple without lymphadenopathy. Trachea midline. Heart: Regular. Lungs: Equal expansion, normal respiratory effort. Abdomen: Soft, nontender, nondistended. Skin: No rashes. No jaundice. Extremities: Normal skin color and turgor. No pedal edema. Neurological: No focal deficits. Alert and oriented x3. Results CBC & Chem 7: 11/11/23 07:02 11/11/23 07:02 Labs: Abnormal Lab Results - Last 24 Hours (Table) 11/11/23 11/11/23 11/11/23 Range/Units 07:02 07:02 07:02 RBC 3.16 L (4.30-5.90) m/uL Hgb 9.2 L (13.0-17.5) gm/dL Hct 28.5 L (39.0-53.0) % Neutrophils # 7.8 H (1.3-7.7) k/uL Lymphocytes # 0.6 L (1.0-4.8) k/uL PT 13.7 H (10.0-12.5) sec INR 1.3 H (<1.2) APTT 31.3 H (22.0-30.0) sec Chloride 112 H (98-107) mmol/L Carbon Dioxide 20 L (22-30) mmol/L Glucose 192 H (74-99) mg/dL Plasma Lactic Acid Federico (0.7-2.0) mmol/L Total Protein 5.8 L (6.3-8.2) g/dL Albumin 3.2 L (3.5-5.0) g/dL 11/11/23 Range/Units 07:02 RBC (4.30-5.90) m/uL Hgb (13.0-17.5) gm/dL Hct (39.0-53.0) % Neutrophils # (1.3-7.7) k/uL Lymphocytes # (1.0-4.8) k/uL PT (10.0-12.5) sec INR (<1.2) APTT (22.0-30.0) sec Chloride (98-107) mmol/L Carbon Dioxide (22-30) mmol/L Glucose (74-99) mg/dL Plasma Lactic Acid Federico 4.0 H* (0.7-2.0) mmol/L Total Protein (6.3-8.2) g/dL Albumin (3.5-5.0) g/dL Assessment and Plan (1) Rectal bleeding Narrative/Plan: 83-year-old male presenting with significant nosebleed for 1 to 2 days duration for which she states that he swallowed quite a bit of blood and subsequently EMS was called when bleeding would not stop. At this send patient with history of atrial fibrillation on Eliquis. It was noted that patient was walking down the hallway and had some loss of continence and stool mixed with some blood. This is likely secondary to significant epistaxis and swallowing large amounts of blood. Patient without any previous history of GI bleed. No further rectal bleeding. Nosebleed has stopped since packing was placed and right side. No plans on endoscopic evaluation again likely secondary to significant epistaxis and swallowing blood. Would recommend considering ENT evaluation for nosebleed. Current Visit: Yes Status: Acute Code(s): K62.5 - HEMORRHAGE OF ANUS AND RECTUM SNOMED Code(s): 55288760 (2) History of atrial fibrillation Current Visit: Yes Status: Acute Code(s): Z86.79 - PERSONAL HISTORY OF OTHER DISEASES OF THE CIRCULATORY SYSTEM SNOMED Code(s): 438105351 (3) Anemia Narrative/Plan: Likely secondary to acute blood loss from epistaxis. Current Visit: Yes Status: Acute Code(s): D64.9 - ANEMIA, UNSPECIFIED SNOMED Code(s): 973691600 (4) Epistaxis Current Visit: Yes Status: Acute Code(s): R04.0 - EPISTAXIS SNOMED C ode(s): 827740151 Plan: 1. Continue symptomatic and supportive care 2. Diet as tolerated 3. Daily CBC, transfuse for hemoglobin less than 7 4. No plans on endoscopic evaluation lower GI bleed likely secondary to significant epistaxis and swallowing blood 5. Consider possible ENT consultation for epistaxis 6. Recommend holding anticoagulation for another 1 to 2 days Thank you for this consultation, we will continue to follow. Dr. Tanvi Stephen I agree with the dictator's note, documented as a scribe by Ethel Meyers.
[2023-11-11] MEDS: hydrALAZINE HCL 50 MG TAB PO SCH (18:21)
[2023-11-11 19:10] LABS: HCT 26.2 % (39.0-53.0); HGB 8.3 gm/dL (13.0-17.5); Hypochromasia Slight; MCH 28.6 pg (25.0-35.0); MCHC 31.8 g/dL (31.0-37.0); MCV 89.8 fL (80.0-100.0); Mean Platelet Volume 8.6; Platelet Count 210 k/uL (150-450); RBC 2.92 m/uL (4.30-5.90); RDW 14.8 % (11.5-15.5); WBC 3.7 k/uL (3.8-10.6)
[2023-11-11] MEDS: ATORVASTATIN 40 MG TAB PO SCH (20:22)
[2023-11-12] MEDS: LORATADINE 10 MG TAB PO SCH (08:55)
[2023-11-12] MEDS: allopurinoL 300 MG TAB PO SCH (08:55)
--- NOTE | 2023-11-12 11:57 | P.PN ---
Subjective Progress Note Date: 11/12/23 Principal diagnosis: Epistaxis This is a pleasant 83-year-old male with a history atrial fibrillation on Eliquis who presented to the emergency department by EMS for significant n osebleeding and reported rectal bleeding. Patient states he had a nosebleed that started yesterday which was quite significant and sounds like it went on for hours until today when he came to the emergency department. Apparently patient was covered in blood he had been swallowing blood and could not get the nosebleed to stop. He had a previous nosebleed about a month ago but it had stopped after some pressure was held. Apparently when EMS came to [place] the patient he was walking down the [place] towards the bathroom and was having incontinence with some stool and blood mixed in with the stool. Gastroenterology was consulted for hematochezia. Patient states last colonoscopy was about 10 years ago. He denies any abdominal pain, nausea or vomiting. States he did cough up some blood. No previous history of GI bleed. Admitting hemoglobin 9.2 platelets 287,000 INR 1.3, patient also had elevated lactic acid and stool occult blood was positive. Patient currently has nasal 11/12/2023 Patient is seen and examined today as a follow-up. He states that he is feeling well today. No further bleeding from his nose. Still has packing in right side and nose. Denies any bleeding from the rectum or bloody bowel movements. Denies abdominal pain, nausea or vomiting. He did have a drop in his hemoglobin from 9.2-8.3 today. independent living specialist was consulted. Objective - Vital Signs Vital signs: Vital Signs Temp 98.0 F 11/12/23 08:00 Pulse 79 11/12/23 08:00 Resp 16 11/12/23 08:00 BP 151/78 11/12/23 08:00 Pulse Ox 95 11/12/23 08:00 FiO2 Intake & Output 11/11/23 11/12/23 11/12/23 18:59 06:59 18:59 Intake Total 356 Output Total 200 500 Balance -200 -144 Weight 102.512 kg 93.3 kg Intake: Oral 356 Output: Urine 200 500 Other: Voiding Method Toilet # Voids 1 - Exam General appearance: The patient is alert, oriented, appears in no acute distress. HET: Head is normocephalic and atraumatic. Conjunctiva pink. Sclera anicteric. Packing in right nare. Neck: Supple without lymphadenopathy. Abdomen: Soft, nontender, nondistended with bowel sounds. No guarding or rigidity. Extremities: Normal skin color and turgor. No pedal edema Skin: No rashes, no jaundice Neurological: No focal deficits. Alert and oriented. - Labs CBC & Chem 7: 11/11/23 18:36 11/11/23 07:02 Labs: Abnormal Lab Results - Last 24 Hours (Table) 11/11/23 Range/Units 18:36 WBC 3.7 L (3.8-10.6) k/uL RBC 2.92 L (4.30-5.90) m/uL Hgb 8.3 L (13.0-17.5) gm/dL Hct 26.2 L (39.0-53.0) % Assessment and Plan (1) Rectal bleeding Narrative/Plan: 83-year-old male presenting with significant nosebleed for 1 to 2 days duration for which she states that he swallowed quite a bit of blood and subsequently EMS was called when bleeding would not stop. At this send patient with history of atrial fibrillation on Eliquis. It was noted that patient was walking down the hallway and had some loss of continence and stool mixed with some blood. This is likely secondary to significant epistaxis and swallowing large amounts of blood. Patient without any previous history of GI bleed. No further rectal bleeding. Nosebleed has stopped since packing was placed and right side. No plans on endoscopic evaluation again likely secondary to significant epistaxis and swallowing blood. Would recommend considering ENT evaluation for nosebleed. Continues with no lower GI bleed. Again blood in stool was likely secondary from severe epistaxis. No plans on endoscopic evaluation. Current Visit: Yes Status: Acute Code(s): K62.5 - HEMORRHAGE OF ANUS AND RECTUM SNOMED Code(s): 55412468 (2) History of atrial fibrillation Current Visit: Yes Status: Acute Code(s): Z86.79 - PERSONAL HISTORY OF OTHER DISEASES OF THE CIRCULATORY SYSTEM SNOMED Code(s): 644403940 (3) Anemia Narrative/Plan: Likely secondary to acute blood loss from epistaxis. Current Visit: Yes Status: Acute Code(s): D64.9 - ANEMIA, UNSPECIFIED SNOMED Code(s): 197547567 (4) Epistaxis Narrative/Plan: ENT consulted Current Visit: Yes Status: Acute Code(s): R04.0 - EPISTAXIS SNOMED C ode(s): 474452428 Plan: 1. Continue symptomatic and supportive care 2. Diet as tolerated 3. No plans on endoscopic evaluation lower GI bleed likely secondary to significant epistaxis and swallowing blood 4. Consider possible ENT consultation for epistaxis 5. May resume anticoagulation if cleared by ENT Thank you for this consultation, we will sign off at this time. Dr. Tanvi Stephen I agree with the dictator's note, documented as a scribe by Ethel BOGGS C.
[2023-11-12 12:05] LABS: Basophils % (A) 1 %; Eosinophils # (A) 0.1 k/uL (0-0.7); Eosinophils % (A) 3 %; HCT 27.5 % (39.0-53.0); HGB 8.6 gm/dL (13.0-17.5); Hypochromasia Slight; Lymphocytes # (A) 0.4 k/uL (1.0-4.8); Lymphocytes % (A) 10 %; MCH 28.1 pg (25.0-35.0); MCHC 31.2 g/dL (31.0-37.0); MCV 89.9 fL (80.0-100.0); Mean Platelet Volume 8.3; Monocytes # (A) 0.3 k/uL (0-1.0); Monocytes % (A) 7 %; Neutrophils # (A) 3.3 k/uL (1.3-7.7); Neutrophils % (A) 78 %; Platelet Count 221 k/uL (150-450); RBC 3.06 m/uL (4.30-5.90); RDW 14.6 % (11.5-15.5); WBC 4.2 k/uL (3.8-10.6)
[2023-11-12 12:55] LABS: African American GFR (CKD) >90 (>60 ml/min/1.73 sqM); Anion Gap 7 mmol/L; Blood Urea Nitrogen 15 mg/dL (9-20); Calcium 8.2 mg/dL (8.4-10.2); Carbon Dioxide 22 mmol/L (22-30); Chloride 110 mmol/L (98-107); Glucose 135 mg/dL (74-99); Non-African American GFR(CKD) 84 (>60 ml/min/1.73 sqM); Potassium 3.6 mmol/L (3.5-5.1); Sodium 139 mmol/L (137-145)
--- NOTE | 2023-11-12 14:20 | P.PN ---
Subjective Progress Note Date: 11/12/23 Hospital Course: 83-year-old male with history of atrial fibrillation on Eliquis, hypertension, osteoarthritis, gout, dementia, BPH presenting with epistaxis and hematochezia. In the ED, temperature was 98, pulse 138, respiratory 22, blood pressure 109/74, saturating at 97% on room air. Hemoglobin 9.2, baseline is around 14. INR 1.3, APTT 31.3, bicarb 20, BUN 18, creatinine 0.72, lactate 4, total magnesium 1.8. GI was consulted. Nose was packed. Patient being admitted for further obser vation and workup. Hemoglobin stable, GI recommending ENT consult. Subjective: Patient seen and examined at bedside. No acute events overnight. Pertinent positives and negatives as discussed above, a complete review of systems was performed and all other systems are negative. Vitals Signs Reviewed. General: nontoxic, no distress, appears at stated age Derm: warm, dry Head: atraumatic, normocephalic, symmetric Eyes: EOMI, no lid lag, anicteric sclera, pupils equal round reactive to light ENT: Nasal packing on the right no active bleeding Neck: No thyromegaly, supple Mouth: no lip lesion, mucus membranes moist, no blood noted within the mouth Cardiovascular: S1S2 tachycardic, irregular, no murmur, no edema Lungs: clear to auscultation bilateral, no rhonchi, no rales, no wheeze, no accessory muscle use Abdominal: soft, nontender to palpation, no guarding, no appreciable organome anne Ext: no gross muscle atrophy, muscle strength muscle strength 5 out of 5 in all 4 extremities, no contractures Neuro: CN II-XII grossly intact Psych: Alert, oriented, appropriate affect Data Reviewed Today: Pertinent Labs: Hemoglobin 8.6, creatinine 0.74 Imaging: No new imaging Assessment and Plan: Active: Suspected acute GI bleed Bright red blood per rectum Acute epistaxis, resolved Acute blood loss anemia, resolving -GI note reviewed, no endoscopic evaluation, ENT consultation -Hemoglobin stable -Hold Eliquis, pending ENT evaluation -IV pantoprazole discontinued -Hold fluids and diuretics Atrial fibrillation with RVR, now rate controlled -Continue home metoprolol 50 -Continue telemetry monitoring Resolved: Lactic acidosis Chronic: Hypertension Gout Dyslipidemia Dementia BPH DVT ppx: SCDs Code status: Full code Anticipated discharge place: Pending clinical course Anticipated discharge time: Pending clinical course Objective - Vital Signs Vital signs: Vital Signs Temp 98.1 F 11/12/23 11:32 Pulse 86 11/12/23 13:38 Resp 16 11/12/23 13:38 BP 126/74 11/12/23 11:32 Pulse Ox 96 11/12/23 11:32 FiO2 Intake & Output 11/11/23 11/12/23 11/12/23 18:59 06:59 18:59 Intake Total 356 Output Total 200 500 Balance -200 -144 Weight 102.512 kg 93.3 kg Intake: Oral 356 Output: Urine 200 500 Other: Voiding Method Toilet Toilet # Voids 1 - Labs CBC & Chem 7: 11/12/23 10:47 11/12/23 10:47 Labs: Abnormal Lab Results - Last 24 Hours (Table) 11/11/23 11/12/23 11/12/23 Range/Units 18:36 10:47 10:47 WBC 3.7 L (3.8-10.6) k/uL RBC 2.92 L 3.06 L (4.30-5.90) m/uL Hgb 8.3 L 8.6 L (13.0-17.5) gm/dL Hct 26.2 L 27.5 L (39.0-53.0) % Lymphocytes # 0.4 L (1.0-4.8) k/uL Chloride 110 H (98-107) mmol/L Glucose 135 H (74-99) mg/dL Calcium 8.2 L (8.4-10.2) mg/dL
[2023-11-12 19:12] LABS: HCT 25.4 % (39.0-53.0); HGB 8.1 gm/dL (13.0-17.5); Hypochromasia Slight; MCH 28.7 pg (25.0-35.0); MCV 89.6 fL (80.0-100.0); Mean Platelet Volume 10.8; Platelet Count 176 k/uL (150-450); RBC 2.83 m/uL (4.30-5.90); RDW 14.8 % (11.5-15.5); WBC 4.6 k/uL (3.8-10.6)
[2023-11-12] MEDS: PANTOPRAZOLE 40 MG/10 ML VIAL IVP SCH (20:46)
[2023-11-13 07:32] LABS: Basophils % (A) 1 %; Eosinophils # (A) 0.1 k/uL (0-0.7); Eosinophils % (A) 3 %; HCT 26.7 % (39.0-53.0); HGB 8.6 gm/dL (13.0-17.5); Lymphocytes # (A) 0.6 k/uL (1.0-4.8); Lymphocytes % (A) 13 %; MCH 28.6 pg (25.0-35.0); MCHC 32.1 g/dL (31.0-37.0); MCV 89.2 fL (80.0-100.0); Monocytes # (A) 0.3 k/uL (0-1.0); Monocytes % (A) 6 %; Neutrophils # (A) 3.6 k/uL (1.3-7.7); Neutrophils % (A) 77 %; Platelet Count 229 k/uL (150-450); WBC 4.6 k/uL (3.8-10.6)
[2023-11-13 07:48] LABS: African American GFR (CKD) >90 (>60 ml/min/1.73 sqM); Anion Gap 4 mmol/L; Blood Urea Nitrogen 10 mg/dL (9-20); Calcium 8.5 mg/dL (8.4-10.2); Carbon Dioxide 26 mmol/L (22-30); Chloride 109 mmol/L (98-107); Glucose 108 mg/dL (74-99); Non-African American GFR(CKD) >90 (>60 ml/min/1.73 sqM); Potassium 3.5 mmol/L (3.5-5.1); Sodium 139 mmol/L (137-145)
[2023-11-13 08:04] VITALS: RESP 16
[2023-11-13] MEDS: METOPROLOL SUCCINATE (ER) 25 MG TAB.ER.24H PO STA (12:14)
--- NOTE | 2023-11-13 12:44 | CDI ---
Documentation Clarification Form Date: 11/13/2023 From: Abigail Tellez Phone: [phone] Admit Date: 11/11/2023 09:01:00 AM Patient Name: Thomas Pierre Visit Number: [id number] Discharge Date: ATTENTION: The Clinical Documentation Specialists (CDI) and [facility] Coding Staff appreciate your assistance in clarifying documentation. Please respond to the clarification below the line at the bottom and electronically sign. The CDI & [facility] Coding staff will review the response and follow-up if needed. Please note: Queries are made part of the Legal Health Record. If you have any questions, please contact the author of this message via ITS. Dr. Omar Dodson: There is documentation of Epistaxis and hematochezia in the H&P 11/10. Based on this information and the findings below, is there an additional diagnosis that is clinically appropriate for this patient? History/Risk Factors: 83-year-old male with a history of AFib on Eliquis, HTN who presented with epistaxis and hematochezia, with a history of epistaxis about month ago that stopped with pressure Clinical Indicators: 11/10 GI consult, Plan: "4. No plans on endoscopic evaluation lower GI bleed likely secondary to significant epistaxis and swallowing blood. 6. Recommend holding anticoagulation for another 1 to 2 days." 11/10 PT: 13.7 INR: 1.3 APTT: 31.3 Treatment: Hold home dose of Eliquis 5mg oral BID-last dose 11/09 Bilateral nasal packing Tranexamic Acid 1000mg IV once 11/10 Normal Saline IV 130cc/hour 11/10-11/11 Is there an additional diagnosis that is clinically appropriate for this patient? [ x ] Hemorrhage due to Eliquis [ ] Other, please specify [ ] Unable to determine MTDD
--- NOTE | 2023-11-13 13:05 | P.CRDCN ---
History of Present Illness Consult date: 11/13/23 Reason for Consult (text): A-fib with RVR History of present illness: This is an 83-year-old male patient of Dr. Cueto with past medical history of paroxysmal atrial fibrillation, hypertension, chronic diastolic heart failure, osteoarthritis, TIA, mild dementia, mild carotid artery stenosis, hyperlipidemia. We have been asked to evaluate the patient for A-fib with RVR. Patient presented to the hospital due to epistaxis and now there is concern the patient has rectal bleeding. Apparently had some bright red blood from the rectum. Patient had episode this morning of heart rate up to the 160s. Patient denies having any loss of consciousness noted, no chest pain, no shortness of breath. He has been on Eliquis at home and also was taking Mobic at home. Daughter at the bedside states that patient had episode of confusion last e vening which seems to have resolved today. EKG: Atrial fibrillation at 143 bpm Laboratory studies: WBC 4.6, hemoglobin 8.6. Sodium 139, potassium 3.5, BUN 10 and creatinine 0.62. Home cardiac medications: Amlodipine 10 mg daily, Eliquis 5 mg twice daily, atorvastatin 40 mg at bedtime, Lasix 20 mg daily, Toprol-XL 50 mg daily, Benicar 40 mg daily, potassium chloride 20 mill equivalents daily. Echocardiogram performed in the office on 02/17/2020 revealed normal LV size and function. Mild tricuspid regurgitation. Cardiolite stress test performed in the office on 12/17/2017 revealed normal myocardial perfusion study. Gated SPECT analysis reveals an EF of 61%. EKG portion of the stress test does not show any evidence of ischemia. Review Of Systems: At the time of my exam: CONSTITUTIONAL: Denies fever or chills. HEENT: Denies blurred vision, vision changes, or eye pain. Denies hemoptysis CARDIOVASCULAR: Denies chest pain. Denies orthopnea. Denies PND. Denies palpitations RESPIRATORY: Denies shortness of breath. GASTROINTESTINAL: Denies abdominal pain. Denies nausea or vomiting. HEMATOLOGIC: Denies bleeding disorders. GENITOURINARY: Denies any blood in urine. SKIN: Denies puritis. Denies rash. Physical examination: Gen: This is an 83-year-old male in no acute distress VS: reviewed HEENT: Head is atraumatic, normocephalic. Pupils equal, round. Sclerae is anicteric. NECK: Supple. No JVD. LUNGS: Clear to auscultation. No wheezes or rhonchi. No intercostal retractions. HEART: Irregular rate and rhythm. No murmur. ABDOMEN: Soft No tenderness. EXTREMITIES: No pedal edema. No calf tenderness. NEUROLOGICAL: Patient is awake, alert and oriented x3. Assessment: Paroxysmal atrial fibrillation with episode of RVR, currently rate controlled Epistaxis Rectal bleeding Acute blood loss anemia Hypertension Chronic diastolic heart failure Hyperlipidemia Mild carotid artery stenosis History of TIA Mild dementia Plan: Resume patient's home cardiac medications Increase Toprol-XL to 75 mg daily Continue telemetry monitoring Continue to hold Eliquis GI workup in progress Further recommendations to follow based upon clinical course Thank you kindly for this consultation. Nurse practitioner note has been reviewed, I agree with documented findings and plan of care. Patient was seen and examined. Past Medical History Past Medical History: Atrial Fibrillation, CVA/TIA, Hyperlipidemia, Hypertension, Memory Impairment, Osteoarthritis (OA), Prostate Disorder Additional Past Medical History / Comment(s): tia 2008,gout, arthirits lt hip, History of Any Multi-Drug Resistant Organisms: None Reported Past Surgical History: No Surgical Hx Reported Additional Past Surgical History / Comment(s): ebony, cardioversion, colonoscopy/polypectomy-benign Past Anesthesia/Blood Transfusion Reactions: No Reported Reaction Additional Past Anesthesia/Blood Transfusion Reaction / Comment(s): pt lives alone in a single level home, has [address], no home care services, no medical equipment. pt served in the [employer] and [employer]. Past Psychological History: No Psychological Hx Reported Smoking Status: Former smoker Past Alcohol Use History: Rare Past Drug Use History: None Reported - Past Family History Mother Family Medical History: CVA/TIA Father Family Medical History: Myocardial Infarction ([place]) Medications and Allergies Home Medications Medication Instructions Recorded Confirmed Type Metoprolol Succinate (ER) [Toprol 50 mg PO DAILY 10/13/17 11/11/23 History XL] allopurinoL [Zyloprim] 300 mg PO DAILY 10/13/17 11/11/23 History Tamsulosin HCl [Flomax] 0.4 mg PO DAILY 05/07/18 11/11/23 History Apixaban [Eliquis] 5 mg PO BID 07/29/18 11/11/23 History Atorvastatin [Lipitor] 40 mg PO HS 07/29/18 11/11/23 History Olmesartan Medoxomil [Benicar] 40 mg PO DAILY 07/29/18 11/11/23 History amLODIPine [Norvasc] 10 mg PO DAILY 07/29/18 11/11/23 History hydrALAZINE HCL [Apresoline] 50 mg PO TID 07/29/18 11/11/23 History Celecoxib [CeleBREX] 200 mg PO DAILY 11/11/23 11/11/23 History Donepezil 23mg Tab 23 mg PO DAILY 11/11/23 11/11/23 History Fluticasone Nasal [place] [Flonase 1 spray EA NOSTRIL BID PRN 11/11/23 11/11/23 History Nasal [place]] Furosemide [Lasix] 20 mg PO DAILY 11/11/23 11/11/23 History Loratadine [Claritin] 10 mg PO DAILY 11/11/23 11/11/23 History Meloxicam [Mobic] 15 mg PO DAILY 11/11/23 11/11/23 History Potassium Chloride ER [K-Dur 20] 20 meq PO DAILY 11/11/23 11/11/23 History Sildenafil Citrate 50 - 100 mg PO DAILY PRN 11/11/23 11/11/23 History Triamcinolone 0.1% Cream [Kenalog 1 applicatio TOPICAL BID PRN 11/11/23 11/11/23 History 0.1% Cream] hydrOXYzine HCL [Atarax] 25 mg PO HS PRN 11/11/23 11/11/23 History Allergies Allergy/AdvReac Type Severity Reaction Status Date / Time No Known Allergies Allergy Verified 11/11/23 09:44 Physical Exam Vitals: Vital Signs Temp Pulse Resp BP Pulse Ox 11/13/23 11:25 98.5 F 95 16 136/78 96 11/13/23 08:00 97.6 F 92 16 141/89 95 11/13/23 03:44 113 H 18 160/79 95 11/13/23 02:00 98 18 11/13/23 00:00 98 18 160/78 95 11/12/23 20:00 98.0 F 84 18 142/76 93 L 11/12/23 16:00 81 16 138/73 95 11/12/23 13:38 86 16 Intake and Output 11/12/23 11/13/23 11/13/23 22:59 06:59 14:59 Intake Total 1396 240 Output Total 150 Balance 1246 240 Intake: Intake, IV Titration 1040 Amount Sodium Chloride 0.9% 1, 1040 000 ml @ 130 mls/hr IV . Q7H42M [facility] Rx#:[id number] Oral 356 240 Output: Urine 150 Other: Voiding Method Toilet Toilet # Voids 4 Results 11/13/23 06:59 11/13/23 06:59 CBC 11/12/23 11/12/23 11/13/23 Range/Units 10:47 18:59 06:59 WBC 4.2 4.6 4.6 (3.8-10.6) k/uL RBC 3.06 L 2.83 L 3.00 L (4.30-5.90) m/uL Hgb 8.6 L 8.1 L 8.6 L (13.0-17.5) gm/dL Hct 27.5 L 25.4 L 26.7 L (39.0-53.0) % Plt Count 221 176 229 (150-450) k/uL Comprehensive Metabolic Panel 11/12/23 11/13/23 Range/Units 10:47 06:59 Sodium 139 139 (137-145) mmol/L Potassium 3.6 3.5 (3.5-5.1) mmol/L Chloride 110 H 109 H (98-107) mmol/L Carbon Dioxide 22 26 (22-30) mmol/L BUN 15 10 (9-20) mg/dL Creatinine 0.74 0.62 L (0.66-1.25) mg/dL Glucose 135 H 108 H (74-99) mg/dL Calcium 8.2 L 8.5 (8.4-10.2) mg/dL Current Medications Generic Name Dose Route Start Last Admin Trade Name Freq PRN Reason Stop Dose Admin Acetaminophen 650 mg 11/11/23 13:29 Acetaminophen Tab 325 Mg Tab PO Q6HR PRN Fever and/ or Pain Hydrocodone Bitart/Acetaminophen 1 each 11/11/23 13:28 11/13/23 03:40 Hydrocodone/Apap 5-325mg 1 Each Tab PO 1 each Q6HR PRN Administration Moderate to Severe Pain (4-10) Allopurinol 300 mg 11/12/23 09:00 11/13/23 08:15 Allopurinol 300 Mg Tab PO 300 mg DAILY CHAITANYA Administration Amlodipine Besylate 10 mg 11/11/23 13:30 11/13/23 08:15 Amlodipine 10 Mg Tab PO 10 mg DAILY CHAITANYA Administration Atorvastatin Calcium 40 mg 11/11/23 21:00 11/12/23 20:46 Atorvastatin 40 Mg Tab PO 40 mg HS CHAITANYA Administration Donepezil HCl 10 mg 11/11/23 13:30 11/13/23 08:15 Donepezil 10 Mg Tab PO 10 mg DAILY CHAITANYA Administration Hydralazine HCl 50 mg 11/11/23 16:00 11/13/23 08:15 Hydralazine Hcl 50 Mg Tab PO 50 mg TID CHAITANYA Administration Loratadine 10 mg 11/12/23 09:00 11/13/23 08:15 Loratadine 10 Mg Tab PO 10 mg DAILY CHAITANYA Administration Losartan Potassium 150 mg 11/11/23 13:30 11/13/23 08:15 Losartan 50 Mg Tab PO 150 mg DAILY CHAITANYA Administration Metoprolol Succinate 50 mg 11/11/23 13:30 11/13/23 08:15 Metoprolol Succinate (Er) 50 Mg Tab.Er.24h PO 50 mg DAILY CHAITANYA Administration Naloxone HCl 0.2 mg 11/11/23 09:00 Naloxone 0.4 Mg/Ml 1 Ml Vial IV Q2M PRN Opioid Reversal Pantoprazole Sodium 40 mg 11/12/23 21:00 11/13/23 08:14 Pantoprazole 40 Mg/10 Ml Vial IVP 40 mg BID CHAITANYA Administration Tamsulosin HCl 0.4 mg 11/11/23 13:30 11/13/23 08:15 Tamsulosin 0.4 Mg Cap.Er.24h PO 0.4 mg DAILY CHAITANYA Administration Intake and Output 11/12/23 11/13/23 11/13/23 22:59 06:59 14:59 Intake Total 1396 240 Output Total 150 Balance 1246 240 Intake: Intake, IV Titration 1040 Amount Sodium Chloride 0.9% 1, 1040 000 ml @ 130 mls/hr IV . Q7H42M [facility] Rx#:[id number] Oral 356 240 Output: Urine 150 Other: Voiding Method Toilet Toilet # Voids 4 11/13/23 06:59 11/13/23 06:59
--- NOTE | 2023-11-13 13:52 | P.PN ---
Subjective Progress Note Date: 11/13/23 Principal diagnosis: Epistaxis This is a pleasant 83-year-old male with a history atrial fibrillation on Eliquis who presented to the emergency department by EMS for significant n osebleeding and reported rectal bleeding. Patient states he had a nosebleed that started yesterday which was quite significant and sounds like it went on for hours until today when he came to the emergency department. Apparently patient was covered in blood he had been swallowing blood and could not get the nosebleed to stop. He had a previous nosebleed about a month ago but it had stopped after some pressure was held. Apparently when EMS came to pick up and delivery driver the patient he was walking down the [place] towards the bathroom and was having incontinence with some stool and blood mixed in with the stool. Gastroenterology was consulted for hematochezia. Patient states last colonoscopy was about 10 years ago. He denies any abdominal pain, nausea or vomiting. States he did cough up some blood. No previous history of GI bleed. Admitting hemoglobin 9.2 platelets 287,000 INR 1.3, patient also had elevated lactic acid and stool occult blood was positive. Patient currently has nasal 11/12/2023 Patient is seen and examined today as a follow-up. He states that he is feeling well today. No further bleeding from his nose. Still has packing in right side and nose. Denies any bleeding from the rectum or bloody bowel movements. Denies abdominal pain, nausea or vomiting. He did have a drop in his hemoglobin from 9.2-8.3 today. permit specialist was consulted. 11/13/2023 Patient seen and examined today as a follow-up. He still has packing in the right side of his nose. Nursing reported that he had 4 bowel movements yesterday with maroon-colored clots and 1 with some bright red blood. Patient had a small bowel movement this morning which was reported as dark. Hemoglobin stable at 8.6. He denies any abdominal pain, nausea or vomiting. Eliquis remains on hold. Ear nose and throat was consulted however he was not available and they are consulting another group. Nursing also reports that patient has been having tachycardia and with any movement has heart rate is going up into the 170s to 180s. Patient denies any shortness of breath or chest pain. Does have a history of atrial fibrillation. Apparently patient was also confused during the night. Objective - Vital Signs Vital signs: Vital Signs Temp 97.6 F 11/13/23 08:00 Pulse 92 11/13/23 08:00 Resp 16 11/13/23 08:00 BP 141/89 11/13/23 08:00 Pulse Ox 95 11/13/23 08:00 FiO2 Intake & Output 11/12/23 11/13/23 11/13/23 18:59 06:59 18:59 Intake Total 2108 240 Output Total 500 150 Balance 1608 -150 240 Intake: Intake, IV Titration 1040 Amount Sodium Chloride 0.9% 1, 1040 000 ml @ 130 mls/hr IV . Q7H42M [facility] Rx#:[id number] Oral 1068 240 Output: Urine 500 150 Other: Voiding Method Toilet Toilet # Voids 4 - Exam General appearance: The patient is alert, oriented, appears in no acute dis tress. HET: Head is normocephalic and atraumatic. Conjunctiva pink. Sclera anicteric. Packing in right nare. Neck: Supple without lymphadenopathy. Abdomen: Soft, nontender, nondistended with bowel sounds. No guarding or rigidity. Extremities: Normal skin color and turgor. No pedal edema Skin: No rashes, no jaundice Neurological: No focal deficits. Alert and oriented. - Labs CBC & Chem 7: 11/13/23 06:59 11/13/23 06:59 Labs: Abnormal Lab Results - Last 24 Hours (Table) 11/12/23 11/12/23 11/12/23 Range/Units 10:47 10:47 18:59 RBC 3.06 L 2.83 L (4.30-5.90) m/uL Hgb 8.6 L 8.1 L (13.0-17.5) gm/dL Hct 27.5 L 25.4 L (39.0-53.0) % Lymphocytes # 0.4 L (1.0-4.8) k/uL Chloride 110 H (98-107) mmol/L Creatinine (0.66-1.25) mg/dL Glucose 135 H (74-99) mg/dL Calcium 8.2 L (8.4-10.2) mg/dL 11/13/23 11/13/23 Range/Units 06:59 06:59 RBC 3.00 L (4.30-5.90) m/uL Hgb 8.6 L (13.0-17.5) gm/dL Hct 26.7 L (39.0-53.0) % Lymphocytes # 0.6 L (1.0-4.8) k/uL Chloride 109 H (98-107) mmol/L Creatinine 0.62 L (0.66-1.25) mg/dL Glucose 108 H (74-99) mg/dL Calcium (8.4-10.2) mg/dL Assessment and Plan (1) Rectal bleeding Narrative/Plan: 83-year-old male presenting with significant nosebleed for 1 to 2 days duration for which she states that he swallowed quite a bit of blood and subsequently EMS was called when bleeding would not stop. At this send patient with history of atrial fibrillation on Eliquis. It was noted that patient was walking down the hallway and had some loss of continence and stool mixed with some blood. This is likely secondary to significant epistaxis and swallowing large amounts of blood. Patient without any previous history of GI bleed. No further rectal bleeding. Nosebleed has stopped since packing was placed and right side. No plans on endoscopic evaluation again likely secondary to significant epistaxis and swallowing blood. Would recommend considering ENT evaluation for nosebleed. Although patient has had further bowel movements with reported maroon-colored stool and clots, still likely secondary from epistaxis. No available ENT to pull packing out and evaluate nosebleed. Recommend further evaluation of e pistaxis before proceeding with upper and lower endoscopy. This was discussed both with the patient and the family and they are agreeable. This was also discussed with the primary attending physician. Current Visit: Yes Status: Acute Code(s): K62.5 - HEMORRHAGE OF ANUS AND RECTUM SNOMED Code(s): 20073156 (2) History of atrial fibrillation Current Visit: Yes Status: Acute Code(s): Z86.79 - PERSONAL HISTORY OF OTHER DISEASES OF THE CIRCULATORY SYSTEM SNOMED Code(s): 095937341 (3) Anemia Narrative/Plan: Likely secondary to acute blood loss from epistaxis. Current Visit: Yes Status: Acute Code(s): D64.9 - ANEMIA, UNSPECIFIED S NOMED Code(s): 446420206 (4) Epistaxis Narrative/Plan: ENT consulted, apparently there are no available eyewear manufacturing supervisor available in this hospital to see patient. Recommend transfer to tertiary center with ENT for further evaluation of epistaxis and to see if there is any continued bleeding. Current Visit: Yes Status: Acute Code(s): R04.0 - EPISTAXIS SNOMED Code(s): 874292413 Plan: 1. Continue symptomatic and supportive care 2. Diet as tolerated 3. Recommending deferring any endoscopic evaluation at this time until patient is evaluated by eyewear manufacturing supervisor 4. Daily CBC, transfuse for hemoglobin less than 7 5. Recommend transferring patient to higher level of care with ENT present for further evaluation of severe epistaxis. This was discussed with primary medical team. Thank you for this consultation, we will continue to follow. Dr. Tanvi Stephen I agree with the dictator's note, documented as a scribe by Ethel Meyers.
--- NOTE | 2023-11-13 15:20 | P.PN ---
Subjective Progress Note Date: 11/13/23 Hospital Course: 83-year-old male with history of atrial fibrillation on Eliquis, hypertension, osteoarthritis, gout, dementia, BPH presenting with epistaxis and hematochezia. In the ED, temperature was 98, pulse 138, respiratory 22, blood pressure 109/74, saturating at 97% on room air. Hemoglobin 9.2, baseline is around 14. INR 1.3, APTT 31.3, bicarb 20, BUN 18, creatinine 0.72, lactate 4, total magnesium 1.8. GI was consulted. Nose was packed. Patient being admitted for further obser vation and workup. Hemoglobin stable, GI recommending ENT consult. No ENT available in [place]. Being transferred to [facility]. Accepted by Dr. Hubbard. Pending bed availability. Subjective: Patient seen and examined at bedside. No acute events overnight. Still having bloody bowel movements. Pertinent positives and negatives as discussed above, a complete review of systems was performed and all other systems are negative. Vitals Signs Reviewed. General: nontoxic, no distress, appears at stated age Derm: warm, dry Head: atraumatic, normocephalic, symmetric Eyes: EOMI, no lid lag, anicteric sclera, pupils equal round reactive to light ENT: Nasal packing on the right no active bleeding Neck: No thyromegaly, supple Mouth: no lip lesion, mucus membranes moist, no blood noted within the mouth Cardiovascular: S1S2 tachycardic, irregular, no murmur, no edema Lungs: clear to auscultation bilateral, no rhonchi, no rales, no wheeze, no accessory muscle use Abdominal: soft, nontender to palpation, no guarding, no appreciable organomegaly Ext: no gross muscle atrophy, muscle strength muscle strength 5 out of 5 in all 4 extremities, no contractures Neuro: CN II-XII grossly intact Psych: Alert, oriented, appropriate affect Data Reviewed Today: Pertinent Labs: Hemoglobin 8.6, creatinine 0.60 Imaging: No new imaging Assessment and Plan: Patient is severely ill, needs close monitoring. Active: Acute epistaxis status post nasal packing Acute blood loss anemia, stable Suspected acute GI bleed Bright red blood per rectum -Discussed management with GI, unlikely to be GI bleed, likely from epistaxis -Hemoglobin stable -Hold Eliquis, -No ENT available in [place], pending transfer -Continue Protonix 40 IV twice daily -Continue to monitor CBC Atrial fibrillation with RVR, now rate controlled -Cardiology was consulted, note reviewed, metoprolol increased to 75 daily -Continue telemetry monitoring Resolved: Lactic acidosis Chronic: Hypertension Gout Dyslipidemia Dementia BPH DVT ppx: SCDs Code status: Full code Anticipated discharge place: Pending clinical course Anticipated discharge time: Pending clinical course Objective - Vital Signs Vital signs: Vital Signs Temp 98.5 F 11/13/23 11:25 Pulse 95 11/13/23 11:25 Resp 16 11/13/23 11:25 BP 136/78 11/13/23 11:25 Pulse Ox 96 11/13/23 11:25 FiO2 Intake & Output 11/12/23 11/13/23 11/13/23 18:59 06:59 18:59 Intake Total 2108 810 Output Total 500 150 1 Balance 1608 -150 809 Intake: Intake, IV Titration 1040 Amount Sodium Chloride 0.9% 1, 1040 000 ml @ 130 mls/hr IV . Q7H42M [facility] Rx#:[id number] Oral 1068 810 Output: Urine 500 150 Stool 1 Other: Voiding Method Toilet Toilet Toilet # Voids 4 - Labs CBC & Chem 7: 11/13/23 06:59 11/13/23 06:59 Labs: Abnormal Lab Results - Last 24 Hours (Table) 11/12/23 11/13/23 11/13/23 Range/Units 18:59 06:59 06:59 RBC 2.83 L 3.00 L (4.30-5.90) m/uL Hgb 8.1 L 8.6 L (13.0-17.5) gm/dL Hct 25.4 L 26.7 L (39.0-53.0) % Lymphocytes # 0.6 L (1.0-4.8) k/uL Chloride 109 H (98-107) mmol/L Creatinine 0.62 L (0.66-1.25) mg/dL Glucose 108 H (74-99) mg/dL
[2023-11-13 21:39] VITALS: BP 116/64; PULSE 82; TEMP 97.7
[2023-11-14] MEDS ORDERED: METOPROLOL SUCCINATE (ER) 25 MG TAB.ER.24H PO SCH (09:00)
--- NOTE | 2023-11-14 15:08 | P.DS ---
Providers Date of admission: 11/11/23 09:01 Expected date of discharge: 11/14/23 Attending physician: Sadie Henley MD Consults: 11/11/23 09:00 Consult Physician Urgent Consulting Provider: Gabby Stephen Consult Reason/Comments: hematochezia Do you want consulting provider notified?: Already Contacted 11/11/23 14:41 Consult Physician Routine Consulting Provider: Lawrence Moncada Consult Reason/Comments: epistaxis Do you want consulting provider notified?: Yes 11/13/23 10:20 Consult Physician Urgent Consulting Provider: Gilbert Jimenez Consult Reason/Comments: AFIB, ON ANTICOAGULATION, KNOWN TO CARDIOLO Do you want consulting provider notified?: Yes [facility] Course: Discharge Diagnosis: Acute epistaxis status post nasal packing Acute blood loss anemia, stable Suspected acute GI bleed Bright red blood per rectum Atrial fibrillation with RVR, now rate controlled Lactic acidosis Hospital Course: 83-year-old male with history of atrial fibrillation on Eliquis, hypertension, osteoarthritis, gout, dementia, BPH presenting with epistaxis and hematochezia. In the ED, temperature was 98, pulse 138, respiratory 22, blood pressure 109/74, saturating at 97% on room air. Hemoglobin 9.2, baseline is around 14. INR 1.3, APTT 31.3, bicarb 20, BUN 18, creatinine 0.72, lactate 4, total magnesium 1.8. GI was consulted. Nose was packed. Patient being admitted for further observation and workup. Hemoglobin stable, GI recommending ENT consult. No ENT available in [place]. Accepted by Dr. Hubbard. Patient transferred to [facility]. Patient Condition at Discharge: Undetermined Plan - Discharge Summary Discharge Rx Participant: No New Discharge Prescriptions: No Action Metoprolol Succinate (ER) [Toprol XL] 50 mg PO DAILY allopurinoL [Zyloprim] 300 mg PO DAILY Tamsulosin HCl [Flomax] 0.4 mg PO DAILY Olmesartan Medoxomil [Benicar] 40 mg PO DAILY Apixaban [Eliquis] 5 mg PO BID Atorvastatin [Lipitor] 40 mg PO HS amLODIPine [Norvasc] 10 mg PO DAILY hydrALAZINE HCL [Apresoline] 50 mg PO TID Triamcinolone 0.1% Cream [Kenalog 0.1% Cream] 1 applicatio TOPICAL BID PRN PRN Reason: Skin Irritation Sildenafil Citrate 50 - 100 mg PO DAILY PRN PRN Reason: E.D. Potassium Chloride ER [K-Dur 20] 20 meq PO DAILY hydrOXYzine HCL [Atarax] 25 mg PO HS PRN PRN Reason: Insomnia Meloxicam [Mobic] 15 mg PO DAILY Loratadine [Claritin] 10 mg PO DAILY Furosemide [Lasix] 20 mg PO DAILY Fluticasone Nasal [place] [Flonase Nasal [place]] 1 spray EA NOSTRIL BID PRN PRN Reason: Allergy Symptoms Donepezil 23mg Tab 23 mg PO DAILY Celecoxib [CeleBREX] 200 mg PO DAILY Discharge Medication List Metoprolol Succinate (ER) [Toprol XL] 50 mg PO DAILY 10/13/17 [History] allopurinoL [Zyloprim] 300 mg PO DAILY 10/13/17 [History] Tamsulosin HCl [Flomax] 0.4 mg PO DAILY 05/07/18 [History] Apixaban [Eliquis] 5 mg PO BID 07/29/18 [History] Atorvastatin [Lipitor] 40 mg PO HS 07/29/18 [History] Olmesartan Medoxomil [Benicar] 40 mg PO DAILY 07/29/18 [History] amLODIPine [Norvasc] 10 mg PO DAILY 07/29/18 [History] hydrALAZINE HCL [Apresoline] 50 mg PO TID 07/29/18 [History] Celecoxib [CeleBREX] 200 mg PO DAILY 11/11/23 [History] Donepezil 23mg Tab 23 mg PO DAILY 11/11/23 [History] Fluticasone Nasal [place] [Flonase Nasal [place]] 1 spray EA NOSTRIL BID PRN 11/11/23 [History] Furosemide [Lasix] 20 mg PO DAILY 11/11/23 [History] Loratadine [Claritin] 10 mg PO DAILY 11/11/23 [History] Meloxicam [Mobic] 15 mg PO DAILY 11/11/23 [History] Potassium Chloride ER [K-Dur 20] 20 meq PO DAILY 11/11/23 [History] Sildenafil Citrate 50 - 100 mg PO DAILY PRN 11/11/23 [History] Triamcinolone 0.1% Cream [Kenalog 0.1% Cream] 1 applicatio TOPICAL BID PRN 11/11/23 [History] hydrOXYzine HCL [Atarax] 25 mg PO HS PRN 11/11/23 [History] Follow up Appointment(s)/Referral(s): Julio Gurrola MD [Primary Care Provider] - 1-2 days [facility] Visiting Nurse, [NON-STAFF] - Discharge Disposition: TRANSFER TO SHORT TERM HOSP
== END 2023-11-13 21:40 | disposition short-term general hospital (02) | DRG 813 ==
LOC: EC 06:52 → 3SCARD 09:00 → OBSVTOIN 09:01 → 3SCARD 14:15
PROVIDERS: ADMIT Internal Medicine; ATTEND Internal Medicine
DX: D68.32 Hemorrhagic disorder due to extrinsic circulating anticoagulants (principal); E87.20 Acidosis, unspecified; K92.0 Hematemesis; D62 Acute posthemorrhagic anemia; I50.32 Chronic diastolic (congestive) heart failure; K62.5 Hemorrhage of anus and rectum; I11.0 Hypertensive heart disease with heart failure; F03.A0 Unspecified dementia, mild, without behavioral disturbance, psychotic disturbance, mood disturbance, and anxiety; I65.29 Occlusion and stenosis of unspecified carotid artery; I48.0 Paroxysmal atrial fibrillation; R04.0 Epistaxis; N40.0 Benign prostatic hyperplasia without lower urinary tract symptoms; E78.5 Hyperlipidemia, unspecified; M19.90 Unspecified osteoarthritis, unspecified site; M10.9 Gout, unspecified; Z79.01 Long term (current) use of anticoagulants; Z79.1 Long term (current) use of non-steroidal anti-inflammatories (NSAID); Z79.899 Other long term (current) drug therapy; Z86.73 Personal history of transient ischemic attack (TIA), and cerebral infarction without residual deficits; Z87.891 Personal history of nicotine dependence
CPT/HCPCS: 36415; 80048; 80053; 82272; 83605; 83735; 85025; 85027; 85610; 85730; 86850; 86900; 86901; 96361; 96374; 96376; 99285